=== PATIENT | female | born 1975 | race Caucasian/White ===

== ENCOUNTER 2018-11-16 20:02 | Inpatient (IN) ==
--- NOTE | 2018-11-16 20:21 | Emergency Department Note ---
ED Disposition Clinical Impression: Atypical chest pain, Hyponatremia Pancreatitis Qualifiers: Chronicity: acute Pancreatitis type: unspecified pancreatitis type Acute pancreatitis complication: no infection or necrosis Qualified Code(s): K85.90 - Acute pancreatitis without necrosis or infection, unspecified Disposition: Admitted As Inpatient Condition on Discharge: Fair Referrals: Nino Rose MD [Primary Care Provider] - - Critical Care Critical Care Time: No Attestation: On , the high probability of a clinically significant, sudden or life threatening deterioration of the following system(s) required my full and direct attention, intervention and personal management. The time I documented below is in addition to time spent performing reported procedures but includes the following listed in this critical care notation. Medical Decision Making - Medical Records Medical records reviewed: Yes: I reviewed the patient's medical records. - Efrain Inquiry Pt receiving controlled substance: No Vital Signs: 11/16/18 20:07 Temperature 98.8 F Temperature Source Oral Pulse Rate [Right] 102 H Respiratory Rate 18 Blood Pressure [Right Arm] 150/84 H Blood Pressure Mean [Right Arm] 106 Blood Pressure Source [Right Arm] Automatic Cuff Blood Pressure Position [Right Arm] Sitting 02 Sat by Pulse Oximetry 98 Oxygen Delivery Method Room Air - Lab Data Lab results reviewed: Yes: I reviewed the patient's lab results. Lab Results 11/16/18 20:20: WBC 14.2 H, RBC 4.45, Hgb 13.2, Hct 38.9, MCV 87.3, MCH 29.6, MCHC 34.1, RDW 13.0, Plt Count 326, MPV 7.4, Neut % (Auto) 74.5, Lymph % (Auto) 19.5, [place] % (Auto) 5.2, Eos % (Auto) 0.5, Baso % (Auto) 0.3, Neut # (Auto) 10.6 H, Lymph # (Auto) 2.8, [place] # (Auto) 0.7, Eos # (Auto) 0.1, Baso # (Auto) 0.1 11/16/18 20:20: Sodium 124 L, Potassium 3.6, Chloride 90 L, Carbon Dioxide 23, Anion Gap 14.6, BUN 11, Creatinine 0.86, Estimated Creat Clear 106, Estimated GFR 72, Est GFR ( Amer) 87, Glucose 121 H, Calcium 9.5, Troponin I < 0.02, Amylase 140 H 11/16/18 20:20: Total Bilirubin 0.5, Direct Bilirubin 0.1, Indirect Bilirubin 0.4, AST 23, ALT 31, Alkaline Phosphatase 84, Total Protein 8.0, Albumin 4.3, Lipase 590 H 11/16/18 20:35: Urine Color Yellow, Urine Appearance Clear, Urine pH 6.0, Ur Specific [place] 1.015, Urine Protein Negative, Urine Glucose (UA) Negative, Urine Ketones 1+, Urine Blood Negative, Urine Nitrate Negative, Urine Bilirubin Negative, Urine Urobilinogen 0.2, Ur Leukocyte Esterase Trace, Urine WBC Occasio nal, Ur Squamous Epith Cells 10-20 Result diagrams: 11/16/18 20:20 11/16/18 20:20 Orders (Tests/Meds): ED MEDICATIONS Generic Name Dose Route Start Last Admin Trade Name Freq PRN Reason Stop Dose Admin Sodium Chloride 1,000 mls @ 999 mls/hr 11/16/18 20:15 11/16/18 20:31 Sod Chlor 0.9% 1000ml Bag IV 11/16/18 21:15 999 mls/hr .[id number] ANNIE Administration Discontinued Medications Generic Name Dose Route Start Last Admin Trade Name Freq PRN Reason Stop Dose Admin Aspirin 324 mg 11/16/18 20:08 11/16/18 20:31 Aspirin 81mg Chewable Tablet PO 11/16/18 20:09 324 mg ONCE ONE Administration Ketorolac Tromethamine 30 mg 11/16/18 20:06 11/16/18 20:31 Toradol 30mg/Ml Vial IV 11/16/18 20:07 30 mg ONCE ONE Administration Morphine Sulfate 4 mg 11/16/18 21:48 Morphine 2mg/Ml Syringe IV 11/16/18 21:49 ONCE ONE Nitroglycerin 0.4 mg 11/16/18 20:06 11/16/18 20:30 Nitrostat 0.4mg Sl Tablet SL 11/16/18 20:07 Not Given ONCE ONE Ondansetron HCl 4 mg 11/16/18 20:06 11/16/18 20:31 Zofran 4mg/2ml Vial IV 11/16/18 20:07 4 mg ONCE ONE Administration Promethazine HCl 12.5 mg 11/16/18 21:49 Phenergan 25mg/Ml 1ml Vial IV 11/16/18 21:50 ONCE ONE Sodium Chloride 25 ml 11/16/18 21:49 Sod Chlor 0.9% 25ml Bag IV 11/16/18 21:50 ONCE ONE ORDERS Category Date Time Status CT abdomen pelvis wo con Stat Cat Scan 11/16/18 20:18 Taken Chest XR 2 view (NOT portable) [XR chest 2V] Stat Exams 11/16/18 20:05 Taken Lipid Panel Stat Lab 11/16/18 21:49 Ordered - Radiology Data #1 Image(s): Chest Image Reviewed: Yes I reviewed the patient's radiology image Preliminary Findings: Normal/NAD - CT Data CT Scan: Abdomen, Pelvis Time Received: 22:[address] Reviewed: Yes: I have viewed the radiologist's interpretation Preliminary Findings: Abnormal (acute pancreatitis) - ECG Data Tracing #1 I reviewed this ECG and interpreted as documented below: Normal Sinus Rhythm: Yes Ischemic changes: non-specific ST-T wave changes - Physician Consults Physician Consulted: ellie Reason -: Admission Chest Pain HPI - General Chief Complaint: Chest Pain Stated Complaint: chest pain Time Seen by Provider: 11/16/18 20:20 Mode of Arrival: Ambulatory Source of Information: Patient, Relative, Medical Record Limitations: No Limitations Description of Symptoms (Recalled from ER Triage Doc. by RN): Pt states she st arted having left chest pain this AM with hot flashes - History of Present Illness HPI narrative: pt with progressive upper abd pain over the last few days with nausea rad to back - no fever or vomiting - feels constipated - MD complaint: chest pain Onset (ago): day(s) Duration: intermittent Activity at onset: during rest Pain location: epigastric Severity: moderate Associated symptoms: nausea, vomiting Treatments prior to or on arrival for Cardiac Chest Pain: none - HAL Score for Non-Stemi Age of Patient: 40-49 years old Heart Rate: 90-109 bpm Systolic Blood Pressure: 140-159 mmHg Serum Creatinine: 0.80-1.19 mg/dl CHF [place] Class: I-No CHF Other Risk Factors: None Non-Stemi Risk Score: 71 - Related Data On Oral Contraceptives: No Home Medications Medication Instructions Recorded Confirmed Albuterol Sulfate [Proair Hfa 2 puffs IH Q4HP PRN 11/16/18 11/16/18 90mcg/puff Inh] Allergies Allergy/AdvReac Type Severity Reaction Status Date / Time No Known Allergies Allergy Verified 11/16/18 20:14 [facility] History - Hepatitis A Screen Drug use history?: No High risk sexual behaviors?: No History of sexually transmitted infection?: No Currently employed?: No Childcare worker?: No Do you have indoor plumbing?: Yes Do you have electricity?: Yes Attestation statement:: This patient has been screened for Hepatitis A risk factors. I have reviewed the patient's past medical history: Yes - Social History Alcohol Intake: never Occupational Status: unemployed - Psychiatric History Expresses thoughts of harming self/others: None Suicide Plan Description: No Plan ROS Obtained: Yes All systems reviewed & no additional complaints - Constitutional Constitutional: Denies fever(s) - Eyes Eyes: Denies change in vision - ENT Ears, Nose, Mouth, and Throat: Denies sore throat - Cardiovascular Cardiovascular: Reports chest pain, Denies dyspnea - Respiratory Respiratory: No cough - Gastrointestinal Gastrointestingal: Reports: as per HPI, constipation, nausea, vomiting. Denies: diarrhea - Genitourinary Female Genitourinary: Denies abnormal vaginal bleeding - Musculoskeletal Musculoskeletal: Denies joint pain - Integumentary/Breasts Skin/Breast: Denies rash - Neurologic Neurologic: Denies seizure-like activity Physical Exam - General General appearance: alert - Head Head exam: normocephalic - Eye Eye exam: Present: PERRL, EOMI. Absent: scleral icterus - ENT ENT exam: Present: mucous membranes moist - Neck Neck exam: Present: trachea midline - Respiratory Respiratory exam: Present: normal lung sounds bilaterally. Absent: respiratory distress - Cardiovascular Cardiovascular exam: Present: regular rate. Absent: systolic murmur - Abdominal Exam Abdominal exam: Present: soft, tenderness Abdominal tenderness: Present: LUQ, moderate - Extremities Exam Extremities exam: Present: full ROM - Neurological Exam Neurological exam: Present: alert, oriented X3, CN II-XII intact - Skin Skin exam: Absent: rash
[2018-11-16 20:30] LABS: Basophils % 0.3 % (0.1-2.0); Eosinophils # 0.1 K/mm3 (0.0-0.4); Eosinophils % 0.5 % (0.1-12.0); Hematocrit 38.9 % (37.0-47.0); Lymphocytes # 2.8 K/mm3 (0.7-4.5); Lymphocytes % 19.5 % (10-50); Mean Corpuscular Volume 87.3 fl (81-99); Mean Platelet Volume 7.4 fl (7.4-10.4); Monocytes # 0.7 K/mm3 (0.1-1.0); Monocytes % 5.2 % (1.7-9.3); Neutrophils # 10.6 K/mm3 (1.8-7.8); Neutrophils % 74.5 % (37.0-80.0); Platelet Count 326 K/mm3 (142-424); Red Blood Count 4.45 M/mm3 (4.20-5.40); White Blood Count 14.2 K/mm3 (4.8-10.8)
[2018-11-16 20:40] LABS: Mean Corpuscular HGB Conc 34.1 g/dL (31.8-35.4); Mean Corpuscular Hemoglobin 29.6 pg (27.0-31.2)
[2018-11-16 20:42] LABS: Basophils # 0.1 K/mm3 (0-0.2); Hemoglobin 13.2 g/dL (12.2-16.2)
[2018-11-16 20:45] LABS: Microscopic, Urine URINE MICROSCOPIC (MICROSCOPIC)
[2018-11-16 20:48] LABS: Potassium 3.6 mmoL/L (3.5-5.1)
[2018-11-16 20:55] LABS: Appearance,Urine CLEAR (Clear); Bilirubin,Urine Negative (Negative); Blood, Urine Negative (Negative); Color,Urine YELLOW (Yellow); Glucose,Urine (UA) Negative (Negative); Ketones,Urine 1+ (Negative); Leukocyte Esterase,Urine TRACE (Negative); Protein,Urine Negative (Negative); Specific Gravity, Urine 1.015 (1.005-1.030); Urobilinogen,Urine 0.2 EU/dl (0.2)
[2018-11-16 20:58] LABS: Anion Gap 14.6 mEq/L (5-15); Carbon Dioxide 23 mmol/L (21.0-32.0); Chloride 90 mmol/L (98-107); Sodium 124 mmol/L (136-145)
[2018-11-16 21:02] LABS: Bilirubin,Direct 0.1 mg/dL (0.0-0.2)
[2018-11-16 21:11] LABS: Blood Urea Nitrogen 11 mg/dL (7-18); Calcium 9.5 mg/dL (8.5-10.1); Glucose 121 mg/dL (74-106)
[2018-11-16 21:12] LABS: Albumin Level 4.3 gm/dL (3.4-5.0); Amylase 140 U/L (25-115); Bilirubin,Indirect 0.4 mg/dL (0.0-0.9); Bilirubin,Total 0.5 mg/dL (0.2-1.0)
[2018-11-16 21:13] LABS: WBC,Urine Occasional #/hpf (0-3)
[2018-11-17 06:37] LABS: Basophils % 0.3 % (0.1-2.0); Eosinophils # 0.1 K/mm3 (0.0-0.4); Eosinophils % 0.8 % (0.1-12.0); Hematocrit 32.9 % (37.0-47.0); Hemoglobin 12.7 g/dL (12.2-16.2); Lymphocytes % 18.6 % (10-50); Mean Corpuscular HGB Conc 38.7 g/dL (31.8-35.4); Mean Corpuscular Hemoglobin 33.9 pg (27.0-31.2); Mean Corpuscular Volume 87.7 fl (81-99); Mean Platelet Volume 7.4 fl (7.4-10.4); Monocytes # 0.6 K/mm3 (0.1-1.0); Monocytes % 5.3 % (1.7-9.3); Platelet Count 230 K/mm3 (142-424); Red Blood Count 3.75 M/mm3 (4.20-5.40); Red Cell Distribution Width 13.1 % (11.5-17.5); White Blood Count 10.7 K/mm3 (4.8-10.8)
[2018-11-17 07:00] LABS: Potassium 4.1 mmoL/L (3.5-5.1)
--- NOTE | 2018-11-17 07:37 | Pharmacy Consult Notes ---
[facility] Pharmacy VTE Monitoring - Patient Demographics Admission date: 11/16/18 Report Date: 11/17/18 Time: 07:37 Allergies/Adverse Reactions: Patient Allergies No Known Allergies Allergy (Verified 11/16/18 20:14) Height: 1.63 m Weight: 79.832 kg Patient Problems: Current Active Problems (Updated 11/16/18 @ 22:09 by Parvez Denney MD) Pancreatitis (Acute) Atypical chest pain (Acute) Hyponatremia (Acute) - VTE Risk Labs: VTE Related Lab Results Hgb 12.7 g/dL (12.2-16.2) 11/17/18 06:32 Hct 32.9 % (37.0-47.0) L 11/17/18 06:32 Plt Count 230 K/mm3 (142-424) D 11/17/18 06:32 BUN 11 mg/dL (7-18) 11/16/18 20:20 Creatinine 0.86 mg/dL (0.55-1.02) 11/16/18 20:20 Estimated Creat Clear 106 mL/min (50-200) 11/16/18 20:20 Was VTE Risk Assessment Performed: Yes VTE Score: 4 VTE Risk Level: Low Risk Clinical Trial Participant: No - Prophylaxis VTE Prophylaxis Ordered?: Yes Types of VTE Prophylaxis: TEDS Knee High
[2018-11-17 07:41] LABS: Anion Gap 13.1 mEq/L (5-15)
[2018-11-17 07:44] LABS: Calcium 7.3 mg/dL (8.5-10.1)
--- NOTE | 2018-11-17 08:24 | History & Physical Report ---
*Admission Date: 11/16/18 <Giovana Davis 11/17/18 08:24> *Chief complaint: Abdominal pain <Giovana Davis 11/17/18 08:38> *History of present illness: Ms Birmingham is a 43-year-old female with a history of depression and anxiety, and learning disability who for the past 4 days has been in a camp where she ate large quantities of food for each meal. She states she ate more than she has ever eaten. This included high fat foods and many carbs/sweets. Her bowels have moved only a small amount in the last 4 days. She developed abdominal pain, bloating, and belching. With the gas discomfort the pain did start to radiate up into her left chest. Thus she presented to [facility] emergency room for evaluation. With evaluation in the emergency room she received pain medicine, Zofran and Phenergan, and IV fluid bolus. She was felt to have a pancreatitis and was admitted for further evaluation and treatment. This a.m. she continues to feel bloated. She has passed no gas. She continues to belch. She remains n.p.o. She did sleep some after receiving pain medicine. <Giovana Davis 11/17/18 09:01> [facility] History Medical History: Reports:: Anxiety, Depression Denies:: Diabetes Mellitus Type 1, Diabetes Mellitus Type 2 <Giovana Davis 11/17/18 08:54> *Have you ever received a pneumonia vaccine?: No <Giovana Davis 11/17/18 08:24> *Have you received a flu vaccine this season?: Yes (fall 2017) <Giovana Davis 11/17/18 08:24> Comment:: allergies <Giovana Davis 11/17/18 08:54> Laterality Cases: Bilateral: Tonsillectomy <Giovana Davis 11/17/18 08:54> Other Surgeries: Yes: (x2), Tubal Ligation, Other (cryotherapy 4x- cervix) <Giovana Davis 11/17/18 08:24> Amputation: No <Giovana Davis 11/17/18 08:24> Fractures: No <Giovana Davis 11/17/18 08:24> Comment: Right wrist surgery x2 in 2000, bladder surgery 2009, urethral sling 2009, nose reconstruction in 2012 <RyanGiovana - 11/17/18 08:54> - *Social History Educational Level: Completed College <RyanGiovana - 11/17/18 08:24> Smoking Status: Former smoker <RyanGiovana - 11/17/18 08:24> Tobacco Type: cigarettes <RyanGiovana 11/17/18 08:24> Smoking End Date: 15 years ago <Giovana Davis 11/17/18 08:24> Alcohol Intake: current <RyanGiovana - 11/17/18 08:24> Alcohol Intake Frequency:: holidays/special occasions only <RyanGiovana - 11/17/18 08:24> *Occupational Status:: unemployed <RyanGiovana - 11/17/18 08:24> Housing: house <RyanGiovana 11/17/18 08:24> Household Members: spouse, children <RyanGiovana 11/17/18 08:24> *Travel in the last 8 weeks: None <RyanGiovana 11/17/18 08:24> - Psychiatric History Expresses thoughts of harming self/others: None <Giovana Davis 11/17/18 08:24> Suicide Plan Description: No Plan <RyanGiovana 11/17/18 08:24> Family Hx:: Asthma, Cancer, Coronary Artery Disease, Diabetes, Heart Attack, Hyperlipidemia, Hypertension, Kidney Disease, Stroke <Giovana Davis 11/17/18 08:24> Review of Systems - Constitutional Reports night sweats (Sometimes), Denies headache(s), Denies weakness <Giovana Davis 11/17/18 08:54> - ENT Denies ear pain, Denies sore throat <Giovana Davis 11/17/18 08:54> - *Cardiovascular Reports chest pain, Reports shortness of breath (When she has chest discomfort) <Giovana Davis 11/17/18 08:54> - *Respiratory Reports cough <Giovana Davis 11/17/18 08:54> Comments: She has had a recent cold <Giovana Davis 11/17/18 08:54> - *Gastrointestinal Reports abdominal pain, Reports belching, Reports bloating, Reports change in bowel habits, Reports change in stools, Reports constipation, Reports nausea, Denies coffee ground vomit, Denies loose stools, Denies vomiting blood, Denies bright, red blood in stools, Denies black, tarry stools, Denies vomiting [facility] 11/17/18 08:54> - *Genitourinary Denies difficulty urinating <[facility] 11/17/18 08:54> - *Musculoskeletal Denies abnormal walking, Denies joint pain, Denies body aches <[facility] 11/17/18 08:54> - *Neurologic Denies dizziness, Denies seizure-like activity <[facility] 11/17/18 08:54> - Psychiatric Reports anxiety, Reports depression <[facility] 11/17/18 08:54> Meds Home Medications Medication Instructions Recorded Confirmed Type Albuterol Sulfate [Proair Hfa 2 puffs IH QIDP PRN 11/16/18 11/17/18 History 90mcg/puff Inh] Beclomethasone Dipropionate [Qnasl] 2 spry NS DAILY PRN 11/17/18 11/17/18 History Benzonatate [Benzonatate 100mg 200 mg PO TID PRN 11/17/18 11/17/18 History cap] Carisoprodol [Soma 350mg tablet] 350 mg PO TIDP PRN 11/17/18 11/17/18 History Cetirizine HCl [Zyrtec] 10 mg PO DAILYP PRN 11/17/18 11/17/18 History Desog-E.estradiol/E.estradiol 1 tab PO DAILY 11/17/18 11/17/18 History [Azurette 28 Day Tablet] Meloxicam [Mobic 15 mg tab] 15 mg PO DAILY 11/17/18 11/17/18 History Montelukast Sodium [Singulair 10mg 10 mg PO PM PRN 11/17/18 11/17/18 History tablet] Olopatadine HCl [Pataday] 1 drp OP BIDP PRN 11/17/18 11/17/18 History SUMAtriptan succinate [Imitrex] 50 mg PO DIRECTED 11/17/18 11/17/18 History Tramadol HCl [Tramadol 50mg 50 mg PO TID PRN 11/17/18 11/17/18 History Tab] <Nino Rose - 11/17/18 14:11> Allergies Allergy/AdvReac Type Severity Reaction Status Date / Time No Known Allergies Allergy Verified 11/16/18 20:14 <Nino Rose - 11/17/18 14:11> Exam Vital signs and Labs for Last 24 Hours: Temp Pulse Resp BP Pulse Ox 99.0 F 93 H 18 119/80 97 11/17/18 08:00 11/17/18 08:00 11/17/18 08:00 11/17/18 08:00 11/17/18 08:00 Laboratory Results - last 24 hr 11/16/18 20:20: WBC 14.2 H, RBC 4.45, Hgb 13.2, Hct 38.9, MCV 87.3, MCH 29.6, MCHC 34.1, RDW 13.0, Plt Count 326, MPV 7.4, Neut % (Auto) 74.5, Lymph % (Auto) 19.5, [place] % (Auto) 5.2, Eos % (Auto) 0.5, Baso % (Auto) 0.3, Neut # (Auto) 10.6 H, Lymph # (Auto) 2.8, [place] # (Auto) 0.7, Eos # (Auto) 0.1, Baso # (Auto) 0.1 11/16/18 20:20: Sodium 124 L, Potassium 3.6, Chloride 90 L, Carbon Dioxide 23, Anion Gap 14.6, BUN 11, Creatinine 0.86, Estimated Creat Clear 106, Estimated GFR 72, Est GFR ( Amer) 87, Glucose 121 H, Calcium 9.5, Troponin I < 0.02, Amylase 140 H 11/16/18 20:20: Total Bilirubin 0.5, Direct Bilirubin 0.1, Indirect Bilirubin 0.4, AST 23, ALT 31, Alkaline Phosphatase 84, Total Protein 8.0, Albumin 4.3, Lipase 590 H 11/16/18 20:35: Urine Color Yellow, Urine Appearance Clear, Urine pH 6.0, Ur Specific [place] 1.015, Urine Protein Negative, Urine Glucose (UA) Negative, Urine Ketones 1+, Urine Blood Negative, Urine Nitrate Negative, Urine Bilirubin Negative, Urine Urobilinogen 0.2, Ur Leukocyte Esterase Trace, Urine WBC Occasional, Ur Squamous Epith Cells 10-20 11/17/18 06:32: WBC 10.7, RBC 3.75 L, Hgb 12.7, Hct 32.9 L, MCV 87.7, MCH 33.9 H , MCHC 38.7 H, RDW 13.1, Plt Count 230 D, MPV 7.4, Neut % (Auto) 75.0, Lymph % (Auto) 18.6, [place] % (Auto) 5.3, Eos % (Auto) 0.8, Baso % (Auto) 0.3, Neut # (Auto) 8.0 H, Lymph # (Auto) 2.0, [place] # (Auto) 0.6, Eos # (Auto) 0.1, Baso # (Auto) 0.0 11/17/18 06:32: Sodium 130 L, Potassium 4.1, Chloride 99, Carbon Dioxide 22, Anion Gap 13.1, BUN 12, Creatinine 0.67 D, Estimated Creat Clear 136, Estimated GFR 96, Est GFR ( Amer) 116 D, Glucose 121 H, Calcium 7.3 L D, Magnesium 1.9, Lipase 597 H 11/17/18 06:34: Triglycerides 4903 H*, Cholesterol 459 H, HDL Cholesterol 26 L, Cholesterol/HDL Ratio 17.7 H <Nino Rose - 11/17/18 14:11> Temp Pulse Resp BP Pulse Ox 98.5 F 91 H 17 102/66 L 97 11/17/18 03:42 11/17/18 03:42 11/17/18 03:42 11/17/18 03:42 11/17/18 03:42 Laboratory Results - last 24 hr 11/16/18 20:20: WBC 14.2 H, RBC 4.45, Hgb 13.2, Hct 38.9, MCV 87.3, MCH 29.6, MCHC 34.1, RDW 13.0, Plt Count 326, MPV 7.4, Neut % (Auto) 74.5, Lymph % (Auto) 19.5, [place] % (Auto) 5.2, Eos % (Auto) 0.5, Baso % (Auto) 0.3, Neut # (Auto) 10.6 H, Lymph # (Auto) 2.8, [place] # (Auto) 0.7, Eos # (Auto) 0.1, Baso # (Auto) 0.1 11/16/18 20:20: Sodium 124 L, Potassium 3.6, Chloride 90 L, Carbon Dioxide 23, Anion Gap 14.6, BUN 11, Creatinine 0.86, Estimated Creat Clear 106, Estimated GFR 72, Est GFR ( Amer) 87, Glucose 121 H, Calcium 9.5, Troponin I < 0.02, Amylase 140 H 11/16/18 20:20: Total Bilirubin 0.5, Direct Bilirubin 0.1, Indirect Bilirubin 0.4, AST 23, ALT 31, Alkaline Phosphatase 84, Total Protein 8.0, Albumin 4.3, Lipase 590 H 11/16/18 20:35: Urine Color Yellow, Urine Appearance Clear, Urine pH 6.0, Ur Specific [place] 1.015, Urine Protein Negative, Urine Glucose (UA) Negative, Urine Ketones 1+, Urine Blood Negative, Urine Nitrate Negative, Urine Bilirubin Negative, Urine Urobilinogen 0.2, Ur Leukocyte Esterase Trace, Urine WBC Occasional, Ur Squamous Epith Cells 10-20 11/17/18 06:32: WBC 10.7, RBC 3.75 L, Hgb 12.7, Hct 32.9 L, MCV 87.7, MCH 33.9 H , MCHC 38.7 H, RDW 13.1, Plt Count 230 D, MPV 7.4, Neut % (Auto) 75.0, Lymph % (Auto) 18.6, [place] % (Auto) 5.3, Eos % (Auto) 0.8, Baso % (Auto) 0.3, Neut # (Auto) 8.0 H, Lymph # (Auto) 2.0, [place] # (Auto) 0.6, Eos # (Auto) 0.1, Baso # (Auto) 0.0 11/17/18 06:32: Sodium 130 L, Potassium 4.1, Chloride 99, Carbon Dioxide 22, Anion Gap 13.1, BUN 12, Creatinine 0.67 D, Estimated Creat Clear 136, Estimated GFR 96, Est GFR ( Amer) 116 D, Glucose 121 H, Calcium 7.3 L D, Magnesium 1.9, Lipase 597 H <Giovana Davis 11/17/18 08:24> I & O for Last 24 hours: Intake & Output 11/15/18 11/16/18 11/17/18 11/18/18 11:59 11:59 11:59 11:59 Intake Total 1025 / 1025 Balance 1025 / 1025 Weight 176 lb <Nino Rose - 11/17/18 14:11> Intake & Output 11/14/18 11/15/18 11/16/18 11/17/18 11:59 11:59 11:59 11:59 Intake Total 1025 / 1025 Balance 1025 / 1025 Weight 176 lb <Giovana Davis 11/17/18 08:24> Radiology Reports for the Last 24 Hours: 11/16/18 CT abd/pelvis IMPRESSION: 1. Mild acute pancreatitis. 2. 11 mm left lower lobe nodule. Suggest [address] follow-up 11/16/2018 chest x-ray IMPRESSION: Negative chest, no acute finding <Giovana Davis 11/17/18 08:54> - Constitutional no acute distress <Giovana Davis 11/17/18 08:54> Comments: Abdominal discomfort with movement <Giovana Davis 11/17/18 08:54> - *Routine HEENT Exam Head: Present: normocephalic, atraumatic <Giovana Davis 11/17/18 08:54> Eye: Present: PERRL. Absent: conjunctival icterus, scleral injection <Giovana Davis 11/17/18 08:54> ENT: Present: mucous membranes moist, oropharynx clear, nares patent <Giovana Davis 11/17/18 08:54> - *Routine Neck Exam Present: supple. Absent: carotid bruit, lymphadenopathy, thyromegaly <Giovana Davis 11/17/18 08:54> - *Routine Respiratory Exam Present: CTA bilaterally (Anteriorly and posteriorly) <Giovana Davis 11/17/18 08:54> - *Routine Cardiovascular Exam Present: RRR <DavisGiovana 11/17/18 08:54> - *Routine Abdominal Exam Present: tenderness (Greater in the left mid and upper quadrant), distended <Giovana Davis 11/17/18 08:54> - *Routine Extremities Exam Present: pulses intact. Absent: edema, calf tenderness <Giovana Davis 11/17/18 08:54> - *Routine Neurological Exam Present: alert, oriented X3 <Roxanne Davishy 11/17/18 08:54> Assessment and Plan (1) Abdominal pain Current visit: Yes Status: Acute Category: Medical Code(s): R10.9 - Unspecified abdominal pain (2) Atypical chest pain Current visit: Yes Status: Acute Category: Medical Code(s): R07.89 - Other chest pain (3) Hyponatremia Current visit: Yes Status: Acute Category: Medical Code(s): E87.1 - Hypo- osmolality and hyponatremia (4) Pancreatitis Current visit: Yes Status: Acute Qualifiers: Chronicity: acute Pancreatitis type: unspecified pancreatitis type Acute pancreatitis complication: no infection or necrosis Qualified Code(s): K85.90 - Acute pancreatitis without necrosis or infection, unspecified Category: Medical Code(s): K85.90 - Acute pancreatitis without necrosis or infection, unspecified <Nino Rose 11/17/18 14:11> (1) Abdominal pain Current visit: Yes Status: Acute Category: Medical Code(s): R10.9 - Unspecified abdominal pain (2) Atypical chest pain Current visit: Yes Status: Acute Category: Medical Code(s): R07.89 - Other chest pain (3) Hyponatremia Current visit: Yes Status: Acute Category: Medical Code(s): E87.1 - Hypo- osmolality and hyponatremia (4) Pancreatitis Current visit: Yes Status: Acute Qualifiers: Chronicity: acute Pancreatitis type: unspecified pancreatitis type Acute pancreatitis complication: no infection or necrosis Qualified Code(s): K85.90 - Acute pancreatitis without necrosis or infection, unspecified Category: Medical Code(s): K85.90 - Acute pancreatitis without necrosis or infection, unspecified <Giovana Davis 11/17/18 08:59> - Assessment and plan all Dx Assessment and Plan for all problems:: Patient seen and examined. Concur with assessment and plan. Monitor labs. <Nino Rose 11/17/18 14:11> Gallbladder ultrasound. Continue with n.p.o. status. Will give Dulcolax suppository. <Giovana Davis - 11/17/18 09:01>
[2018-11-17 08:59] LABS: HDL Cholesterol 26 mg/dL (29-89)
[2018-11-17 09:51] LABS: Chol/HDL Ratio 17.7 (1-3.5); Cholesterol 459 mg/dL (140-200); Triglycerides 4903 mg/dL (30-200)
[2018-11-18 07:02] LABS: Basophils % 0.1 % (0.1-2.0); Eosinophils % 0.3 % (0.1-12.0); Hematocrit 33.5 % (37.0-47.0); Hemoglobin 11.6 g/dL (12.2-16.2); Lymphocytes # 1.6 K/mm3 (0.7-4.5); Lymphocytes % 12.8 % (10-50); Mean Corpuscular HGB Conc 34.6 g/dL (31.8-35.4); Mean Corpuscular Volume 89.4 fl (81-99); Mean Platelet Volume 7.6 fl (7.4-10.4); Monocytes # 0.6 K/mm3 (0.1-1.0); Monocytes % 4.8 % (1.7-9.3); Neutrophils # 9.9 K/mm3 (1.8-7.8); Platelet Count 238 K/mm3 (142-424); Red Blood Count 3.75 M/mm3 (4.20-5.40); Red Cell Distribution Width 13.2 % (11.5-17.5); White Blood Count 12.1 K/mm3 (4.8-10.8)
[2018-11-18 07:21] LABS: Albumin Level 2.4 gm/dL (3.4-5.0); Albumin/Globulin Ratio 0.6 (1.1-1.8); Anion Gap 21.4 mEq/L (5-15); Bilirubin,Total 0.7 mg/dL (0.2-1.0); Calcium 7.1 mg/dL (8.5-10.1); Globulin 3.9 gm/dl (1.3-3.2); Potassium 3.4 mmoL/L (3.5-5.1); Total Protein,Serum 6.3 gm/dL (6.4-8.2)
--- NOTE | 2018-11-18 09:04 | Progress Note ---
<Giovana Davis - Last Filed: 11/18/18 09:00> Internal Medicine - PN: Subj *Date: 11/18/18 *Time: 09:00 Interval history: Patient is feeling better. She has had flatus. She has had no stool. She has been n.p.o. She still has abdominal discomfort. She is comfortable as long as she does not move. Exam Vital signs and Labs for Last 24 Hours: Temp Pulse Resp BP Pulse Ox 99.1 F 101 H 17 113/72 94 L 11/18/18 08:00 11/18/18 08:00 11/18/18 08:00 11/18/18 08:00 11/18/18 08:00 Laboratory Results - last 24 hr 11/17/18 06:34: Triglycerides 4903 H*, Cholesterol 459 H, HDL Cholesterol 26 L, Cholesterol/HDL Ratio 17.7 H 11/18/18 06:52: WBC 12.1 H, RBC 3.75 L, Hgb 11.6 L, Hct 33.5 L, MCV 89.4, MCH 31.0, MCHC 34.6, RDW 13.2, Plt Count 238, MPV 7.6, Neut % (Auto) 82.0 H, Lymph % (Auto) 12.8, [place] % (Auto) 4.8, Eos % (Auto) 0.3, Baso % (Auto) 0.1, Neut # (Auto) 9.9 H, Lymph # (Auto) 1.6, [place] # (Auto) 0.6, Eos # (Auto) 0.0, Baso # (Auto) 0.0 11/18/18 06:52: Sodium 134 L, Potassium 3.4 L, Chloride 103, Carbon Dioxide 13 L D, Anion Gap 21.4 H, BUN 5 L D, Creatinine 0.62, Estimated Creat Clear 149, Estimated GFR 105, Est GFR ( Amer) 127, Glucose 143 H, Calcium 7.1 L, Total Bilirubin 0.7, AST 10 L D, ALT 17 D, Alkaline Phosphatase 63, Total Protein 6.3 L, Albumin 2.4 L D, Globulin 3.9 H, Albumin/Globulin Ratio 0.6 L, Amylase 141 H, Lipase 562 H I & O for Last 24 hours: Intake & Output 11/15/18 11/16/18 11/17/18 05/07/19 11:59 11:59 11:59 11:59 Intake Total 5 / 5 853 / 853 Balance 5 / 5 853 / 853 Weight 176 lb 178 lb - Constitutional no acute distress - *Routine Respiratory Exam Present: CTA bilaterally - *Routine Cardiovascular Exam Present: RRR - *Routine Abdominal Exam Comments: Abdomen is softer today. She is still distended. Positive bowel sounds. - *Routine Extremities Exam Absent: edema Assessment and Plan (1) Abdominal pain Current visit: Yes Status: Acute Category: Medical Code(s): R10.9 - Unspecified abdominal pain (2) Atypical chest pain Current visit: Yes Status: Acute Category: Medical Code(s): R07.89 - Other chest pain (3) Hyponatremia Current visit: Yes Status: Acute Category: Medical Code(s): E87.1 - Hypo- osmolality and hyponatremia (4) Pancreatitis Current visit: Yes Status: Acute Qualifiers: Chronicity: acute Pancreatitis type: unspecified pancreatitis type Acute pancreatitis complication: no infection or necrosis Qualified Code(s): K85.90 - Acute pancreatitis without necrosis or infection, unspecified Category: Medical Code(s): K85.90 - Acute pancreatitis without necrosis or infection, unspecified (5) Hypercholesterolemia with hypertriglyceridemia Current visit: Yes Status: Acute Category: Medical Code(s): E78.2 - Mixed hyperlipidemia - Assessment and plan all Dx Assessment and Plan for all problems:: Was started on insulin drip for high triglycerides. Continue with comfort and nausea management. Will try clear liquids. <Nino Rose - Last Filed: 11/18/18 16:42> Internal Medicine - PN: Subj *Date: 11/18/18 *Time: 16:34 Exam Vital signs and Labs for Last 24 Hours: Temp Pulse Resp BP Pulse Ox 99.1 F 102 H 22 118/65 94 L 11/18/18 08:00 11/18/18 16:11 11/18/18 16:11 11/18/18 16:00 11/18/18 16:11 Laboratory Results - last 24 hr 11/18/18 06:52: WBC 12.1 H, RBC 3.75 L, Hgb 11.6 L, Hct 33.5 L, MCV 89.4, MCH 31.0, MCHC 34.6, RDW 13.2, Plt Count 238, MPV 7.6, Neut % (Auto) 82.0 H, Lymph % (Auto) 12.8, [place] % (Auto) 4.8, Eos % (Auto) 0.3, Baso % (Auto) 0.1, Neut # (Auto) 9.9 H, Lymph # (Auto) 1.6, [place] # (Auto) 0.6, Eos # (Auto) 0.0, Baso # (Auto) 0.0 11/18/18 06:52: Sodium 134 L, Potassium 3.4 L, Chloride 103, Carbon Dioxide 13 L D, Anion Gap 21.4 H, BUN 5 L D, Creatinine 0.62, Estimated Creat Clear 149, Estimated GFR 105, Est GFR ( Amer) 127, Glucose 143 H, Calcium 7.1 L, Total Bilirubin 0.7, AST 10 L D, ALT 17 D, Alkaline Phosphatase 63, Total P rotein 6.3 L, Albumin 2.4 L D, Globulin 3.9 H, Albumin/Globulin Ratio 0.6 L, Amylase 141 H, Lipase 562 H 11/18/18 10:41: POC Glucose 104 I & O for Last 24 hours: Intake & Output 11/16/18 11/17/18 11/18/18 11/19/18 11:59 11:59 11:59 11:59 Intake Total 1025 / 1025 853 / 853 Output Total 1800 / 1800 Balance 1025 / 1025 853 / 853 -1800 / -1800 Weight 176 lb 178 lb Assessment and Plan (1) Acute pancreatitis Current visit: Yes Status: Acute Category: Medical Code(s): K85.90 - Acute pancreatitis without necrosis or infection, unspecified (2) Primary hypertriglyceridemia Current visit: Yes Status: Acute Category: Medical Code(s): E78.1 - Pure hyperglyceridemia (3) Abdominal pain Current visit: Yes Status: Acute Category: Medical Code(s): R10.9 - Unspecified abdominal pain (4) Atypical chest pain Current visit: Yes Status: Acute Category: Medical Code(s): R07.89 - Other chest pain (5) Hyponatremia Current visit: Yes Status: Acute Category: Medical Code(s): E87.1 - Hypo- osmolality and hyponatremia (6) Hypercholesterolemia with hypertriglyceridemia Current visit: Yes Status: Acute Category: Medical Code(s): E78.2 - Mixed hyperlipidemia - Assessment and plan all Dx Assessment and Plan for all problems:: Patient seen and examined. Still having abdominal pain. Has passed flatus but no BM. She is less distended but still very tender, diffusely. Will initiate insulin drip for her severe hypertriglyceridemia. Change fluids to D51/2NS. Monitor labs.
[2018-11-19 06:31] LABS: Basophils % 0.2 % (0.1-2.0); Eosinophils # 0.1 K/mm3 (0.0-0.4); Eosinophils % 0.7 % (0.1-12.0); Hematocrit 31.2 % (37.0-47.0); Lymphocytes # 1.7 K/mm3 (0.7-4.5); Lymphocytes % 12.3 % (10-50); Mean Corpuscular HGB Conc 33.4 g/dL (31.8-35.4); Mean Corpuscular Hemoglobin 30.3 pg (27.0-31.2); Mean Corpuscular Volume 90.6 fl (81-99); Mean Platelet Volume 7.7 fl (7.4-10.4); Monocytes # 0.8 K/mm3 (0.1-1.0); Monocytes % 5.8 % (1.7-9.3); Neutrophils # 11.1 K/mm3 (1.8-7.8); Neutrophils % 80.9 % (37.0-80.0); Platelet Count 253 K/mm3 (142-424); Red Blood Count 3.45 M/mm3 (4.20-5.40); Red Cell Distribution Width 13.3 % (11.5-17.5); White Blood Count 13.7 K/mm3 (4.8-10.8)
[2018-11-19 06:55] LABS: Albumin Level 2.4 gm/dL (3.4-5.0); Albumin/Globulin Ratio 0.6 (1.1-1.8); Anion Gap 11.3 mEq/L (5-15); Bilirubin,Total 0.9 mg/dL (0.2-1.0); Chol/HDL Ratio 5.6 (1-3.5); Potassium 3.3 mmoL/L (3.5-5.1); Total Protein,Serum 6.4 gm/dL (6.4-8.2)
[2018-11-19 07:50] LABS: Hemoglobin 10.5 g/dL (12.2-16.2)
--- NOTE | 2018-11-19 08:14 | Progress Note ---
<Giovana Davis - Last Filed: 11/19/18 08:27> Internal Medicine - PN: Subj *Date: 11/19/18 *Time: 08:27 Interval history: States that she had a rough night last night. Continues with abdominal pain requiring morphine which does give her nausea. Zofran helps. She passed flatus yesterday but none this a.m. She is belching. She took minimal p.o. liquids yesterday. Abdomen feels less distended. She denies chest pain and shortness of breath. She did have a fever last night with high Of 101.3. She generally does not feel well. Patient reports hematuria. Patient has been seen by Dr. Rose. Triglycerides dramatically decreased and insulin drip has been discontinued. Exam Vital signs and Labs for Last 24 Hours: Temp Pulse Resp BP Pulse Ox 99.3 F 99 H 22 116/59 L 91 L 11/19/18 06:00 11/19/18 06:00 11/19/18 06:00 11/19/18 06:00 11/19/18 06:00 Laboratory Results - last 24 hr 11/18/18 10:41: POC Glucose 104 11/18/18 12:04: POC Glucose 134 H 11/18/18 13:47: POC Glucose 148 H 11/18/18 15:42: POC Glucose 142 H 11/18/18 17:42: POC Glucose 144 H 11/18/18 20:10: POC Glucose 154 H 11/18/18 22:42: POC Glucose 169 H 11/19/18 00:02: POC Glucose 154 H 11/19/18 02:07: POC Glucose 116 H 11/19/18 03:45: POC Glucose 108 11/19/18 05:57: POC Glucose 102 11/19/18 06:14: WBC 13.7 H, RBC 3.45 L, Hgb 10.5 L, Hct 31.2 L, MCV 90.6, MCH 30.3, MCHC 33.4, RDW 13.3, Plt Count 253, MPV 7.7, Neut % (Auto) 80.9 H, Lymph % (Auto) 12.3, [place] % (Auto) 5.8, Eos % (Auto) 0.7, Baso % (Auto) 0.2, Neut # (Auto) 11.1 H, Lymph # (Auto) 1.7, [place] # (Auto) 0.8, Eos # (Auto) 0.1, Baso # (Auto) 0.0 11/19/18 06:14: Sodium 137, Potassium 3.3 L, Chloride 105, Carbon Dioxide 24 D, Anion Gap 11.3, BUN 3 L D, Creatinine 0.75 D, Estimated Creat Clear 123, Estimated GFR 84, Est GFR ( Amer) 102, Glucose 101 D, Calcium 8.0 L D, Total Bilirubin 0.9, AST 19 D, ALT 20, Alkaline Phosphatase 65, Total Protein 6.4, Albumin 2.4 L, Globulin 4.0 H, Albumin/Globulin Ratio 0.6 L, Triglycerides 289 H, Cholesterol 241 H, LDL Cholesterol 140 H, VLDL Cholesterol 58 H, HDL Cholesterol 43, Cholesterol/HDL Ratio 5.6 H, Lipase 340 I & O for Last 24 hours: Intake & Output 11/16/18 11/17/18 11/18/18 11/19/18 11:59 11:59 11:59 11:59 Intake Total 1025 / 1025 853 / 853 2260 / 2260 Output Total 3550 / 3550 Balance 1025 / 1025 853 / 853 -1290 / -1290 Weight 176 lb 178 lb - Constitutional no acute distress - *Routine Respiratory Exam Comments: Bibasilar crackles. - *Routine Cardiovascular Exam Present: RRR - *Routine Abdominal Exam Present: soft, normoactive bowel sounds, tenderness, distended (Diffusely tender) - *Routine Extremities Exam Present: pulses intact. Absent: edema - *Routine Neurological Exam Present: alert, oriented X3 Assessment and Plan (1) Acute pancreatitis Current visit: Yes Status: Acute Category: Medical Code(s): K85.90 - Acute pancreatitis without necrosis or infection, unspecified (2) Primary hypertriglyceridemia Current visit: Yes Status: Acute Category: Medical Code(s): E78.1 - Pure hyperglyceridemia (3) Abdominal pain Current visit: Yes Status: Acute Category: Medical Code(s): R10.9 - Unspecified abdominal pain (4) Atypical chest pain Current visit: Yes Status: Acute Category: Medical Code(s): R07.89 - Other chest pain (5) Hyponatremia Current visit: Yes Status: Acute Category: Medical Code(s): E87.1 - Hypo- osmolality and hyponatremia (6) Hypercholesterolemia with hypertriglyceridemia Current visit: Yes Status: Acute Category: Medical Code(s): E78.2 - Mixed hyperlipidemia (7) Hematuria Current visit: Yes Status: Acute Category: Medical Code(s): R31.9 - Hematuria, unspecified (8) Hypokalemia Current visit: Yes Status: Acute Category: Medical Code(s): E87.6 - Hypokalemia - Assessment and plan all Dx Assessment and Plan for all problems:: We will repeat urinalysis. Will start fenofibrate and KCL. Will continue with GI rest until symptoms improve. Continue with IV fluids as well. <Nino Rose - Last Filed: 11/19/18 08:38> Internal Medicine - PN: Subj *Date: 11/19/18 *Time: 08:35 Exam Vital signs and Labs for Last 24 Hours: Temp Pulse Resp BP Pulse Ox 99.3 F 99 H 22 116/59 L 91 L 11/19/18 06:00 11/19/18 06:00 11/19/18 06:00 11/19/18 06:00 11/19/18 06:00 Laboratory Results - last 24 hr 11/18/18 10:41: POC Glucose 104 11/18/18 12:04: POC Glucose 134 H 11/18/18 13:47: POC Glucose 148 H 11/18/18 15:42: POC Glucose 142 H 11/18/18 17:42: POC Glucose 144 H 11/18/18 20:10: POC Glucose 154 H 11/18/18 22:42: POC Glucose 169 H 11/19/18 00:02: POC Glucose 154 H 11/19/18 02:07: POC Glucose 116 H 11/19/18 03:45: POC Glucose 108 11/19/18 05:57: POC Glucose 102 11/19/18 06:14: WBC 13.7 H, RBC 3.45 L, Hgb 10.5 L, Hct 31.2 L, MCV 90.6, MCH 30.3, MCHC 33.4, RDW 13.3, Plt Count 253, MPV 7.7, Neut % (Auto) 80.9 H, Lymph % (Auto) 12.3, [place] % (Auto) 5.8, Eos % (Auto) 0.7, Baso % (Auto) 0.2, Neut # (Auto) 11.1 H, Lymph # (Auto) 1.7, [place] # (Auto) 0.8, Eos # (Auto) 0.1, Baso # (Auto) 0.0 11/19/18 06:14: Sodium 137, Potassium 3.3 L, Chloride 105, Carbon Dioxide 24 D, Anion Gap 11.3, BUN 3 L D, Creatinine 0.75 D, Estimated Creat Clear 123, Estimated GFR 84, Est GFR ( Amer) 102, Glucose 101 D, Calcium 8.0 L D, Total Bilirubin 0.9, AST 19 D, ALT 20, Alkaline Phosphatase 65, Total Protein 6.4, Albumin 2.4 L, Globulin 4.0 H, Albumin/Globulin Ratio 0.6 L, Triglycerides 289 H, Cholesterol 241 H, LDL Cholesterol 140 H, VLDL Cholesterol 58 H, HDL Cholesterol 43, Cholesterol/HDL Ratio 5.6 H, Lipase 340 I & O for Last 24 hours: Intake & Output 11/16/18 11/17/18 11/18/18 11/19/18 11:59 11:59 11:59 11:59 Intake Total 1025 / 1025 853 / 853 2260 / 2260 Output Total 3550 / 3550 Balance 1025 / 1025 853 / 853 -1290 / -1290 Weight 176 lb 178 lb Assessment and Plan (1) Acute pancreatitis Current visit: Yes Status: Acute Category: Medical Code(s): K85.90 - Acute pancreatitis without necrosis or infection, unspecified (2) Primary hypertriglyceridemia Current visit: Yes Status: Acute Category: Medical Code(s): E78.1 - Pure hyperglyceridemia (3) Abdominal pain Current visit: Yes Status: Acute Category: Medical Code(s): R10.9 - Unspecified abdominal pain (4) Atypical chest pain Current visit: Yes Status: Acute Category: Medical Code(s): R07.89 - Other chest pain (5) Hyponatremia Current visit: Yes Status: Acute Category: Medical Code(s): E87.1 - Hypo- osmolality and hyponatremia (6) Hypercholesterolemia with hypertriglyceridemia Current visit: Yes Status: Acute Category: Medical Code(s): E78.2 - Mixed hyperlipidemia (7) Hematuria Current visit: Yes Status: Acute Category: Medical Code(s): R31.9 - Hem aturia, unspecified (8) Hypokalemia Current visit: Yes Status: Acute Category: Medical Code(s): E87.6 - Hypokalemia - Assessment and plan all Dx Assessment and Plan for all problems:: Patient seen and examined. Pain is rated at 5/10. Tolerating few clear liquids. Trigs much improved. Will d/c insulin drip and start Fenofibrate. One episode of low grade fever last night. C/o "pink urine". Will check UA. [place] score is 2..
[2018-11-19 09:46] LABS: Microscopic, Urine URINE MICROSCOPIC (MICROSCOPIC)
[2018-11-19 09:50] LABS: Appearance,Urine CLEAR (Clear); Bilirubin,Urine Negative (Negative); Blood, Urine TRACE-I (Negative); Color,Urine YELLOW (Yellow); Glucose,Urine (UA) Negative (Negative); Ketones,Urine Negative (Negative); Leukocyte Esterase,Urine 2+ (Negative); Protein,Urine Negative (Negative); Specific Gravity, Urine <= 1.005 (1.005-1.030); Urobilinogen,Urine 0.2 EU/dl (0.2)
[2018-11-19 10:17] LABS: Bacteria,Urine 1+ /lpf; RBC,Urine Occasional #/hpf (0-3)
[2018-11-20 07:14] LABS: Basophils % 0.2 % (0.1-2.0); Eosinophils # 0.1 K/mm3 (0.0-0.4); Eosinophils % 0.9 % (0.1-12.0); Hematocrit 31.9 % (37.0-47.0); Hemoglobin 10.2 g/dL (12.2-16.2); Lymphocytes # 2.1 K/mm3 (0.7-4.5); Lymphocytes % 17.7 % (10-50); Mean Corpuscular HGB Conc 31.8 g/dL (31.8-35.4); Mean Corpuscular Hemoglobin 29.7 pg (27.0-31.2); Mean Corpuscular Volume 93.5 fl (81-99); Mean Platelet Volume 7.8 fl (7.4-10.4); Monocytes # 0.7 K/mm3 (0.1-1.0); Monocytes % 5.8 % (1.7-9.3); Neutrophils # 8.8 K/mm3 (1.8-7.8); Neutrophils % 75.3 % (37.0-80.0); Platelet Count 284 K/mm3 (142-424); Red Blood Count 3.42 M/mm3 (4.20-5.40); Red Cell Distribution Width 13.3 % (11.5-17.5); White Blood Count 11.7 K/mm3 (4.8-10.8)
[2018-11-20 07:31] LABS: Albumin Level 2.3 gm/dL (3.4-5.0); Albumin/Globulin Ratio 0.5 (1.1-1.8); Anion Gap 13.6 mEq/L (5-15); Bilirubin,Total 0.8 mg/dL (0.2-1.0); Calcium 8.2 mg/dL (8.5-10.1); Chol/HDL Ratio 7.9 (1-3.5); Globulin 4.3 gm/dl (1.3-3.2); Potassium 3.6 mmoL/L (3.5-5.1); Total Protein,Serum 6.6 gm/dL (6.4-8.2)
--- NOTE | 2018-11-20 08:26 | Progress Note ---
<April Carmona - Last Filed: 11/20/18 08:25> Internal Medicine - PN: Subj *Date: 11/20/18 *Time: 08:25 Interval history: Patient is still feeling poorly today. She complains of diffuse abdominal pain and nausea. She is getting antiemetics which helped. She has not had any breakfast this morning. She states she has slept for the last day and a half. Exam Vital signs and Labs for Last 24 Hours: Temp Pulse Resp BP Pulse Ox 99 F 84 16 124/76 91 L 11/20/18 04:00 11/20/18 04:00 11/20/18 04:00 11/20/18 04:00 11/20/18 04:00 Laboratory Results - last 24 hr 11/19/18 09:00: Urine Color Yellow, Urine Appearance Clear, Urine pH 6.0, Ur Specific [place] <= 1.005, Urine Protein Negative, Urine Glucose (UA) Negative, Urine Ketones Negative, Urine Blood Trace-i, Urine Nitrate Negative, Urine Bilirubin Negative, Urine Urobilinogen 0.2, Ur Leukocyte Esterase 2+ A, Urine RBC Occasional, Urine WBC 5-10, Ur Squamous Epith Cells 10-20, Urine Bacteria 1+ 11/20/18 06:55: WBC 11.7 H, RBC 3.42 L, Hgb 10.2 L, Hct 31.9 L, MCV 93.5, MCH 29.7, MCHC 31.8, RDW 13.3, Plt Count 284, MPV 7.8, Neut % (Auto) 75.3, Lymph % (Auto) 17.7, [place] % (Auto) 5.8, Eos % (Auto) 0.9, Baso % (Auto) 0.2, Neut # (Auto) 8.8 H, Lymph # (Auto) 2.1, [place] # (Auto) 0.7, Eos # (Auto) 0.1, Baso # (Auto) 0.0 11/20/18 06:55: Sodium 141, Potassium 3.6, Chloride 106, Carbon Dioxide 25, Anion Gap 13.6, BUN 5 L D, Creatinine 0.72, Estimated Creat Clear 131, Estimated GFR 88, Est GFR ( Amer) 107, Glucose 106, Calcium 8.2 L, Total Bilirubin 0.8, AST 23, ALT 27 D, Alkaline Phosphatase 71, Total Protein 6.6, Albumin 2.3 L, Globulin 4.3 H, Albumin/Globulin Ratio 0.5 L, Triglycerides 244 H, Cholesterol 262 H, LDL Cholesterol 180 H, VLDL Cholesterol 49 H, HDL Cholesterol 33, Cholesterol/HDL Ratio 7.9 H, Amylase 86, Lipase 297 I & O for Last 24 hours: Intake & Output 11/17/18 11/18/18 11/19/18 11/20/18 11:59 11:59 11:59 11:59 Intake Total 1025 / 1025 853 / 853 2260 / 2260 1740 / 1740 Output Total 3550 / 3550 2600 / 2600 Balance 1025 / 1025 853 / 853 -1290 / -1290 -860 / -860 Weight 176 lb 178 lb 182 lb 2 oz - Constitutional no acute distress - *Routine Respiratory Exam Present: CTA bilaterally - *Routine Cardiovascular Exam Present: RRR - *Routine Abdominal Exam Present: soft, normoactive bowel sounds, tenderness (diffuse) - *Routine Extremities Exam Absent: cyanosis, clubbing, edema Assessment and Plan (1) Acute pancreatitis Current visit: Yes Status: Acute Category: Medical Code(s): K85.90 - Acute pancreatitis without necrosis or infection, unspecified (2) Primary hypertriglyceridemia Current visit: Yes Status: Acute Category: Medical Code(s): E78.1 - Pure hyperglyceridemia (3) Abdominal pain Current visit: Yes Status: Acute Category: Medical Code(s): R10.9 - Unspecified abdominal pain (4) Atypical chest pain Current visit: Yes Status: Acute Category: Medical Code(s): R07.89 - Other chest pain (5) Hyponatremia Current visit: Yes Status: Acute Category: Medical Code(s): E87.1 - Hypo- osmolality and hyponatremia (6) Hypercholesterolemia with hypertriglyceridemia Current visit: Yes Status: Acute Category: Medical Code(s): E78.2 - Mixed hyperlipidemia (7) Hematuria Current visit: Yes Status: Acute Category: Medical Code(s): R31.9 - Hematuria, unspecified (8) Hypokalemia Current visit: Yes Status: Acute Category: Medical Code(s): E87.6 - Hypokalemia - Assessment and plan all Dx Assessment and Plan for all problems:: White blood cell count is improving. Potassium is normalized. Amylase and lipase are normal. Will discuss further care with Dr. Rose. <Nino Rose - Last Filed: 11/20/18 17:45> Internal Medicine - PN: Subj *Date: 11/20/18 *Time: 17:44 Exam Vital signs and Labs for Last 24 Hours: Temp Pulse Resp BP Pulse Ox 98.5 F 82 16 144/84 H 91 L 11/20/18 16:00 11/20/18 16:00 11/20/18 16:00 11/20/18 16:00 11/20/18 16:00 Laboratory Results - last 24 hr 11/20/18 06:55: WBC 11.7 H, RBC 3.42 L, Hgb 10.2 L, Hct 31.9 L, MCV 93.5, MCH 29.7, MCHC 31.8, RDW 13.3, Plt Count 284, MPV 7.8, Neut % (Auto) 75.3, Lymph % (Auto) 17.7, [place] % (Auto) 5.8, Eos % (Auto) 0.9, Baso % (Auto) 0.2, Neut # (Auto) 8.8 H, Lymph # (Auto) 2.1, [place] # (Auto) 0.7, Eos # (Auto) 0.1, Baso # (Auto) 0.0 11/20/18 06:55: Sodium 141, Potassium 3.6, Chloride 106, Carbon Dioxide 25, Anion Gap 13.6, BUN 5 L D, Creatinine 0.72, Estimated Creat Clear 131, Estimated GFR 88, Est GFR ( Amer) 107, Glucose 106, Calcium 8.2 L, Total Bilirubin 0.8, AST 23, ALT 27 D, Alkaline Phosphatase 71, Total Protein 6.6, Albumin 2.3 L, Globulin 4.3 H, Albumin/Globulin Ratio 0.5 L, Triglycerides 244 H, [place] 262 H, LDL Cholesterol 180 H, VLDL Cholesterol 49 H, HDL Cholesterol 33, Cholesterol/HDL Ratio 7.9 H, Amylase 86, Lipase 297 I & O for Last 24 hours: Intake & Output 11/18/18 11/19/18 11/20/18 11/21/18 11:59 11:59 11:59 11:59 Intake Total 853 / 853 2260 / 2260 1740 / 1740 Output Total 3550 / 3550 2600 / 2600 Balance 853 / 853 -1290 / -1290 -860 / -860 Weight 178 lb 182 lb 2 oz Microbiology Reports for the Last 24 Hours: Microbiology 11/19/18 09:00 Urine,Random Urine Culture - Preliminary NO GROWTH AFTER 24 HOURS Assessment and Plan (1) Acute pancreatitis Current visit: Yes Status: Acute Category: Medical Code(s): K85.90 - Acute pancreatitis without necrosis or infection, unspecified (2) Primary hypertriglyceridemia Current visit: Yes Status: Acute Category: Medical Code(s): E78.1 - Pure hyperglyceridemia (3) Abdominal pain Current visit: Yes Status: Acute Category: Medical Code(s): R10.9 - Unspecified abdominal pain (4) Atypical chest pain Current visit: Yes Status: Acute Category: Medical Code(s): R07.89 - Other chest pain (5) Hyponatremia Current visit: Yes Status: Acute Category: Medical Code(s): E87.1 - Hypo- osmolality and hyponatremia (6) Hypercholesterolemia with hypertriglyceridemia Current visit: Yes Status: Acute Category: Medical Code(s): E78.2 - Mixed hyperlipidemia (7) Hematuria Current visit: Yes Status: Acute Category: Medical Code(s): R31.9 - Hematuria, unspecified (8) Hypokalemia Current visit: Yes Status: Acute Category: Medical Code(s): E87.6 - Hypokalemia - Assessment and plan all Dx Assessment and Plan for all problems:: Patient seen and examined. Her labs are better but clinically her pain, nausea and bloating have not improved. Will plan to repeat CT scan and consult with Dr. Lee.
[2018-11-21 06:17] LABS: Basophils % 0.3 % (0.1-2.0); Eosinophils # 0.1 K/mm3 (0.0-0.4); Hematocrit 29.9 % (37.0-47.0); Hemoglobin 9.6 g/dL (12.2-16.2); Lymphocytes % 20.9 % (10-50); Mean Corpuscular HGB Conc 32.2 g/dL (31.8-35.4); Mean Corpuscular Hemoglobin 30.1 pg (27.0-31.2); Mean Corpuscular Volume 93.4 fl (81-99); Mean Platelet Volume 7.5 fl (7.4-10.4); Monocytes # 0.7 K/mm3 (0.1-1.0); Monocytes % 7.2 % (1.7-9.3); Neutrophils # 6.7 K/mm3 (1.8-7.8); Neutrophils % 70.6 % (37.0-80.0); Platelet Count 299 K/mm3 (142-424); Red Cell Distribution Width 13.2 % (11.5-17.5); White Blood Count 9.5 K/mm3 (4.8-10.8)
[2018-11-21 06:28] LABS: Albumin Level 2.2 gm/dL (3.4-5.0); Albumin/Globulin Ratio 0.5 (1.1-1.8); Anion Gap 11.7 mEq/L (5-15); Bilirubin,Total 0.9 mg/dL (0.2-1.0); Calcium 8.2 mg/dL (8.5-10.1); Globulin 4.1 gm/dl (1.3-3.2); Potassium 3.7 mmoL/L (3.5-5.1); Total Protein,Serum 6.3 gm/dL (6.4-8.2)
--- NOTE | 2018-11-21 08:17 | Progress Note ---
Internal Medicine - PN: Subj *Date: 11/21/18 *Time: 08:11 Interval history: "I feel a little better." Less pain. Less nausea. Tolerated some toast. Exam Vital signs and Labs for Last 24 Hours: Temp Pulse Resp BP Pulse Ox 98.4 F 84 18 115/71 91 L 11/21/18 07:49 11/21/18 07:49 11/21/18 07:49 11/21/18 07:49 11/21/18 07:49 Laboratory Results - last 24 hr 11/21/18 05:25: WBC 9.5, RBC 3.20 L, Hgb 9.6 L, Hct 29.9 L, MCV 93.4, MCH 30.1, MCHC 32.2, RDW 13.2, Plt Count 299, MPV 7.5, Neut % (Auto) 70.6, Lymph % (Auto) 20.9, [place] % (Auto) 7.2, Eos % (Auto) 1.0, Baso % (Auto) 0.3, Neut # (Auto) 6.7, Lymph # (Auto) 2.0, [place] # (Auto) 0.7, Eos # (Auto) 0.1, Baso # (Auto) 0.0 11/21/18 05:25: Sodium 140, Potassium 3.7, Chloride 105, Carbon Dioxide 27, Anion Gap 11.7, BUN 6 L, Creatinine 0.67, Estimated Creat Clear 141, Estimated GFR 96, Est GFR ( Amer) 116, Glucose 111 H, Calcium 8.2 L, Total Bilirubin 0.9, AST 37 D, ALT 37 D, Alkaline Phosphatase 74, Total Protein 6.3 L, Albumin 2.2 L, Globulin 4.1 H, Albumin/Globulin Ratio 0.5 L I & O for Last 24 hours: Intake & Output 11/18/18 11/19/18 11/20/18 11/21/18 11:59 11:59 11:59 11:59 Intake Total 853 / 853 2260 / 2260 1740 / 1740 4093 / 4093 Output Total 3550 / 3550 2600 / 2600 Balance 853 / 853 -1290 / -1290 -860 / -860 4093 / 4093 Weight 178 lb 182 lb 2 oz Microbiology Reports for the Last 24 Hours: Microbiology 11/19/18 09:00 Urine,Random Urine Culture - Final Multiple organisms, suggests contamination. - Constitutional Comments: appears to feel better - *Routine Respiratory Exam Comments: few crackles in bases - *Routine Cardiovascular Exam Present: RRR - *Routine Abdominal Exam Comments: soft, less distended. Diffusely tender but improved Assessment and Plan (1) Acute pancreatitis Current visit: Yes Status: Acute Category: Medical Code(s): K85.90 - Acute pancreatitis without necrosis or infection, unspecified (2) Primary hypertriglyceridemia Current visit: Yes Status: Acute Category: Medical Code(s): E78.1 - Pure hyperglyceridemia (3) Abdominal pain Current visit: Yes Status: Acute Category: Medical Code(s): R10.9 - Unspecified abdominal pain (4) Atypical chest pain Current visit: Yes Status: Acute Category: Medical Code(s): R07.89 - Other chest pain (5) Hyponatremia Current visit: Yes Status: Acute Category: Medical Code(s): E87.1 - Hypo-osmolality and hyponatremia (6) Hypercholesterolemia with hypertriglyceridemia Current visit: Yes Status: Acute Category: Medical Code(s): E78.2 - Mixed hyperlipidemia (7) Hematuria Current visit: Yes Status: Acute Category: Medical Code(s): R31.9 - Hematuria, unspecified (8) Hypokalemia Current visit: Yes Status: Acute Category: Medical Code(s): E87.6 - Hypokalemia - Assessment and plan all Dx Assessment and Plan for all problems:: Seems to be improved today. Will continue per orders pending GI consult.
--- NOTE | 2018-11-21 14:04 | Procedure Note ---
[facility] Procedure Note Procedure Note:: Gastroenterology Consultation Date of Service-November 21, 2018 History of Present Illness: Mrs. Almazan is a 43-year-old female who presented with acute pancreatitis. The patient did have hypertriglyceridemia and had insulin drip performed with normalization/stabilization of her triglycerides. The patient does have a history of hyperlipidemia/hypertriglyceridemia and her brother had pancreatitis fairly recently. She reports no other family history. Her ultrasound/CAT scan did show some sludge but her biliary chemistries have been normal and there was no ductal dilation. Her CAT scan did show moderate acute pancreatitis with fluid collections and extension of the inflammation into the perinephric fat plane. There was phlegmonous inflammation but no necrosis. There appeared to be more significant disease in the body and tail the pancreas. The patient has had moderate pain but is now out of the intensive care unit and improved. She reports no alcohol except on rare occasion and she quit tobacco years ago. Past Medical History: 1. Asthma/allergies Past Surgical History: 1. Tonsillectomy 2. section x2 3. Wrist surgery 4. Urethral sling Medications: 1. Albuterol 2. Estradiol 3. Mobic 4. Sumatriptan 5. Tramadol ALLERGIES: No known drug allergies Social History: See chart Family History: See chart Review of Systems: See chart Physical Examination: Gen.: The patient is a well-developed well-nourished individual in no acute distress HEENT: Normocephalic/atraumatic extraocular movements are intact anicteric Neck: Supple no lymphadenopathy Chest: Clear to auscultation Cardiovascular: Regular rate and rhythm Abdomen: Normoactive bowel sounds soft, tenderness generalized with moderate distention, no rebound or guarding,, no masses, no hepatosplenomegaly Extremities: No edema Labs: See chart Radiology: See chart Impression/Plan: 1. Moderate acute pancreatitis secondary to hypertriglyceridemia. The patient did have insulin administration. I believe her initial triglyceride levels exceeded 1000 mg/DL. Certainly the persistence of this can worsen the clinical outcome and this has significantly improved. Presently, the patient does not have any evidence of necrosis. Given the severity of her pancreatitis, I do feel that she will have a slightly more prolonged course. Presently this is supportive measures with control of pain. This would also be early administration of nutrition and the dietitian has seen this patient. I would consider MRCP only if she has a recurrent bout. There is nothing to support biliary pancreatitis presently. We do believe that hypertriglyceridemia is responsible for approximately 5% of acute pancreatitis and usually when the triglyceride levels are very high (greater than 1000). The mechanism is not clear but chylomicrons are responsible for inflammation. Triglyceride and glucose control are very important not only initially but as maintenance.
--- NOTE | 2018-11-22 08:18 | Progress Note ---
Internal Medicine - PN: Subj *Date: 11/22/18 *Time: 08:54 Interval history: Did not rest well mainly due to headache which was unrelieved by the morphine. Rates abdominal pain at 5/10. No vomiting. No BM. Tolerating current diet of liquids and toast. Breeze to be added today Exam Vital signs and Labs for Last 24 Hours: Temp Pulse Resp BP Pulse Ox 98.8 F 76 18 130/76 94 L 11/22/18 07:58 11/22/18 07:58 11/22/18 07:58 11/22/18 07:58 11/22/18 07:58 I & O for Last 24 hours: Intake & Output 11/19/18 11/20/18 11/21/18 11/22/18 11:59 11:59 11:59 11:59 Intake Total 2260 / 2260 1740 / 1740 4093 / 4093 2013 Output Total 3550 / 3550 2600 / 2600 Balance -1290 / -1290 -860 / -860 4093 / 4093 2013 Weight 182 lb 2 oz 181 lb 4 oz Microbiology Reports for the Last 24 Hours: Microbiology 11/19/18 09:00 Urine,Random Urine Culture - Final Multiple organisms, suggests contamination. - Constitutional Comments: appears not to feel well - *Routine Respiratory Exam Present: CTA bilaterally (anteriorly) - *Routine Cardiovascular Exam Present: RRR - *Routine Abdominal Exam Present: soft, tenderness (diffuse moderate tenderness, diminished BS). Absent: distended Assessment and Plan (1) Acute pancreatitis Current visit: Yes Status: Acute Category: Medical Code(s): K85.90 - Acute pancreatitis without necrosis or infection, unspecified (2) Primary hypertriglyceridemia Current visit: Yes Status: Acute Category: Medical Code(s): E78.1 - Pure hyperglyceridemia (3) Abdominal pain Current visit: Yes Status: Acute Category: Medical Code(s): R10.9 - Unspecified abdominal pain (4) Hyponatremia Current visit: Yes Status: Resolved Category: Medical Code(s): E87.1 - Hypo-osmolality and hyponatremia (5) Hypercholesterolemia with hypertriglyceridemia Current visit: Yes Status: Acute Category: Medical Code(s): E78.2 - Mixed hyperlipidemia (6) Hematuria Current visit: Yes Status: Acute Category: Medical Code(s): R31.9 - Hematuria, unspecified (7) Hypokalemia Current visit: Yes Status: Resolved Category: Medical Code(s): E87.6 - Hypokalemia - Assessment and plan all Dx Assessment and Plan for all problems:: Will order Tramadol for headache. Continue diet as tolerated. Dulcolax suppository. Encourage OOB activity
[2018-11-23 06:14] LABS: Basophils # 0.1 K/mm3 (0-0.2); Basophils % 0.8 % (0.1-2.0); Eosinophils # 0.2 K/mm3 (0.0-0.4); Eosinophils % 2.3 % (0.1-12.0); Hematocrit 33.6 % (37.0-47.0); Hemoglobin 10.9 g/dL (12.2-16.2); Lymphocytes # 2.1 K/mm3 (0.7-4.5); Lymphocytes % 25.5 % (10-50); Mean Corpuscular HGB Conc 32.5 g/dL (31.8-35.4); Mean Corpuscular Hemoglobin 29.5 pg (27.0-31.2); Mean Corpuscular Volume 90.9 fl (81-99); Mean Platelet Volume 7.4 fl (7.4-10.4); Monocytes # 0.7 K/mm3 (0.1-1.0); Monocytes % 8.5 % (1.7-9.3); Neutrophils # 5.1 K/mm3 (1.8-7.8); Platelet Count 396 K/mm3 (142-424); White Blood Count 8.1 K/mm3 (4.8-10.8)
[2018-11-23 06:28] LABS: Anion Gap 14.3 mEq/L (5-15); Calcium 8.8 mg/dL (8.5-10.1); Potassium 4.3 mmoL/L (3.5-5.1)
--- NOTE | 2018-11-23 08:08 | Progress Note ---
Internal Medicine - PN: Subj *Date: 11/23/18 *Time: 08:44 Interval history: She is feeling better with less abdominal pain. She still has some nausea. Headache has improved. She is tolerating her current diet and feels like eating more. She had a small bowel movement yesterday Exam Vital signs and Labs for Last 24 Hours: Temp Pulse Resp BP Pulse Ox 98.9 F 79 18 128/84 94 L 11/23/18 07:54 11/23/18 07:54 11/23/18 07:54 11/23/18 07:54 11/23/18 07:54 Laboratory Results - last 24 hr 11/23/18 05:40: WBC 8.1, RBC 3.70 L, Hgb 10.9 L, Hct 33.6 L, MCV 90.9, MCH 29.5, MCHC 32.5, RDW 13.0, Plt Count 396 D, MPV 7.4, Neut % (Auto) 63.0, Lymph % (Auto) 25.5, Williamson % (Auto) 8.5, Eos % (Auto) 2.3, Baso % (Auto) 0.8, Neut # (Auto) 5.1, Lymph # (Auto) 2.1, Williamson # (Auto) 0.7, Eos # (Auto) 0.2, Baso # (Auto) 0.1 11/23/18 05:40: Sodium 139, Potassium 4.3, Chloride 103, Carbon Dioxide 26, Anion Gap 14.3, BUN 7, Creatinine 0.75, Estimated Creat Clear 123, Estimated GFR 84, Est GFR ( Amer) 102, Glucose 93, Calcium 8.8 I & O for Last 24 hours: Intake & Output 11/20/18 11/21/18 11/22/18 11/23/18 11:59 11:59 11:59 11:59 Intake Total 1740 / 1740 4093 / 4093 2494 / 3094 2816 / 2816 Output Total 2600 / 2600 Balance -860 / -860 4093 / 4093 2494 / 3094 2816 / 2816 Weight 182 lb 2 oz 181 lb 4 oz 177 lb 1 oz Narrative: Alert and oriented. Appears in no distress. Lungs are clear. Abdomen is soft with mild diffuse tenderness. Bowel sounds are present Assessment and Plan (1) Acute pancreatitis Current visit: Yes Status: Acute Category: Medical Code(s): K85.90 - Acute pancreatitis without necrosis or infection, unspecified (2) Primary hypertriglyceridemia Current visit: Yes Status: Acute Category: Medical Code(s): E78.1 - Pure hyperglyceridemia (3) Abdominal pain Current visit: Yes Status: Acute Category: Medical Code(s): R10.9 - Unspecified abdominal pain (4) Hyponatremia Current visit: Yes Status: Resolved Category: Medical Code(s): E87.1 - Hypo-osmolality and hyponatremia (5) Hypercholesterolemia with hypertriglyceridemia Current visit: Yes Status: Acute Category: Medical Code(s): E78.2 - Mixed hyperlipidemia (6) Hematuria Current visit: Yes Status: Acute Category: Medical Code(s): R31.9 - Hematuria, unspecified (7) Hypokalemia Current visit: Yes Status: Resolved Category: Medical Code(s): E87.6 - Hypokalemia - Assessment and plan all Dx Assessment and Plan for all problems:: We will discontinue her IV fluids. Advance to a low-fat diet. If she can tolerate this, possibly discharge home tomorrow.
--- NOTE | 2018-11-24 08:18 | Progress Note ---
Internal Medicine - PN: Subj *Date: 11/24/18 *Time: 08:14 Interval history: Pain and nausea much improved. She is tolerating low fat diet. Had BM yesterday. Exam Vital signs and Labs for Last 24 Hours: Temp Pulse Resp BP Pulse Ox 98.1 F 76 16 139/78 95 11/24/18 04:00 11/24/18 04:00 11/24/18 04:00 11/24/18 04:00 11/24/18 04:00 I & O for Last 24 hours: Intake & Output 11/21/18 11/22/18 11/23/18 11/24/18 11:59 11:59 11:59 11:59 Intake Total 4093 / 4093 2494 / 3094 2816 / 2816 2059 / 0 Output Total 2099 / 2100 Balance 4093 / 4093 2494 / 3094 2816 / 2816 -40 / -40 Weight 181 lb 4 oz 177 lb 1 oz 172 lb 5 oz - Constitutional no acute distress - *Routine Respiratory Exam Present: CTA bilaterally - *Routine Abdominal Exam Present: soft, normoactive bowel sounds, tenderness (minimal). Absent: distended Assessment and Plan (1) Acute pancreatitis Current visit: Yes Status: Acute Category: Medical Code(s): K85.90 - Acute pancreatitis without necrosis or infection, unspecified (2) Primary hypertriglyceridemia Current visit: Yes Status: Acute Category: Medical Code(s): E78.1 - Pure hyperglyceridemia (3) Abdominal pain Current visit: Yes Status: Acute Category: Medical Code(s): R10.9 - Unspecified abdominal pain (4) Hyponatremia Current visit: Yes Status: Resolved Category: Medical Code(s): E87.1 - Hypo-osmolality and hyponatremia (5) Hypercholesterolemia with hypertriglyceridemia Current visit: Yes Status: Acute Category: Medical Code(s): E78.2 - Mixed hyperlipidemia (6) Hematuria Current visit: Yes Status: Acute Category: Medical Code(s): R31.9 - Hematuria, unspecified (7) Hypokalemia Current visit: Yes Status: Resolved Category: Medical Code(s): E87.6 - Hypokalemia (8) Pulmonary nodule Current visit: Yes Status: Acute Category: Medical Code(s): R91.1 - Solitary pulmonary nodule - Assessment and plan all Dx Assessment and Plan for all problems:: Stable for discharge. Instructed on low fat diet. She will RTO in 1 week. Discussed finding of pulmonary nodule on CT scan and recommend repeat CT in about 3 months.
--- NOTE | 2018-11-24 22:13 | Discharge Summary ---
General - General Admission date:: 11/16/18 <Nino Rose - 11/27/18 16:57> 11/16/18 <April Carmona - 11/24/18 22:18> Discharge date: 11/24/18 <April Carmona - 11/24/18 22:18> HPI HPI: Ms Almazan is a 43-year-old female with a history of depression and anxiety, and learning disability who for four days prior to admission had been in a camp where she ate large quantities of food for each meal. She stated she ate more than she had ever eaten. This included high fat foods and many carbs/sweets. Her bowels moved only a small amount in the last 4 days. She developed abdominal pain, bloating, and belching. With the gas discomfort, the pain did start to radiate up into her left chest. Thus she presented to [facility] emergency room for evaluation. With evaluation in the emergency room she received pain medicine, Zofran and Phenergan, and IV fluid bolus. She was felt to have a pancreatitis and was admitted for further evaluation and treatment. <April Carmona - 11/24/18 22:18> Hospital Course Hospital Course: The patient's chest x-ray showed nothing acute. Her abdominal CT showed a mild acute pancreatitis and an 11 mm left lower lobe nodule. Radiology recommended a 3-month chest CT follow-up. She was admitted and started on anti-emetics and IV fluids. She was kept n.p.o. A gallbladder ultrasound was ordered and she was given a Dulcolax suppository. The gallbladder ultrasound showed fatty liver with mild edema of the mid aspect of the pancreas. There were no gallstones. The patient's triglycerides were elevated at 4903. Her total cholesterol was 459. Her white blood cell count was slightly elevated. She was started on an insulin drip for her high triglycerides. She was started on clear liquids. Her IV fluids were changed to D5 half-normal saline. She continued to have abdominal pain requiring morphine. She also continued to require Zofran. She was only able to take minimal p.o. liquids. Her triglycerides did dramatically decrease with the insulin drip, therefore it was discontinued. She was started on fenofibrate and also potassi um supplementation for hypokalemia. Her potassium normalized and her white blood cell count improved. Her amylase and lipase returned to normal but she continued to have abdominal pain. A repeat CT scan was ordered and Dr. Lee was consulted. The CT scan showed a worsening of her acute pancreatitis. There were also developing bilateral pleural effusions and bilateral lower lobe consolidation on the left more so than the right. She did begin feeling slightly better. She had less pain and nausea and was able to tolerate some toast. She did have a urine culture which showed mixed organisms. She was seen by Dr. Lee who felt her pancreatitis was secondary to hypertriglyceridemia. He felt she would have a slightly more prolonged course. He also felt supportive measures with pain control should be continued. He only recommended an MRCP if the patient has a recurrent bout of pancreatitis. The patient did begin having a headache and she was given tramadol for this. She began feeling better with less abdominal pain and was able to tolerate a diet. She finally had a small bowel movement. Her IV fluids were discontinued and she was advanced to a low-fat diet. She tolerated her diet well and was stable to be discharged home. She will follow-up in the office in a week. <April Carmona - 11/24/18 22:18> Objective Vital signs: Temp Pulse Resp BP Pulse Ox 98.4 F 90 18 127/76 93 L 11/24/18 08:00 11/24/18 08:00 11/24/18 08:00 11/24/18 08:00 11/24/18 08:00 <RoseNino hairston - 11/27/18 16:57> Temp Pulse Resp BP Pulse Ox 98.4 F 90 18 127/76 93 L 11/24/18 08:00 11/24/18 08:00 11/24/18 08:00 11/24/18 08:00 11/24/18 08:00 <April Carmona - 11/24/18 22:18> Narrative: - Constitutional no acute distress - *Routine Respiratory Exam Present: CTA bilaterally - *Routine Abdominal Exam Present: soft, normoactive bowel sounds, tenderness (minimal). Absent: distended <April Carmona - 11/24/18 22:18> DS: Diagnosis - Discharge Diagnosis (1) Acute pancreatitis Status: Acute (2) Primary hypertriglyceridemia Status: Acute (3) Abdominal pain Status: Acute (4) Hyponatremia Status: Resolved (5) Hypercholesterolemia with hypertriglyceridemia Status: Acute (6) Hematuria Status: Acute (7) Hypokalemia Status: Resolved (8) Pulmonary nodule Status: Acute <April Carmona 11/24/18 22:04> (1) Acute pancreatitis Status: Acute (2) Primary hypertriglyceridemia Status: Acute (3) Abdominal pain Status: Acute (4) Hyponatremia Status: Resolved (5) Hypercholesterolemia with hypertriglyceridemia Status: Acute (6) Hematuria Status: Acute (7) Hypokalemia Status: Resolved (8) Pulmonary nodule Status: Acute <Nino Rose - 11/27/18 16:57> Discharge Plan - Patient Discharge Instructions ACTIVITY: Continue current activity <April Carmona 11/24/18 22:18> DIET: low fat, low cholesterol <April Carmona 11/24/18 22:18> Patient Instructions: Acute Pancreatitis, High Triglycerides, Cholesterol- lowering Diet, DI for Pancreatitis <Nino Rose - 11/27/18 16:57> Forms: <Nino Rose - 11/27/18 16:57> - Follow up Plan Follow up with: Nino Rose MD [Primary Care Provider] - 1 week <Nino Rose - 11/27/18 16:57> Disposition: Home, Self-Care <Nino Rose - 11/27/18 16:57> Home Medications: Home Medications Medication Instructions Recorded Confirmed Type Albuterol Sulfate [Proair Hfa 2 puffs IH QIDP PRN 11/16/18 11/17/18 History 90mcg/puff Inh] Beclomethasone Dipropionate [Qnasl] 2 spry NS DAILY PRN 11/17/18 11/17/18 History Benzonatate [Benzonatate 100mg 200 mg PO TID PRN 11/17/18 11/17/18 History cap] Carisoprodol [Soma 350mg tablet] 350 mg PO TIDP PRN 11/17/18 11/17/18 History Cetirizine HCl [Zyrtec] 10 mg PO DAILYP PRN 11/17/18 11/17/18 History Desog-E.estradiol/E.estradiol 1 tab PO DAILY 11/17/18 11/17/18 History [Azurette 28 Day Tablet] Meloxicam [Mobic 15 mg tab] 15 mg PO DAILY 11/17/18 11/17/18 History Montelukast Sodium [Singulair 10mg 10 mg PO PM PRN 11/17/18 11/17/18 History tablet] Olopatadine HCl [Pataday] 1 drp OP BIDP PRN 11/17/18 11/17/18 History SUMAtriptan succinate [Imitrex] 50 mg PO DIRECTED 11/17/18 11/17/18 History Tramadol HCl [Tramadol 50mg 50 mg PO TID PRN 11/17/18 11/17/18 History Tab] Fenofibrate,Micronized [Tricor 134 mg PO HS #30 cap 11/24/18 Rx 134mg] <Nino Rose - 11/27/18 16:57> Prescriptions/Medication Reconciliation: New Fenofibrate,Micronized [Tricor 134mg] 134 mg PO HS #30 cap Continued SUMAtriptan succinate [Imitrex] 50 mg PO DIRECTED Beclomethasone Dipropionate [Qnasl] 2 spry NS DAILY PRN PRN Reason: ALLERGY SYMPTOMS Benzonatate [Benzonatate 100mg cap] 200 mg PO TID PRN PRN Reason: Cough Cetirizine HCl [Zyrtec] 10 mg PO DAILYP PRN PRN Reason: ALLERGY Montelukast Sodium [Singulair 10mg tablet] 10 mg PO PM PRN PRN Reason: ALLERGY SYMPTOMS Olopatadine HCl [Pataday] 1 drp OP BIDP PRN PRN Reason: ALLERGY SYMPTOMS Meloxicam [Mobic 15 mg tab] 15 mg PO DAILY Tramadol HCl [Tramadol 50mg Tab] 50 mg PO TID PRN PRN Reason: Moderate Pain Albuterol Sulfate [Proair Hfa 90mcg/puff Inh] 2 puffs IH QIDP PRN PRN Reason: Shortness Of Breath Desog-E.estradiol/E.estradiol [Azurette 28 Day Tablet] 1 tab PO DAILY Carisoprodol [Soma 350mg tablet] 350 mg PO TIDP PRN PRN Reason: PAIN <Nino Rose - 11/27/18 16:57> - Additional Information Additional Information: Concur with plan for discharge as outlined above. <Nino Rose - 11/27/18 16:57>
== END 2018-11-24 09:34 | disposition home or self-care (01) | DRG 439 ==
LOC: ER 20:02 → 2ND 22:20 → ICU 11-18 12:16 → 2ND 11-21 13:15
PROVIDERS: ADMIT Family Medicine; ATTEND Family Medicine
CPT/HCPCS: 36415; 71020; 71046; 74176; 74178; 76705; 80048; 80053; 80061; 80076; 81001; 82150; 82962; 83690; 83735; 84484; 85025; 87086; 93005; 96365; 96375; 99284; J2405

== ENCOUNTER → 2019-02-25 08:14 | Outpatient (CLI) | payer OTHER, SELFPAY ==
[2019-02-25 09:14] LABS: Alanine Aminotransferase 29 U/L (12-78); Albumin Level 3.8 gm/dL (3.4-5.0); Albumin/Globulin Ratio 1.2 (1.1-1.8); Alkaline Phosphatase 53 U/L (46-116); Amylase 102 U/L (25-115); Anion Gap 14.6 mEq/L (5-15); Aspartate Amino Transferase 15 U/L (15-37); Bilirubin,Total 0.3 mg/dL (0.2-1.0); Blood Urea Nitrogen 15 mg/dL (7-18); Calcium 9.1 mg/dL (8.5-10.1); Carbon Dioxide 25 mmol/L (21.0-32.0); Chloride 107 mmol/L (98-107); Cholesterol 174 mg/dL (140-200); Creatinine,Serum 0.87 mg/dL (0.55-1.02); Estimated Glomerular Filt Rate 71 ml/min (>60); GFR (African American) 86 ML/MIN (>60); Globulin 3.3 gm/dl (1.3-3.2); Glucose 119 mg/dL (74-106); HDL Cholesterol 29 mg/dL (29-89); Lipase 278 u/L (73-393); Potassium 4.6 mmoL/L (3.5-5.1); Sodium 142 mmol/L (136-145); Total Protein,Serum 7.1 gm/dL (6.4-8.2)
[2019-02-25 09:16] LABS: Triglycerides 544 mg/dL (30-200)
== END ==
PROVIDERS: Visit Provider Family Medicine
DX: E78.2 Mixed hyperlipidemia (principal)
CPT/HCPCS: 36415; 80053; 80061; 82150; 83690

== ENCOUNTER → 2019-03-11 10:26 | Outpatient (CLI) | payer OTHER, SELFPAY ==
--- NOTE | 2019-03-11 10:28 | CT_ITS ---
PROCEDURE: CT CHEST WO/W CON CLINCAL INDICATION: PULMONARY NODULE COMPARISON: ABDPELWO CT abdomen pelvis wo con from 11/16/2018 CT ABDOMEN PELVIS WO CON from 03/10/2019 TECHNIQUE: IV Contrast: 75ml Optiray 350 Axial images obtained with sagittal and coronal reformats. All CT scans at the facility use one or more dose reduction, viz: automated exposure control, ma/kV adjustment per patient size (including targeted exams where dose is matched to indication, i.e. head), or iterative reconstruction technique. FINDINGS: No mediastinal or hilar mass or adenopathy. Mild thickened pericardium anteriorly. The main pulmonary artery/aorta ratio is greater than 1 which may be seen with pulmonary arterial hypertension. There are mild atelectatic changes in the lung bases. There is a noncalcified 4 mm nodule in the left upper lobe centrally nonspecific. 1 cm nodular opacity once again noted in the left lower lobe unchanged. This nodule does not appear to show significant enhancement. The Upper abdominal images show fatty liver. There has been interval development of peripancreatic edema as well as edema of the pancreas consistent with acute pancreatitis. There is thickening of the left anterior pararenal fascia.. IMPRESSION: 1. No change in the 1 cm left lower lobe nodule. Six-month follow-up recommended 2. Prominent main pulmonary artery which may be seen with pulmonary arterial hypertension 3. Acute pancreatitis Dictated by: Luc Connell MD 03/12/2019 06:37 Signed by: <Electronically signed by Luc Connell MD in [place]> 03/12/2019 06:37
== END ==
PROVIDERS: PCP Family Medicine; Visit Provider Family Medicine
DX: R91.1 Solitary pulmonary nodule (principal)
CPT/HCPCS: 71270; Q9967

== ENCOUNTER → 2019-08-26 13:33 | Outpatient (CLI) | payer OTHER, SELFPAY ==
[2019-08-26 15:23] LABS: Alanine Aminotransferase 62 U/L (9-52); Albumin/Globulin Ratio 1.1 (1.1-1.8); Alkaline Phosphatase 67 U/L (46-116); Anion Gap 16.2 mEq/L (5-15); Bilirubin,Total 0.4 mg/dL (0.2-1.0); Blood Urea Nitrogen 15 mg/dL (7-18); Calcium 9.4 mg/dL (8.5-10.1); Carbon Dioxide 25 mmol/L (21.0-32.0); Chloride 105 mmol/L (98-107); Chol/HDL Ratio 6.7 (1-3.5); Cholesterol 209 mg/dL (140-200); Creatinine,Serum 0.68 mg/dL (0.55-1.02); Estimated Glomerular Filt Rate 94 ml/min (>60); GFR (African American) 114 ML/MIN (>60); Globulin 3.6 gm/dl (1.3-3.2); HDL Cholesterol 31 mg/dL (29-89); Sodium 142 mmol/L (137-145); Total Protein,Serum 7.6 g/dL (6.4-8.2)
[2019-08-26 15:34] LABS: Glucose 125 mg/dL (74-106)
[2019-08-26 15:37] LABS: Aspartate Amino Transferase 60 U/L (15-37); Potassium 4.2 mmoL/L (3.5-5.1); Triglycerides 909 mg/dL (30-200)
== END ==
PROVIDERS: Visit Provider Family Medicine
DX: E78.1 Pure hyperglyceridemia (principal)
CPT/HCPCS: 36415; 80053; 80061

== ENCOUNTER → 2019-11-25 11:29 | Outpatient (CLI) | payer OTHER, SELFPAY ==
[2019-11-25 12:14] LABS: Chloride 101 mmol/L (98-107)
[2019-11-25 12:15] LABS: Potassium 4.5 mmoL/L (3.5-5.1); Sodium 135 mmol/L (136-145)
[2019-11-25 12:17] LABS: Alanine Aminotransferase 42 U/L (12-78); Alkaline Phosphatase 67 U/L (38-126); Anion Gap 14.5 mEq/L (5-15); Aspartate Amino Transferase 42 U/L (14-36); Bilirubin,Total 0.7 mg/dl (0.2-1.3); Blood Urea Nitrogen 14 mg/dl (7-17); Carbon Dioxide 24 mmol/L (22.0-30.0); Estimated Glomerular Filt Rate 109 ml/min (>60); GFR (African American) 131 ML/MIN (>60)
[2019-11-25 12:18] LABS: Albumin Level 4.4 g/dl (3.5-5.0); Albumin/Globulin Ratio 1.6 (1.1-1.8); Calcium 10.1 mg/dl (8.4-10.2); Chol/HDL Ratio 2.8 (1-3.5); Cholesterol 124 mg/dl (140-200); Globulin 2.7 g/dL (1.3-3.2); Glucose 154 mg/dl (74-100); HDL Cholesterol 45 mg/dl (40-60); Total Protein,Serum 7.1 g/dl (6.3-8.2); Triglycerides 400 mg/dl (30-150)
[2019-11-25 12:29] LABS: Direct LDL Cholesterol 56.04 mg/dL (100-129)
== END ==
PROVIDERS: Visit Provider Family Medicine
DX: E78.5 Hyperlipidemia, unspecified (principal)
CPT/HCPCS: 36415; 80053; 80061

== ENCOUNTER → 2020-05-25 14:52 | Outpatient (CLI) | payer OTHER, SELFPAY ==
[2020-05-25 16:18] LABS: Chloride 103 mmol/L (98-107); Sodium 140 mmol/L (136-145)
[2020-05-25 16:21] LABS: Alanine Aminotransferase 78 U/L (12-78); Albumin Level 4.3 g/dl (3.5-5.0); Albumin/Globulin Ratio 1.5 (1.1-1.8); Alkaline Phosphatase 62 U/L (38-126); Aspartate Amino Transferase 106 U/L (14-36); Bilirubin,Total 0.4 mg/dl (0.2-1.3); Blood Urea Nitrogen 18 mg/dl (7-17); Calcium 9.7 mg/dl (8.4-10.2); Carbon Dioxide 27 mmol/L (22.0-30.0); Chol/HDL Ratio 4.9 (1-3.5); Cholesterol 162 mg/dl (140-200); Estimated Glomerular Filt Rate 90 ml/min (>60); GFR (African American) 109 ML/MIN (>60); Globulin 2.9 g/dL (1.3-3.2); Glucose 153 mg/dl (74-100); HDL Cholesterol 33 mg/dl (40-60); Total Protein,Serum 7.2 g/dl (6.3-8.2)
[2020-05-25 16:32] LABS: Direct LDL Cholesterol 40.61 mg/dL (100-129)
[2020-05-25 16:36] LABS: Triglycerides 1018 mg/dl (30-150)
[2020-05-25 18:01] LABS: Hemoglobin A1C 6.5 % (4.0-6.0)
== END ==
PROVIDERS: Visit Provider Family Medicine
DX: E78.5 Hyperlipidemia, unspecified (principal); Z13.1 Encounter for screening for diabetes mellitus; Z79.899 Other long term (current) drug therapy
CPT/HCPCS: 36415; 80053; 80061; 83036

== ENCOUNTER → 2020-08-24 11:09 | Outpatient (CLI) | payer OTHER, SELFPAY ==
[2020-08-24 12:17] LABS: Hemoglobin A1C 6.6 % (4.0-6.0)
[2020-08-24 12:57] LABS: Alanine Aminotransferase 60 U/L (12-78); Albumin Level 4.5 g/dl (3.5-5.0); Albumin/Globulin Ratio 1.5 (1.1-1.8); Alkaline Phosphatase 73 U/L (38-126); Anion Gap 12.7 mEq/L (5-15); Aspartate Amino Transferase 79 U/L (14-36); Bilirubin,Total 0.6 mg/dl (0.2-1.3); Blood Urea Nitrogen 13 mg/dl (7-17); Calcium 10.5 mg/dl (8.4-10.2); Carbon Dioxide 28 mmol/L (22.0-30.0); Chloride 102 mmol/L (98-107); Chol/HDL Ratio 3.6 (1-3.5); Cholesterol 143 mg/dl (140-200); Estimated Glomerular Filt Rate 108 ml/min (>60); GFR (African American) 131 ML/MIN (>60); Glucose 96 mg/dl (74-100); HDL Cholesterol 40 mg/dl (40-60); Potassium 4.7 mmoL/L (3.5-5.1); Sodium 138 mmol/L (136-145); Total Protein,Serum 7.5 g/dl (6.3-8.2); Triglycerides 301 mg/dl (30-150); VLDL Cholesterol 60 mg/dL (0-40)
[2020-08-24 13:08] LABS: Direct LDL Cholesterol 52.45 mg/dL (100-129)
== END ==
PROVIDERS: Visit Provider Family Medicine
DX: E78.1 Pure hyperglyceridemia (principal); E87.6 Hypokalemia; Z13.1 Encounter for screening for diabetes mellitus
CPT/HCPCS: 36415; 80053; 80061; 83036

== ENCOUNTER 2020-10-22 12:14 | Emergency (ER) | payer OTHER, SELFPAY ==
[2020-10-22 12:36] VITALS: BP 136/88; PULSE 96; RESP 14; TEMP 37.2; O2SAT 99; BMI 31.7
[2020-10-22 12:50] LABS: UTC Strep Screen (Rapid) Negative (Negative)
--- NOTE | 2020-10-22 12:52 | HMH.EDUTC ---
[facility] [place] Clinical Impression: Upper respiratory infection, viral Disposition: Home, Self-Care Condition on Discharge: Good Instructions: DI for Viral Upper Respiratory Infection -- Adult Additional Instructions: No sign of a bacterial infection. Likely viral. Viruses can take 7-14 days to run their course. Nasal saline and bulb syringe or nose Chapis to remove nasal drainage to help with nasal congestion. Hard to eat, drink, sleep with nasal congestion so important to keep this cleaned out. Monitor temp. Tylenol or Motrin as needed for pain or fever Encourage fluids, water, Gatorade, Powerade, Pedialyte if infant/toddler/child Warm salt water gargles Warm fluids Sore throat lozenges Sleep elevated Humidifier/vaporizer Your covid swab was sent to lab. call in 3-4 hours for results. Follow-up immediately for new or worsening symptoms or no noticeable improvement over the next 48-72 hours. Referrals: Nino Rose MD [Primary Care Provider] - Time of Disposition: 12:58 Medical Decision Making - Efrain Inquiry Pt receiving controlled substance: No Vital Signs: 10/22/20 12:36 Temperature 99 F Temperature Source Oral Pulse Rate [Right Brachial] 96 H Respiratory Rate 14 Blood Pressure [Right Arm] 136/88 Blood Pressure Mean [Right Arm] 104 Blood Pressure Source [Right Arm] Automatic Cuff Blood Pressure Position [Right Arm] Sitting 02 Sat by Pulse Oximetry 99 Oxygen Delivery Method Room Air - Lab Data Lab Results 10/22/20 12:37: Strep Scn Rapid Clinic Negative Orders (Tests/Meds): ORDERS Category Date Time Status Full Resp Panel w/COVID ([facility]) Routine Lab 10/22/20 12:30 Received Strep Screen Confirmation Stat Micro 10/22/20 12:37 Received [facility] [place] HPI - General Chief complaint: Urgent Treatment Center Stated complaint: cov test Time Seen by Provider: 10/22/20 12:53 Mode of Arrival: Ambulatory Source of Information: Patient Limitations: No Limitations Description of Symptoms (Recalled from Triage Doc. by RN): nausea, diarrhea, abdominal pain, SOA, fever HEENT Symptoms (Recalled from RN notes): Yes Resp Symptoms (Recalled from RN notes): Yes Skin Symptoms (Recalled from RN notes): No MS Symptoms (Recalled from RN notes): No Functional Status (Recalled from RN notes): n/a - History of Present Illness Provider Complaint: 45 yr old female presents with c/o nausea, diarrhea, abdominal pain, SOA, fever for 3 days. request covid test - Related Data Home Medications Medication Instructions Recorded Confirmed SUMAtriptan succinate [Imitrex] 50 mg PO DIRECTED 11/17/18 10/22/20 Icosapent Ethyl [Vascepa] 1 gm PO DAILY 03/10/19 10/22/20 albuterol sulfate 90 mcg/actuation 1 puff INHALATION Q6H PRN 06/25/19 10/22/20 aerosol inhaler levocetirizine 5 mg tablet 5 mg PO QPM PRN 06/25/19 10/22/20 montelukast 10 mg tablet 10 mg PO QPM 06/25/19 10/22/20 Allergies Allergy/AdvReac Type Severity Reaction Status Date / Time No Known Allergies Allergy Verified 10/22/20 12:50 - Worker's Comp Is this a Worker's Comp case?: No [facility] History - Hepatitis A Screen Drug use history?: No High risk sexual behaviors?: No History of sexually transmitted infection?: No Currently employed?: No Childcare worker?: No Do you have indoor plumbing?: Yes Do you have electricity?: Yes Attestation statement:: This patient has been screened for Hepatitis A risk factors. I have reviewed the patient's past medical history: Yes Medical History: Reports:: Anxiety, Depression Denies:: Diabetes Mellitus Type 1, Diabetes Mellitus Type 2, Internal Pacemaker Comment: allergies Laterality Cases: Bilateral: Tonsillectomy Other Surgeries: Yes: , Tubal Ligation, Other. No: Pacemaker Amputation: No Fractures: No Comment: Right wrist surgery x2 in 2000, bladder surgery 2009, urethral sling 2009, nose reconstruction in 2012 - Social History Smoking Status: Former smoker Tobacco Type:
[2020-10-22 12:53] LABS: Adenovirus,PCR Not Detected (NotDetected); Bordetella Pertussis Not Detected (NotDetected); Chlamydophila Pneumoniae, PCR Not Detected (NotDetected); Coronavirus 229E Not Detected (NotDetected); Coronavirus NL63 Not Detected (NotDetected); Coronavirus OC43 Not Detected (NotDetected); Coronovirus HKU1,PCR Not Detected (NotDetected); Human Metapneumovirus Not Detected (NotDetected); Influenza A, PCR Not Detected (NotDetected); Influenza AH1, 2009 Not Detected (NotDetected); Influenza AH1, PCR Not Detected (NotDetected); Influenza AH3,PCR Not Detected (NotDetected); Influenza B, PCR Not Detected (NotDetected); Mycoplasma Pneumoniae, PCR Not Detected (NotDetected); Parainfluenza 1, PCR Not Detected (NotDetected); Parainfluenza 2, PCR Not Detected (NotDetected); Parainfluenza 3, PCR Not Detected (NotDetected); Parainfluenza 4, PCR Not Detected (NotDetected); Respiratory Syncytial Virus Not Detected (NotDetected); Rhinovirus/Enterovirus Not Detected (NotDetected)
[2020-10-22 13:06] VITALS: BP 130/78; PULSE 80; RESP 14; TEMP 37.2; O2SAT 99
[2020-10-22 13:13] LABS: Basophils # 0.1 K/mm3 (0-0.2); Eosinophils % 0.3 % (0.1-12.0); Hematocrit 40.6 % (37.0-47.0); Hemoglobin 13.4 g/dL (12.2-16.2); Lymphocytes # 2.3 K/mm3 (0.7-4.5); Lymphocytes % 38.3 % (10-50); Mean Corpuscular HGB Conc 33.1 g/dL (31.8-35.4); Mean Corpuscular Hemoglobin 29.6 pg (27.0-31.2); Mean Corpuscular Volume 89.3 fl (81-99); Mean Platelet Volume 7.7 fl (7.4-10.4); Monocytes # 0.6 K/mm3 (0.1-1.0); Monocytes % 9.3 % (1.7-9.3); Neutrophils # 3.1 K/mm3 (1.8-7.8); Neutrophils % 51.2 % (37.0-80.0); Platelet Count 239 K/mm3 (142-424); Red Blood Count 4.55 M/mm3 (4.20-5.40); Red Cell Distribution Width 13.1 % (11.5-17.5); White Blood Count 6.1 K/mm3 (4.8-10.8)
[2020-10-22 15:31] LABS: Coronavirus 19, PCR Detected (NotDetected)
== END 2020-10-22 13:08 | disposition home or self-care (01) ==
PROVIDERS: Emergency Provider Nurse Practitioner Family; PCP Family Medicine
DX: U07.1 COVID-19 (principal); F41.8 Other specified anxiety disorders; Z79.899 Other long term (current) drug therapy; Z87.891 Personal history of nicotine dependence
CPT/HCPCS: 85025; 87581; 87633; 87798; 87880; 99202; G0463

== ENCOUNTER 2020-11-01 12:43 | Emergency (ER) | payer OTHER, SELFPAY ==
[2020-11-01 12:51] VITALS: BP 141/86; PULSE 103; RESP 16; O2SAT 92; BMI 48.9
--- NOTE | 2020-11-01 12:54 | XR_ITS ---
PROCEDURE: XR CHEST 2V CLINICAL HISTORY: COUGH COMPARISON: CR CXR2V XR chest 2V from 11/16/[address] CHEST WO/W CON from 03/11/2019 FINDINGS: The cardiomediastinal silhouette and pulmonary vascularity are within normal limits. The lungs are clear without infiltrates, suspicious nodules, or pleural effusions. No acute bony abnormalities. IMPRESSION: No acute findings. Dictated by: Dr. Manoj Keller MD 11/01/2020 13:15 Dr. Manoj Keller MD in [place] 11/01/2020 13:15
--- NOTE | 2020-11-01 13:16 | HMH.EDUTC ---
[facility] [place] Disposition Clinical Impression: Asthma exacerbation Qualifiers: Asthma severity: unspecified severity Asthma persistence: unspecified Qualified Code(s): J45.901 - Unspecified asthma with (acute) exacerbation Disposition: Home, Self-Care Condition on Discharge: Good Instructions: Asthma -- Adult, DI for Asthma -- Adult, Preventing the Spread of Coronavirus Discharge Instructions Additional Instructions: Drink plenty of fluids. Take tylenol for pain or fever. Return if you begin to have difficulty breathing. Follow up with your regular doctor. GO TO THE ER FOR ANY WORSENING SYMPTOMS The cough medication (promethazine dm) will make you drowsy, so don't drive or operate heavy machinery after taking it. Prescriptions: Promethazine/Dextromethorphan [Promethazine-Dm Syrup] 5 ml PO Q6HP PRN #240 syrup PRN Reason: Cough Transmission Status: Received by [facility] #[id number] predniSONE [Deltasone 10mg tablet] 10 mg PO DAILY 9 Days #21 tab Transmission Status: Received by [facility] #[id number] Azithromycin [Z-Kingston 250mg Tab*] 250 mg PO UD DOSE PK #6 tab Transmission Status: Received by [facility] #[id number] Referrals: Nino Rose MD [Primary Care Provider] - Forms: Work/School Release Time of Disposition: 13:37 Medical Decision Making - Medical Records Medical records reviewed: No: I reviewed the patient's medical records. - Efrain Inquiry Pt receiving controlled substance: No Vital Signs: 11/01/20 12:51 11/01/20 13:22 11/01/20 13:54 Temperature 98.4 F 98.4 F Temperature Source Tympanic Tympanic Pulse Rate 103 H Pulse Rate [Right Brachial] 103 H Respiratory Rate 16 16 Blood Pressure 141/86 H Blood Pressure [Right Arm] 141/86 H Blood Pressure Mean [Right Arm] 104 Blood Pressure Source Automatic Cuff Blood Pressure Source [Right Arm] Automatic Cuff Blood Pressure Position Sitting Blood Pressure Position [Right Arm] Sitting 02 Sat by Pulse Oximetry 92 L 97 Oxygen Delivery Method Room Air Room Air Room Air [facility] [place] HPI - General Stated complaint: cough, recovering from covid Time Seen by Provider: 11/01/20 13:16 Mode of Arrival: Ambulatory Source of Information: Patient Limitations: No Limitations Description of Symptoms (Recalled from Triage Doc. by RN): Recovering from Covid. had cough, tightness in chest, light headed HEENT Symptoms (Recalled from RN notes): Yes Resp Symptoms (Recalled from RN notes): Yes Skin Symptoms (Recalled from RN notes): No MS Symptoms (Recalled from RN notes): No Functional Status (Recalled from RN notes): wnl - History of Present Illness Provider Complaint: She was diagnosed with Covid-19 on 10/22. She states that she has a history of asthma. Since being diagnosed with covid, she has had a worsening cough. She has been taking tessalon perles with not much relief. - Related Data Home Medications Medication Instructions Recorded Confirmed SUMAtriptan succinate [Imitrex] 50 mg PO DIRECTED 11/17/18 10/22/20 Icosapent Ethyl [Vascepa] 1 gm PO DAILY 03/10/19 10/22/20 albuterol sulfate 90 mcg/actuation 1 puff INHALATION Q6H PRN 06/25/19 10/22/20 aerosol inhaler levocetirizine 5 mg tablet 5 mg PO QPM PRN 06/25/19 10/22/20 montelukast 10 mg tablet 10 mg PO QPM 06/25/19 10/22/20 Previous Rx's Medication Instructions Recorded Azithromycin [Z-Kingston 250mg Tab*] 250 mg PO UD DOSE PK #6 tab 11/01/20 Promethazine/Dextromethorphan 5 ml PO Q6HP PRN #240 syrup 11/01/20 [Promethazine-Dm Syrup] predniSONE [Deltasone 10mg tablet] 10 mg PO DAILY 9 Days #21 tab 11/01/20 Allergies Allergy/AdvReac Type Severity Reaction Status Date / Time No Known Allergies Allergy Verified 11/01/20 12:50 - Worker's Comp Is this a Worker's Comp case?: No [facility] History - Hepatitis A Screen Drug use history?: No High risk sexual behaviors?: No History of sexually transmitted infection?: No Currently emplo
[2020-11-01 13:22] VITALS: TEMP 36.9; O2SAT 97
[2020-11-01 13:54] VITALS: BP 141/86; PULSE 103; RESP 16; TEMP 36.9; O2SAT 97
== END 2020-11-01 13:54 | disposition home or self-care (01) ==
PROVIDERS: Emergency Provider Nurse Practitioner Family; PCP Family Medicine
DX: J45.901 Unspecified asthma with (acute) exacerbation (principal); U07.1 COVID-19; F41.8 Other specified anxiety disorders; Z79.899 Other long term (current) drug therapy
CPT/HCPCS: 71046; 99202; G0463

== ENCOUNTER → 2021-01-10 08:03 | Outpatient (CLI) | payer OTHER, SELFPAY ==
--- NOTE | 2021-01-10 08:13 | US_ITS ---
PROCEDURE: US LIVER CLINICAL INDICATION: ABN LIVER FUNCTION,HYPERIPIDEMIA COMPARISON: No exams were available for comparison FINDINGS: PANCREAS: Unremarkable. No obvious mass or abnormal fluid collection. No ductal dilatation LIVER: Diffuse increased echogenicity of the liver with poor through transmission of sound consistent with hepatic steatosis. No focal liver lesion demonstrated. There is appropriate direction of blood flow within non dilated portal vein. RIGHT KIDNEY: Unremarkable. Normal size and echogenicity. No hydronephrosis GALLBLADDER: No gallstones, gallbladder wall thickening, pericholecystic fluid, or biliary dilatation. IMPRESSION: Fatty liver otherwise negative Dictated by: Luc Connell MD 01/10/2021 15:57 Luc Connell MD in [place] 01/10/2021 15:57
== END ==
PROVIDERS: PCP Family Medicine; Visit Provider Family Medicine
DX: R94.5 Abnormal results of liver function studies (principal); E78.2 Mixed hyperlipidemia; E66.9 Obesity, unspecified; Z68.30 Body mass index [BMI] 30.0-30.9, adult
CPT/HCPCS: 76705

== ENCOUNTER → 2021-01-20 06:19 | Outpatient (CLI) | payer OTHER, SELFPAY ==
--- NOTE | 2021-01-20 06:43 | CT_ITS ---
PROCEDURE: CT CHEST WO CON CLINICAL INDICATION: LUNG NODULE/ABN IMAGE COMPARISON: CT ABDPELWO CT abdomen pelvis wo con from 11/16/[address] CHEST WO/W CON from 03/11/2019 TECHNIQUE: Axial images obtained with sagittal and coronal reformats. All CT scans at the facility use one or more dose reduction, viz: automated exposure control, ma/kV adjustment per patient size (including targeted exams where dose is matched to indication, i.e. head), or iterative reconstruction technique. FINDINGS: HEART AND MEDIASTINAL STRUCTURES: No mediastinal or hilar mass or adenopathy. There is minimal coronary artery calcification. There remains mild prominence of the main pulmonary artery LUNGS AND PLEURAL SPACES: 9 mm noncalcified nodules present in the left lung base not significantly changed. No new nodules are evident. BONY STRUCTURES: No acute bony abnormalities apparent. UPPER ABDOMEN: Fatty liver ADDITIONAL FINDINGS: No other significant abnormalities. IMPRESSION: No change left lower lobe nodule. No new nodules apparent. Dictated by: uLc Connell MD 01/20/2021 11:25 Luc Connell MD in [facility] 01/20/2021 11:25
--- NOTE | 2021-01-20 11:16 | XR_ITS ---
PROCEDURE: XR SHOULDER LT MIN 2V CLINICAL INDICATION: SPRAIN OF LT SHOULDER,ROTATOR CUFF SYNDROME COMPARISON: No exams were available for comparison FINDINGS: No fracture or dislocation. No lytic or blastic change. There is normal mineralization. The joint spaces are well-preserved. No significant degenerative/arthritic changes. No erosive changes evident. Other findings:None. IMPRESSION: No acute findings. Dictated by: Luc Connell MD 01/20/2021 11:55 Luc Connell MD in [place] 01/20/2021 11:55
== END ==
PROVIDERS: PCP Family Medicine; Visit Provider Family Medicine
DX: R91.1 Solitary pulmonary nodule (principal); S43.52XA Sprain of left acromioclavicular joint, initial encounter; M75.102 Unspecified rotator cuff tear or rupture of left shoulder, not specified as traumatic
CPT/HCPCS: 71250; 73030

== ENCOUNTER 2021-04-09 11:01 | Emergency (ER) | payer OTHER, SELFPAY ==
[2021-04-09 12:00] VITALS: BP 121/81; PULSE 94; RESP 20; TEMP 36.9; O2SAT 98; BMI 30.4
--- NOTE | 2021-04-09 12:09 | HMH.EDUTC ---
[place] Disposition Clinical Impression: Seasonal allergies Conjunctivitis Qualifiers: Conjunctivitis type: unspecified Laterality: bilateral Qualified Code(s): H10.9 - Unspecified conjunctivitis Disposition: Home, Self-Care Condition on Discharge: Good Instructions: Conjunctivitis, Allergic Rhinitis Additional Instructions: Avoid contact with the offending substance (poison lorenza). Don't start the oral steroids until tomorrow, since you had the shot here today. Watch your blood sugars closely while you are on the steroids. Follow your diabetic diet closely while you are on them also. Follow up with your regular doctor. GO TO THE ER FOR ANY WORSENING SYMPTOMS OR CONCERNS Prescriptions: predniSONE [Prednisone 20mg Tab] 20 mg PO BID 4 Days #8 tab Transmission Status: Received by [facility] #[id number] Moxifloxacin HCl [Vigamox] 1 drp EYE-BOTH TID 7 Days #3 ml Transmission Status: Received by [facility] #[id number] Referrals: Cruz Matos MD [Primary Care Provider] - Time of Disposition: 12:35 Medical Decision Making - Medical Records Medical records reviewed: No: I reviewed the patient's medical records. - Efrain Inquiry Pt receiving controlled substance: No Vital Signs: 04/09/21 12:00 04/09/21 12:38 Temperature 98.4 F 98.4 F Temperature Source Oral Pulse Rate 94 H Pulse Rate [Right Brachial] 94 H Respiratory Rate 20 20 Blood Pressure 121/81 Blood Pressure [Right Arm] 121/81 Blood Pressure Mean [Right Arm] 94 Blood Pressure Source [Right Arm] Automatic Cuff Blood Pressure Position [Right Arm] Sitting 02 Sat by Pulse Oximetry 98 Oxygen Delivery Method Room Air Orders (Tests/Meds): ED MEDICATIONS Discontinued Medications Generic Name Dose Route Start Last Admin Trade Name Freq PRN Reason Stop Dose Admin Dexamethasone Sodium Phosphate 4 mg 04/09/21 12:29 04/09/21 12:33 Dexamethasone 4mg/Ml 1ml Vial IM 04/09/21 12:30 4 mg ONCE ONE Administration [place] HPI - General Stated complaint: allergies,eyes swollen Time Seen by Provider: 04/09/21 12:10 - History of Present Illness Provider Complaint: She has a history of significant enviromental allergies. She states that for the past week she has had much worse allergy symptoms than her usual. She saw her pcp and she was started on another antihistamine, but she states that so far it hasn't helped. She is having bilateral eye itching and irritation, runny nose and sinus pressure. She denies any fever or chills. - Related Data Home Medications Medication Instructions Recorded Confirmed SUMAtriptan succinate [Imitrex] 50 mg PO DIRECTED 11/17/18 10/22/20 Icosapent Ethyl [Vascepa] 1 gm PO DAILY 03/10/19 10/22/20 albuterol sulfate 90 mcg/actuation 1 puff INHALATION Q6H PRN 06/25/19 10/22/20 aerosol inhaler levocetirizine 5 mg tablet 5 mg PO QPM PRN 06/25/19 10/22/20 montelukast 10 mg tablet 10 mg PO QPM 06/25/19 10/22/20 Previous Rx's Medication Instructions Recorded Azithromycin [Z-[place] 250mg Tab*] 250 mg PO UD DOSE PK #6 tab 11/01/20 Promethazine/Dextromethorphan 5 ml PO Q6HP PRN #240 syrup 11/01/20 [Promethazine-Dm Syrup] predniSONE [Deltasone 10mg tablet] 10 mg PO DAILY 9 Days #21 tab 11/01/20 Moxifloxacin HCl [Vigamox] 1 drp EYE-BOTH TID 7 Days #3 ml 04/09/21 predniSONE [Prednisone 20mg 20 mg PO BID 4 Days #8 tab 04/09/21 Tab] Allergies Allergy/AdvReac Type Severity Reaction Status Date / Time No Known Allergies Allergy Verified 11/01/20 12:50 [facility] History - Hepatitis A Screen Attestation statement:: This patient has been screened for Hepatitis A risk factors. I have reviewed the patient's past medical history: Yes Medical History: Reports:: Anxiety, Depression Denies:: Diabetes Mellitus Type 1, Diabetes Mellitus Type 2, Internal Pacemaker Comment: allergies Laterality Cases: Bilateral: Tonsillectomy Other Surgeries: Yes: , Tubal L
[2021-04-09 12:38] VITALS: BP 121/81; PULSE 94; RESP 20; TEMP 36.9; O2SAT 98
== END 2021-04-09 12:41 | disposition home or self-care (01) ==
PROVIDERS: Emergency Provider Nurse Practitioner Family; PCP Family Medicine
DX: J30.89 Other allergic rhinitis (principal); F41.8 Other specified anxiety disorders; Z87.891 Personal history of nicotine dependence; Z79.899 Other long term (current) drug therapy
CPT/HCPCS: 96372; 99202; G0463

== ENCOUNTER 2021-04-19 14:39 | Emergency (ER) | payer OTHER, SELFPAY ==
[2021-04-19 15:00] VITALS: BP 117/81; PULSE 89; RESP 16; TEMP 37.1; O2SAT 99; BMI 29.9
--- NOTE | 2021-04-19 15:26 | HMH.EDUTC ---
[facility] [place] Clinical Impression: Allergic symptoms Qualifiers: Encounter type: initial encounter Qualified Code(s): T78.40XA - Allergy, unspecified, initial encounter Disposition: Home, Self-Care Condition on Discharge: Good Instructions: Hives, DI for Hives, Methylprednisolone Additional Instructions: Over the counter Benadryl may help with itching and irritation Over the counter calmine lotion may help to soothe and calm the skin Follow up with Dr Camarena as scheduled next week Follow up with your Family Doctor Look around and make sure that nothing has changed that could be causing these flare ups Start oral steriods tomorrow Prescriptions: methylPREDNISolone [Medrol 4mg tab] 4 mg PO DIRECTED #21 tab Transmission Status: Pending to [facility] #[id number] Referrals: Cruz Matos MD [Primary Care Provider] - As needed Time of Disposition: 15:53 Medical Decision Making - Efrain Inquiry Pt receiving controlled substance: No Efrain was queried for this patient: No Vital Signs: 04/19/21 15:00 04/19/21 15:42 Temperature 98.7 F 98.7 F Temperature Source Oral Pulse Rate 89 Pulse Rate [Right Brachial] 89 Respiratory Rate 16 16 Blood Pressure 117/81 Blood Pressure [Right Arm] 117/81 Blood Pressure Mean [Right Arm] 93 Blood Pressure Source [Right Arm] Automatic Cuff Blood Pressure Position [Right Arm] Sitting 02 Sat by Pulse Oximetry 99 Oxygen Delivery Method Room Air Orders (Tests/Meds): ED MEDICATIONS Discontinued Medications Generic Name Dose Route Start Last Admin Trade Name Freq PRN Reason Stop Dose Admin Methylprednisolone Sodium Succinate 125 mg 04/19/21 15:33 04/19/21 15:40 Methylprednisolone Sod Succ 125mg Vial IM 04/19/21 15:34 125 mg ONCE ONE Administration [facility] [place] HPI - General Stated complaint: allergies Time Seen by Provider: 04/19/21 15:27 Mode of Arrival: Ambulatory Source of Information: Patient Limitations: No Limitations Description of Symptoms (Recalled from Triage Doc. by RN): PATIENT C/O SWOLLEN/RED EYES AND THROAT TIGHTNESS HEENT Symptoms (Recalled from RN notes): Yes Resp Symptoms (Recalled from RN notes): No Skin Symptoms (Recalled from RN notes): No MS Symptoms (Recalled from RN notes): No Functional Status (Recalled from RN notes): WNL - History of Present Illness Provider Complaint: Patient states she has been having episodes of having swelling in both eyes redness and welps on her face for about the last month States that she was seen and given steriods a couple weeks ago and it helped but this morning she woke up and her eyes was swollen again and she had the red welps again on her face and her throat felt irritated so she came back in - Related Data Home Medications Medication Instructions Recorded Confirmed SUMAtriptan succinate [Imitrex] 50 mg PO DIRECTED 11/17/18 10/22/20 Icosapent Ethyl [Vascepa] 1 gm PO DAILY 03/10/19 10/22/20 albuterol sulfate 90 mcg/actuation 1 puff INHALATION Q6H PRN 06/25/19 10/22/20 aerosol inhaler levocetirizine 5 mg tablet 5 mg PO QPM PRN 06/25/19 10/22/20 montelukast 10 mg tablet 10 mg PO QPM 06/25/19 10/22/20 Previous Rx's Medication Instructions Recorded Azithromycin [Z-[place] 250mg Tab*] 250 mg PO UD DOSE PK #6 tab 11/01/20 Promethazine/Dextromethorphan 5 ml PO Q6HP PRN #240 syrup 11/01/20 [Promethazine-Dm Syrup] predniSONE [Deltasone 10mg tablet] 10 mg PO DAILY 9 Days #21 tab 11/01/20 Moxifloxacin HCl [Vigamox] 1 drp EYE-BOTH TID 7 Days #3 ml 04/09/21 predniSONE [Prednisone 20mg 20 mg PO BID 4 Days #8 tab 04/09/21 Tab] methylPREDNISolone [Medrol 4mg 4 mg PO DIRECTED #21 tab 04/19/21 tab] Allergies Allergy/AdvReac Type Severity Reaction Status Date / Time No Known Allergies Allergy Verified 11/01/20 12:50 - Worker's Comp Is this a Worker's Comp case?: No H History - Hepatitis A Screen Drug use history?: No High risk sexual behaviors?: No
[2021-04-19 15:42] VITALS: BP 117/81; PULSE 89; RESP 16; TEMP 37.1; O2SAT 99
== END 2021-04-19 16:05 | disposition home or self-care (01) ==
PROVIDERS: Emergency Provider Nurse Practitioner; PCP Family Medicine
DX: T78.40XA Allergy, unspecified, initial encounter (principal); F41.8 Other specified anxiety disorders
CPT/HCPCS: 96372; 99202; G0463

== ENCOUNTER 2021-06-10 18:53 | Emergency (ER) | payer BC, SELFPAY ==
[2021-06-10 18:55] VITALS: BP 147/87; PULSE 87; RESP 18; TEMP 36.7; O2SAT 98; BMI 29.2
--- NOTE | 2021-06-10 19:18 | HMH.EDUTC ---
[facility] [place] Impression: Allergic symptoms Qualifiers: Encounter type: initial encounter Qualified Code(s): T78.40XA - Allergy, unspecified, initial encounter Disposition: Home, Self-Care Condition on Discharge: Good Instructions: DI for Allergic Rhinitis, Allergic Rhinitis, Methylprednisolone Additional Instructions: Start oral steriods tomorrow Make sure to look around and see what may be causing your allergy Follow up with Dr Camarena as scheduled Follow up with your Family Doctor or eye doctor if no improvement or any worsening of symptoms Straight to ER if any life threatening symptoms Prescriptions: methylPREDNISolone [Medrol 4mg tab] 4 mg PO DIRECTED #21 tab Transmission Status: Received by [id number] Referrals: Cruz Matos MD [Primary Care Provider] - As needed Time of Disposition: 19:38 Medical Decision Making - Efrain Inquiry Pt receiving controlled substance: No Efrain was queried for this patient: No Vital Signs: 06/10/21 18:55 06/10/21 19:31 Temperature 98.1 F 98.1 F Temperature Source Oral Pulse Rate 87 Pulse Rate [Right Brachial] 87 Respiratory Rate 18 18 Blood Pressure 147/87 H Blood Pressure [Right Arm] 147/87 H Blood Pressure Mean [Right Arm] 107 Blood Pressure Source [Right Arm] Automatic Cuff Blood Pressure Position [Right Arm] Sitting 02 Sat by Pulse Oximetry 98 Oxygen Delivery Method Room Air Orders (Tests/Meds): ED MEDICATIONS Discontinued Medications Generic Name Dose Route Start Last Admin Trade Name Freq PRN Reason Stop Dose Admin Methylprednisolone Sodium Succinate 125 mg 06/10/21 19:20 06/10/21 19:29 Methylprednisolone Sod Succ 125mg Vial IM 06/10/21 19:21 125 mg ONCE ONE Administration [facility] [place] - General Stated complaint: allergies Time Seen by Provider: 06/10/21 19:18 Mode of Arrival: Ambulatory Source of Information: Patient Limitations: No Limitations Description of Symptoms (Recalled from Triage Doc. by RN): PATIENT C/O ALLERGIES AND SWOLLEN EYES X 3 DAYS HEENT Symptoms (Recalled from RN notes): Yes Resp Symptoms (Recalled from RN notes): No Skin Symptoms (Recalled from RN notes): No MS Symptoms (Recalled from RN notes): No Functional Status (Recalled from RN notes): WNL - History of Present Illness Provider Complaint: Patient states that she has really bad allergies and she sees an allergy doctor but she got into something she is allergic too and it is making her eyes itch and rodríguez States that she has done this before and had to get steriod shot to help - Related Data Home Medications Medication Instructions Recorded Confirmed SUMAtriptan succinate [Imitrex] 50 mg PO DIRECTED 11/17/18 10/22/20 Icosapent Ethyl [Vascepa] 1 gm PO DAILY 03/10/19 10/22/20 albuterol sulfate 90 mcg/actuation 1 puff INHALATION Q6H PRN 06/25/19 10/22/20 aerosol inhaler levocetirizine 5 mg tablet 5 mg PO QPM PRN 06/25/19 10/22/20 montelukast 10 mg tablet 10 mg PO QPM 06/25/19 10/22/20 Previous Rx's Medication Instructions Recorded Azithromycin [Z-[place] 250mg Tab*] 250 mg PO UD DOSE PK #6 tab 11/01/20 Promethazine/Dextromethorphan 5 ml PO Q6HP PRN #240 syrup 11/01/20 [Promethazine-Dm Syrup] predniSONE [Deltasone 10mg tablet] 10 mg PO DAILY 9 Days #21 tab 11/01/20 Moxifloxacin HCl [Vigamox] 1 drp EYE-BOTH TID 7 Days #3 ml 04/09/21 predniSONE [Prednisone 20mg 20 mg PO BID 4 Days #8 tab 04/09/21 Tab] Fluticasone Propionate [Flonase 1 spr NS DAILY #1 each 04/19/21 50mcg nasal spray 16gm] methylPREDNISolone [Medrol 4mg 4 mg PO DIRECTED #21 tab 04/19/21 tab] methylPREDNISolone [Medrol 4mg 4 mg PO DIRECTED #21 tab 06/10/21 tab] Allergies Allergy/AdvReac Type Severity Reaction Status Date / Time No Known Allergies Allergy Verified 11/01/20 12:50 - Worker's Comp Is this a Worker's Comp case?: No H History - Hepatitis A Screen Drug use history?: No High risk sexual b
[2021-06-10 19:31] VITALS: BP 147/87; PULSE 87; RESP 18; TEMP 36.7; O2SAT 98
== END 2021-06-10 19:45 | disposition home or self-care (01) ==
PROVIDERS: Emergency Provider Nurse Practitioner; PCP Family Medicine
DX: T78.40XA Allergy, unspecified, initial encounter (principal); F41.8 Other specified anxiety disorders; Z87.891 Personal history of nicotine dependence
CPT/HCPCS: 96372; 99202; G0463

== ENCOUNTER 2021-08-04 11:09 | Emergency (ER) | payer BC, SELFPAY ==
[2021-08-04 12:00] VITALS: BP 126/95; PULSE 84; RESP 20; TEMP 36.7; O2SAT 99; BMI 29.7
--- NOTE | 2021-08-04 12:39 | HMH.EDUTC ---
[facility] [place] Disposition Clinical Impression: Swollen lymph nodes URI (upper respiratory infection) Qualifiers: URI type: unspecified URI Qualified Code(s): J06.9 - Acute upper respiratory infection, unspecified Disposition: Home, Self-Care Condition on Discharge: Good Instructions: Sore Throat, Amoxicillin and Clavulanic Acid Additional Instructions: Take medication as prescribe FOllow up with Family Doctor and OBGYN for further evaluation and testing Return i if needed Straight to ER if any life threatening symptoms Prescriptions: Amoxicillin/Potassium Clav [Augmentin 875-125 Tablet] 1 tab PO Q12H 7 Days #14 tab Transmission Status: Pending to [id number] Referrals: Cruz Matos MD [Primary Care Provider] - As needed Time of Disposition: 12:43 Medical Decision Making - Efrain Inquiry Pt receiving controlled substance: No Efrain was queried for this patient: No Vital Signs: 08/04/21 12:00 08/04/21 12:45 Temperature 98.0 F 98.0 F Temperature Source Oral Pulse Rate 84 Pulse Rate [Right Brachial] 84 Respiratory Rate 20 20 Blood Pressure 126/95 H Blood Pressure [Right Arm] 126/95 H Blood Pressure Mean [Right Arm] 105 Blood Pressure Source [Right Arm] Automatic Cuff Blood Pressure Position [Right Arm] Sitting 02 Sat by Pulse Oximetry 99 Oxygen Delivery Method Room Air [facility] [place] HPI - General Stated complaint: glands swollen Time Seen by Provider: 08/04/21 12:39 Mode of Arrival: Ambulatory Source of Information: Patient Limitations: No Limitations Description of Symptoms (Recalled from Triage Doc. by RN): PATIENT C/O SORE THROAT AND TENDERNESS TO NECK AND BREASTS X 2 WEEKS HEENT Symptoms (Recalled from RN notes): Yes Resp Symptoms (Recalled from RN notes): No Skin Symptoms (Recalled from RN notes): No MS Symptoms (Recalled from RN notes): No Functional Status (Recalled from RN notes): WNL - History of Present Illness Provider Complaint: Patient states that she has been having sore throat, swelling in her glands and tenderness in her breast States that she did have some leakage from her breast a while back and her PCP give her antibiotics for it but doesnt think it has cleared it up States that her lymph nodes are still swolllen and tender - Related Data Home Medications Medication Instructions Recorded Confirmed SUMAtriptan succinate [Imitrex] 50 mg PO DIRECTED 11/17/18 10/22/20 Icosapent Ethyl [Vascepa] 1 gm PO DAILY 03/10/19 10/22/20 albuterol sulfate 90 mcg/actuation 1 puff INHALATION Q6H PRN 06/25/19 10/22/20 aerosol inhaler levocetirizine 5 mg tablet 5 mg PO QPM PRN 06/25/19 10/22/20 montelukast 10 mg tablet 10 mg PO QPM 06/25/19 10/22/20 Previous Rx's Medication Instructions Recorded Azithromycin [Z-[place] 250mg Tab*] 250 mg PO UD DOSE PK #6 tab 11/01/20 Promethazine/Dextromethorphan 5 ml PO Q6HP PRN #240 syrup 11/01/20 [Promethazine-Dm Syrup] predniSONE [Deltasone 10mg tablet] 10 mg PO DAILY 9 Days #21 tab 11/01/20 Moxifloxacin HCl [Vigamox] 1 drp EYE-BOTH TID 7 Days #3 ml 04/09/21 predniSONE [Prednisone 20mg 20 mg PO BID 4 Days #8 tab 04/09/21 Tab] Fluticasone Propionate [Flonase 1 spr NS DAILY #1 each 04/19/21 50mcg nasal spray 16gm] methylPREDNISolone [Medrol 4mg 4 mg PO DIRECTED #21 tab 04/19/21 tab] methylPREDNISolone [Medrol 4mg 4 mg PO DIRECTED #21 tab 06/10/21 tab] Amoxicillin/Potassium Clav 1 tab PO Q12H 7 Days #14 tab 08/04/21 [Augmentin 875-125 Tablet] Allergies Allergy/AdvReac Type Severity Reaction Status Date / Time No Known Allergies Allergy Verified 11/01/20 12:50 - Worker's Comp Is this a Worker's Comp case?: No [facility] History - Hepatitis A Screen Drug use history?: No High risk sexual behaviors?: No History of sexually transmitted infection?: No Currently employed?: No Childcare worker?: No Do you have indoor plumbing?: Yes Do you have electricity?: Yes Attestation statement:: This patient has
[2021-08-04 12:45] VITALS: BP 126/95; PULSE 84; RESP 20; TEMP 36.7; O2SAT 99
== END 2021-08-04 12:51 | disposition home or self-care (01) ==
PROVIDERS: Emergency Provider Nurse Practitioner; PCP Family Medicine
DX: R59.9 Enlarged lymph nodes, unspecified (principal); J06.9 Acute upper respiratory infection, unspecified; F41.8 Other specified anxiety disorders; E11.9 Type 2 diabetes mellitus without complications
CPT/HCPCS: 99202; G0463

== ENCOUNTER 2022-01-02 16:50 | Emergency (ER) | payer OTHER, SELFPAY ==
[2022-01-02 17:05] VITALS: BP 136/87; PULSE 95; RESP 19; TEMP 36.4; O2SAT 97; BMI 29.8
[2022-01-02 17:21] LABS: Adenovirus,PCR Not Detected (NotDetected); Bordetella Pertussis Not Detected (NotDetected); Chlamydophila Pneumoniae, PCR Not Detected (NotDetected); Coronavirus 19, PCR Not Detected (NotDetected); Coronavirus 229E Not Detected (NotDetected); Coronavirus NL63 Not Detected (NotDetected); Coronavirus OC43 Not Detected (NotDetected); Coronovirus HKU1,PCR Not Detected (NotDetected); Human Metapneumovirus Not Detected (NotDetected); Influenza A, PCR Not Detected (NotDetected); Influenza AH1, 2009 Not Detected (NotDetected); Influenza AH1, PCR Not Detected (NotDetected); Influenza AH3,PCR Not Detected (NotDetected); Influenza B, PCR Not Detected (NotDetected); Mycoplasma Pneumoniae, PCR Not Detected (NotDetected); Parainfluenza 1, PCR Not Detected (NotDetected); Parainfluenza 2, PCR Not Detected (NotDetected); Parainfluenza 3, PCR Not Detected (NotDetected); Parainfluenza 4, PCR Not Detected (NotDetected); Respiratory Syncytial Virus Not Detected (NotDetected); Rhinovirus/Enterovirus Not Detected (NotDetected)
[2022-01-02 17:35] LABS: Strep Scrn Group A (Rapid) Negative (Negative)
--- NOTE | 2022-01-02 17:57 | HMH.EDUTC ---
[facility] – [place] Disposition Clinical Impression: Otitis media Qualifiers: Otitis media type: unspecified Laterality: right Qualified Code(s): H66.91 - Otitis media, unspecified, right ear Disposition: Home, Self-Care Condition on Discharge: Good Instructions: Middle Ear Infection, Middle Ear Infections (Alternative Therapy), Amoxicillin Additional Instructions: *Monitor Temp, Over the counter Motrin or Tylenol as directed/as needed Tylenol every 4 hours and Motrin every 6 hours (as long as your family doctor has told you that you can take it) for fever or pain. and straight to ER if unable to lower temp less than 101.0 after medication given *Warm salt water gargles may help to soothe the throat *Throat Lozenges *Warm fluids like tea with honey may help to soothe the throat *Sleep elevated *Humidifier/Vaporizer Your throat swab was sent for culture. Those results are typically sent to your primary care. Be sure to follow up in 2-3 days with your family doctor/primary care physician if no improvement so they can review those result and treat if necessary. If you don?t have a primary care doctor, I recommend you get one but in the mean time, you will have to return to a walk in clinic Follow up IMMEDIATELY for new or worsening symptoms or no Noticeable improvement over the next 48-72 hours. 911 for difficulty breathing or swallowing You were tested for today for COVID19 your test result should be back in the next 24-48 hours, you may check your results on the [facility] My Health Portal Make sure to take your Vitamins Vit. C Vit D and Zinc if you can take them Prescriptions: Amoxicillin [Amoxicillin 875MG Tab] 875 mg PO Q12H #20 tab Transmission Status: Pending to [id number] Referrals: Lexi Murrell APRN [Primary Care Provider] - As needed Time of Disposition: 18:00 Medical Decision Making - Efrain Inquiry Pt receiving controlled substance: No Efrain was queried for this patient: No Vital Signs: 01/02/22 17:05 Temperature 97.5 F L Temperature Source Oral Pulse Rate [Left Brachial] 95 H Respiratory Rate 19 Blood Pressure [Left Arm] 136/87 Blood Pressure Mean [Left Arm] 103 Blood Pressure Source [Left Arm] Automatic Cuff Blood Pressure Position [Left Arm] Sitting 02 Sat by Pulse Oximetry 97 Oxygen Delivery Method Room Air - Lab Data Lab results reviewed: Yes: I reviewed the patient's lab results. Lab Results 01/02/22 17:09: Group A Strep Rapid Negative Orders (Tests/Meds): ORDERS Category Date Time Status Full Resp Panel w/COVID ([facility]) Routine Lab 01/02/22 17:09 Received Strep Screen Confirmation Stat Micro 01/02/22 17:09 Received [facility] UTC HPI - General Stated complaint: sore throat Time Seen by Provider: 01/02/22 17:58 Mode of Arrival: Ambulatory Source of Information: Patient Limitations: No Limitations Description of Symptoms (Recalled from Triage Doc. by RN): PATIENT C/O COUGH, RUNNY NOSE, CONGESTION, CHILLS, HEADACHE, AND SORE THROAT HEENT Symptoms (Recalled from RN notes): Yes Resp Symptoms (Recalled from RN notes): Yes Skin Symptoms (Recalled from RN notes): No MS Symptoms (Recalled from RN notes): No Functional Status (Recalled from RN notes): WNL - History of Present Illness Provider Complaint: Patient states that she has been having pain in her ears, sore throat, nasal congestion, cough and runny nose States that she recently got back from [place] States that she hasnt had a fever that she is aware of but wanted to get checked when she wasnt feeling any better today - Related Data Home Medications Medication Instructions Recorded Confirmed SUMAtriptan succinate [Imitrex] 50 mg PO DIRECTED 11/17/18 10/22/20 Icosapent Ethyl [Vascepa] 1 gm PO DAILY 03/10/19 10/22/20 albuterol sulfate 90 mcg/actuation 1 puff INHALATION Q6H PRN 06/25/19 10/22/20 aerosol inhaler levocetirizine 5 mg tablet 5 mg PO QPM PRN 06/25/19 10/22/20 montelukast 10 mg tablet 10 mg PO QPM 06/25
[2022-01-02 18:07] VITALS: BP 136/87; PULSE 95; RESP 19; TEMP 36.4; O2SAT 97
== END 2022-01-02 18:13 | disposition home or self-care (01) ==
PROVIDERS: Emergency Provider Nurse Practitioner; PCP Nurse Practitioner Family
DX: H66.91 Otitis media, unspecified, right ear (principal); R07.0 Pain in throat; R05.9 Cough, unspecified; R09.81 Nasal congestion; R68.83 Chills (without fever); R51.9 Headache, unspecified; Z87.891 Personal history of nicotine dependence
CPT/HCPCS: 87430; 87581; 87632; 87798; 99212; C9803; G0463; U0003; U0005

== ENCOUNTER 2022-05-06 20:53 | Emergency (ER) | payer BC, SELFPAY ==
[2022-05-06 20:54] VITALS: BP 146/90; PULSE 63; RESP 17; TEMP 36.9; O2SAT 99; BMI 28.8
--- NOTE | 2022-05-06 21:10 | HMH.EDGENADL ---
Discharge Plan Disposition Patient Disposition: Home, Self-Care Condition: Good Prescriptions Prescriptions: New ibuprofen 600 mg tablet 600 mg PO Q8H PRN (Reason: pain) Qty: 30 0RF tamsulosin [Flomax] 0.4 mg capsule 0.4 mg PO DAILY Qty: 7 0RF hydrocodone-acetaminophen 5-325 mg tablet 1 tab PO Q6H PRN (Reason: pain) Qty: 6 0RF No Action levocetirizine [Xyzal] 5 mg tablet 5 mg PO QPM PRN (Reason: Allergic Reaction) montelukast [Singulair] 10 mg tablet 10 mg PO QPM albuterol sulfate [ProAir HFA] 90 mcg/actuation HFA aerosol inhaler 1 puff INHALATION Q6H PRN (Reason: asthma) icosapent ethyl 1 GM capsule 1 gm PO DAILY atorvastatin 40 mg tablet 40 mg PO DAILY Label Comments: TAKE 1 TABLET BY MOUTH ONCE DAILY fenofibrate 160 mg tablet 160 mg PO DAILY Label Comments: TAKE 1 TABLET BY MOUTH ONCE DAILY Trulance 3 mg tablet 3 mg PO DAILY Ozempic 1 mg/dose (4 mg/3 mL) pen injector 4 mg SQ WEEKLY fluticasone propionate 120 SPR/BOT spray,suspension 1 spr NS DAILY Rx Instructions: 1 spray in each nostril daily sumatriptan succinate 50 MG tablet 50 mg PO DIRECTED Rx Instructions: TAKE ONE TABLET AT ONEST OF MIGRAINE, MAY REPEAT IN TWO HOURS IF NEEDED Referrals Follow up/Referrals: Lexi Murrell APRN [Primary Care Provider] - See instructions Activity Restrictions/Add. Instructions Additional Instructions/Restrictions: You have been evaluated for left flank pain, diagnosed with a kidney stone. Please take ibuprofen on schedule. Take pain medicine only as needed for severe pain. Stay hydrated. Follow-up with your primary care doctor or urologist. Return to the emergency department at once for any new or worsening symptoms, pain, fever, vomiting, other concerns Your CT scan today shows that your tubal ligation clip on the right has migrated. It is no longer in the correct position and no longer functional. You will need to follow-up with your [employer]. Clinical Impressions Clinical Impression: Kidney stone Stand Alone Forms Stand Alone Forms: Work/School Release Instructions Patient Instructions: DI for Kidney Stones Discharge ED Provider: Cyndi Gonzalez Adult [facility] General Chief complaint: Urogenital-Female Stated complaint: URINATING BLOOD LEFT SIDE PAIN Time Seen by Provider: 05/06/22 20:58 History of Present Illness HPI narrative: 47-year-old male presenting to the emergency department with flank pain. Started yesterday. She had occasional, cramping pain that was located on the left side of the low back. Pain is sharp and achy. Now is radiating toward her lower abdomen her bladder. She is had urinary tract infections before, no history of kidney stones. Her urine was dark red in color this evening. Had some pain with urination, felt like she needed to urinate, but was unable to. No medications prior to arrival, other than Mucinex for a sinus infection. She denies recent antibiotic use. No changes in bowel habits. No fevers, chills, nausea, vomiting. Related Data Home Medications Medication Instructions Recorded Confirmed sumatriptan succinate 50 mg tablet 50 mg PO DIRECTED MIGRAINE 11/17/18 05/06/22 icosapent ethyl 1 gram capsule 1 gm PO DAILY Cholesterol 03/10/19 05/06/22 albuterol sulfate 90 mcg/actuation 1 puff inhalation Q6H PRN asthma 06/25/19 05/06/22 aerosol inhaler (ProAir HFA) levocetirizine 5 mg tablet (Xyzal) 5 mg PO QPM PRN Allergic Reaction 06/25/19 05/06/22 montelukast 10 mg tablet 10 mg PO QPM Allergy symptoms 06/25/19 05/06/22 (Singulair) atorvastatin 40 mg tablet 40 mg PO DAILY High cholesterol 05/06/22 05/06/22 fenofibrate 160 mg tablet 160 mg PO DAILY supp 05/06/22 05/06/22 fluticasone propionate 50 1 spr NS DAILY Allergy symptoms 05/06/22 05/06/22 mcg/actuation nasal spray,suspension plecanatide 3 mg tablet (Trulance) 3 mg PO DAILY Diabetes 05/06/22 1
[2022-05-06 21:15] LABS: Microscopic, Urine URINE MICROSCOPIC (MICROSCOPIC)
[2022-05-06 21:21] LABS: Urine Pregnancy, HCG Qual. Negative (Negative)
[2022-05-06 21:22] LABS: Appearance,Urine SL CLOUDY (Clear); Bilirubin,Urine Negative (Negative); Blood, Urine 3+ (Negative); Color,Urine ORANGE (Yellow); Glucose,Urine (UA) Negative (Negative); Ketones,Urine Negative (Negative); Leukocyte Esterase,Urine Negative (Negative); Nitrate,Urine Negative (Negative); Protein,Urine 1+ (Negative); Urobilinogen,Urine 0.2 EU/dl (0.2)
[2022-05-06 21:25] LABS: Basophils # 0.2 K/mm3 (0-0.2); Basophils % 1.7 % (0.1-2.0); Eosinophils # 0.1 K/mm3 (0.0-0.4); Eosinophils % 0.9 % (0.1-12.0); Hematocrit 41.9 % (37.0-47.0); Hemoglobin 13.6 g/dL (12.2-16.2); Lymphocytes # 3.8 K/mm3 (0.7-4.5); Lymphocytes % 35.6 % (10-50); Mean Corpuscular HGB Conc 32.4 g/dL (31.8-35.4); Mean Corpuscular Hemoglobin 30.1 pg (27.0-31.2); Mean Corpuscular Volume 92.8 fl (81-99); Mean Platelet Volume 7.9 fl (7.4-10.4); Monocytes # 0.7 K/mm3 (0.1-1.0); Monocytes % 6.1 % (1.7-9.3); Neutrophils # 5.9 K/mm3 (1.8-7.8); Neutrophils % 55.6 % (37.0-80.0); Platelet Count 348 K/mm3 (142-424); Red Blood Count 4.51 M/mm3 (4.20-5.40); Red Cell Distribution Width 12.5 % (11.5-17.5); White Blood Count 10.7 K/mm3 (4.8-10.8)
[2022-05-06 21:29] LABS: Chloride 101 mmol/L (98-107); Potassium 3.9 mmoL/L (3.5-5.1); Sodium 139 mmol/L (136-145)
[2022-05-06 21:30] VITALS: BP 155/98; PULSE 66; O2SAT 97
[2022-05-06 21:32] LABS: Alanine Aminotransferase 34 U/L (12-78); Albumin Level 4.6 g/dl (3.5-5.0); Albumin/Globulin Ratio 1.6 (1.1-1.8); Alkaline Phosphatase 61 U/L (38-126); Anion Gap 15.9 mEq/L (5-15); Aspartate Amino Transferase 44 U/L (14-36); Bilirubin,Total 0.3 mg/dl (0.2-1.3); Blood Urea Nitrogen 16 mg/dl (7-17); Carbon Dioxide 26 mmol/L (22.0-30.0); Creatinine Clearance Estimated 84 mL/min (50-200); Estimated Glomerular Filt Rate 59 ml/min (>60); GFR (African American) 72 ML/MIN (>60); Globulin 2.9 g/dL (1.3-3.2); Total Protein,Serum 7.5 g/dl (6.3-8.2)
[2022-05-06 21:33] LABS: Calcium 9.3 mg/dl (8.4-10.2); Glucose 95 mg/dl (74-100)
[2022-05-06 21:47] LABS: Bacteria,Urine Trace /lpf; RBC,Urine TNTC #/hpf (0-3); Squamous Epithelial Cell,Urine Occasional #/hpf (0-5)
--- NOTE | 2022-05-06 21:50 | PC.NURSE ---
Rechecked pt condition. Warm blanket provided. No other needs voiced.
[2022-05-06 22:00] VITALS: BP 135/90; PULSE 62; O2SAT 98
--- NOTE | 2022-05-06 22:07 | CT_ITS ---
PROCEDURE INFORMATION: Exam: CT Abdomen And Pelvis Without Contrast Exam date and time: 05/06/2022 10:33 PM Age: 47 years old Clinical indication: Abdominal pain; Flank; Left; Prior surgery; Surgery date: 6+ months; Surgery type: Tv mesh and vaginal sling, partial hysterectomy, tubal ligation; Additional info: Flank pain L, stone suspected TECHNIQUE: Imaging protocol: Computed tomography of the abdomen and pelvis without contrast. Radiation optimization: All CT scans at this facility use at least one of these dose optimization techniques: automated exposure control; mA and/or kV adjustment per patient size (includes targeted exams where dose is matched to clinical indication); or iterative reconstruction. COMPARISON: CT ABDOMEN PELVIS WO CON 03/10/2019 12:48 AM FINDINGS: Lungs: Noncalcified pulmonary nodule in the left lower lobe measuring up to 8.8 mm is slightly decreased in size from 03/10/2019 and does not require further assessment. Heart: Heart size normal. Mediastinal space: The visualized distal esophagus is largely contracted without gross abnormality. Liver: There is a displaced left tubal ligation clip at the posteroinferior margin of the right hepatic lobe, which was previously in the right adnexa. The liver is otherwise unremarkable. Normal contour. No mass lesions. No intrahepatic biliary ductal dilatation. Gallbladder and bile ducts: Normal. No calcified stones. No ductal dilation. Pancreas: Normal. No inflammatory changes or ductal dilation. Spleen: Normal. No splenomegaly. Adrenal glands: Normal. No adrenal mass. Kidneys and ureters: No acute abnormalities. No hydronephrosis or hydroureter. 3 mm nonobstructive stone versus cortical calcification in the lower pole of the left kidney. No ureteral stones or hydronephrosis. Numerous intrapelvic phleboliths are present bilaterally. 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 Stomach and bowel: The stomach is unremarkable. The small bowel is nondilated with no gross abnormality. There is a moderate amount of stool distributed in the mid and proximal colon suggesting possible constipation. Appendix: The appendix is normal in caliber and demonstrates no evidence of appendicitis. Intraperitoneal space: No free fluid or air. Vasculature: No acute process. No abdominal aortic aneurysm. Lymph nodes: No adenopathy. Urinary bladder: There is a small amount of air in the urinary bladder, probably related to recent catheterization although clinical correlation is recommended. No gross signs of fistula or infection otherwise. Reproductive: Prior hysterectomy. Bones/joints: No acute osseous abnormalities. Soft tissues: Very small fatty umbilical hernia . No evidence of associated bowel herniation or strangulation. IMPRESSION: 1. There is a 3 mm nonobstructive stone versus cortical calcification in the lower pole of the left kidney. No ureteral stones or hydronephrosis. 2. No acute process is evident. There is a displaced left tubal ligation clip which is currently located at the inferior margin of the right hepatic lobe, previously in the right adnexa in 2019. Consider follow-up gynecologic referral and alternative means of contraception. Nonemergent HSG could be helpful to assess whether the left tube is patent, if clinically indicated. 3. Moderate stool in the mid and proximal colon suggesting constipation. 4. Trace air in the urinary bladder, probably related to recent catheterization although clinical confirmation is recommended. 5. Additional nonemergent findings detailed above.
[2022-05-06 22:30] VITALS: BP 132/86; PULSE 63; O2SAT 95
--- NOTE | 2022-05-06 22:36 | PC.NURSE ---
Pt gone to RAD for CT
--- NOTE | 2022-05-06 22:52 | PC.NURSE ---
Pt returned to room from RAD
[2022-05-06 23:15] VITALS: BP 144/95; PULSE 58; RESP 18; TEMP 36.7; O2SAT 98
== END 2022-05-06 23:29 | disposition home or self-care (01) ==
PROVIDERS: Emergency Provider Emergency Medicine; PCP Nurse Practitioner Family
DX: N20.0 Calculus of kidney (principal); Z79.899 Other long term (current) drug therapy; G43.909 Migraine, unspecified, not intractable, without status migrainosus; J45.909 Unspecified asthma, uncomplicated; E11.9 Type 2 diabetes mellitus without complications; Z87.891 Personal history of nicotine dependence
CPT/HCPCS: 74176; 80053; 81001; 81025; 85025; 96374; 99284

== ENCOUNTER 2022-08-07 09:15 | Emergency (ER) | payer BC, SELFPAY ==
[2022-08-07 09:20] VITALS: RESP 20; TEMP 36.8; O2SAT 99; BMI 28.5
--- NOTE | 2022-08-07 09:44 | EXP.UTC ---
Discharge Plan Disposition Patient Disposition: Home, Self-Care Condition: Good Prescriptions Prescriptions: New methylprednisolone 4 mg Tablets,Dose Pack 4 mg PO DIRECTED Qty: 21 0RF baclofen 5 mg tablet 5 mg PO TID PRN (Reason: muscle spasm) Qty: 30 0RF No Action levocetirizine [Xyzal] 5 mg tablet 5 mg PO QPM PRN (Reason: Allergic Reaction) montelukast [Singulair] 10 mg tablet 10 mg PO QPM albuterol sulfate [ProAir HFA] 90 mcg/actuation HFA aerosol inhaler 1 puff INHALATION Q6H PRN (Reason: asthma) icosapent ethyl 1 GM capsule 1 gm PO DAILY atorvastatin 40 mg tablet 40 mg PO DAILY Label Comments: TAKE 1 TABLET BY MOUTH ONCE DAILY fenofibrate 160 mg tablet 160 mg PO DAILY Label Comments: TAKE 1 TABLET BY MOUTH ONCE DAILY Trulance 3 mg tablet 3 mg PO DAILY Ozempic 1 mg/dose (4 mg/3 mL) pen injector 4 mg SQ WEEKLY fluticasone propionate 120 SPR/BOT spray,suspension 1 spr NS DAILY Rx Instructions: 1 spray in each nostril daily ibuprofen 600 mg tablet 600 mg PO Q8H PRN (Reason: pain) Qty: 30 0RF tamsulosin [Flomax] 0.4 mg capsule 0.4 mg PO DAILY Qty: 7 0RF hydrocodone-acetaminophen 5-325 mg tablet 1 tab PO Q6H PRN (Reason: pain) Qty: 6 0RF sumatriptan succinate 50 MG tablet 50 mg PO DIRECTED Rx Instructions: TAKE ONE TABLET AT ONEST OF MIGRAINE, MAY REPEAT IN TWO HOURS IF NEEDED Referrals Follow up/Referrals: Lexi Murrell APRN [Primary Care Provider] - See instructions Activity Restrictions/Add. Instructions Additional Instructions/Restrictions: Go home and rest. No heavy lifting. No twisting. Take the oral medications as directed. The muscle relaxer (baclofen) will make you drowsy, so don't drive or operate heavy machinery after taking it. Don't start the oral steroids (medrol dose pack) until tomorrow, since you had the shots in here today. Follow up with your regular doctor. GO TO THE ER FOR ANY WORSENING SYMPTOMS OR CONCERN, ESPECIALLY BOWEL OR BLADDER ISSUES, SADDLE AREA NUMBNESS, FEVER, ETC Don't take the flexeril (cyclobenzaprine) that you already have with the baclofen that we prescribed here. They are both muscle relaxers. Clinical Impressions Clinical Impression: Back pain, thoracic, Neck pain, Radiculopathy affecting upper extremity Stand Alone Forms Stand Alone Forms: Work/School Release Instructions Patient Instructions: DI for Cervical Radiculopathy Discharge ED Provider: René Euceda [facility] General Stated complaint: LT back pain Time Seen by Provider: 08/07/22 09:43 History of Present Illness Provider Complaint: She states that she his having neck pain that radiates to her left shoulder and down her left arm at times. She has tingling in her left finger tips at times. These symptoms have been an ongoing issue, but they are getting worse. She denies any fall, mva or injury. She denies chest pain. Related Data Home Medications Medication Instructions Recorded Confirmed sumatriptan succinate 50 mg tablet 50 mg PO DIRECTED MIGRAINE 11/17/18 05/06/22 icosapent ethyl 1 gram capsule 1 gm PO DAILY Cholesterol 03/10/19 05/06/22 albuterol sulfate 90 mcg/actuation 1 puff inhalation Q6H PRN asthma 06/25/19 05/06/22 aerosol inhaler (ProAir HFA) levocetirizine 5 mg tablet (Xyzal) 5 mg PO QPM PRN Allergic Reaction 06/25/19 05/06/22 montelukast 10 mg tablet 10 mg PO QPM Allergy symptoms 06/25/19 05/06/22 (Singulair) atorvastatin 40 mg tablet 40 mg PO DAILY High cholesterol 05/06/22 05/06/22 fenofibrate 160 mg tablet 160 mg PO DAILY supp 05/06/22 05/06/22 fluticasone propionate 50 1 spr NS DAILY Allergy symptoms 05/06/22 05/06/22 mcg/actuation nasal spray,suspension plecanatide 3 mg tablet (Trulance) 3 mg PO DAILY Diabetes 05/06/22 05/06/22 semaglutide 1 mg/dose (4 mg/3 mL) 4 mg SQ WEEKLY Diabetes 05/06/22 05/06/22 subcutaneous pen inj
--- NOTE | 2022-08-07 09:50 | XR_ITS ---
FINAL REPORT CLINICAL HISTORY: pain FINDINGS: THORACIC SPINE SERIES. Two views demonstrate no fracture. Mild diffuse degenerative disc disease. Mild dextroscoliosis. There is no malalignment. IMPRESSION: Mild diffuse degenerative disc disease. Reviewed, Interpreted and Dictated by Bryon Montez MD Transcribed by Andre Pang Authenticated and [facility]
--- NOTE | 2022-08-07 09:50 | XR_ITS ---
FINAL REPORT TECHNIQUE: 3 views CLINICAL HISTORY: pain FINDINGS: There is no fracture present. There is no malalignment. There are no significant degenerative changes. IMPRESSION: No acute process. Reviewed, Interpreted and Dictated by Bryon Montez MD Transcribed by Andre Pang Authenticated and [facility]
[2022-08-07 11:23] VITALS: BP 157/93; PULSE 72; RESP 20; TEMP 36.7; O2SAT 99
== END 2022-08-07 11:22 | disposition home or self-care (01) ==
PROVIDERS: Emergency Provider Nurse Practitioner Family; PCP Nurse Practitioner Family
DX: M54.6 Pain in thoracic spine (principal); M54.2 Cervicalgia; M54.10 Radiculopathy, site unspecified
CPT/HCPCS: 72040; 72070; 96372; 99212; 99214; G0463

== ENCOUNTER → 2022-08-16 14:59 | Outpatient (CLI) | payer BC, SELFPAY ==
--- NOTE | 2022-08-16 15:06 | MR_ITS ---
FINAL REPORT CLINICAL HISTORY: .LEFT SIDED NECK PAIN. LEFT ARM PAIN. NUMBNESS AND TINGLING IN LEFT HAND AND FINGERS. NO INJURY OR TRAUMA. COMPARISON: None FINDINGS: Multiplanar MR imaging of the cervical spine was performed without contrast. On the sagittal T2-weighted images, disc degeneration is seen at multiple levels. There is no evidence of fracture. The vertebral alignment is normal. The cervical spinal cord has an unremarkable appearance without evidence of mass, edema or syrinx. The cervicomedullary junction is normal. C2-3: There is no significant canal stenosis or neural foraminal narrowing. C3-4: Small central disc protrusion. No significant canal stenosis or neural foraminal narrowing. C4-5: Small central disc protrusion. No significant canal stenosis or neural foraminal narrowing. C5-6: Left foraminal disc protrusion with partially covered osteophyte. Moderate left neural foraminal narrowing. Left C6 nerve root impingement. C6-7: There is no significant canal stenosis or neural foraminal narrowing. C7-T1: Small left paracentral disc protrusion. Mild left neural foraminal narrowing. IMPRESSION: Multilevel degenerative disc disease as above. Reviewed, Interpreted and Dictated by Chandler Sauceda III, MD Transcribed by Liat Matias Authenticated and [facility]
--- NOTE | 2022-08-16 15:06 | MR_ITS ---
PROCEDURE INFORMATION: Exam: MR Thoracic Spine Without Contrast Exam date and time: 08/16/2022 3:28 PM Age: 47 years old Clinical indication: Pain in thoracic spine; Additional info: . Left sided neck pain. Left arm pain. Numbness and tingling in left hand and fingers. No injury or trauma. Mid back pain around scapula. TECHNIQUE: Imaging protocol: Magnetic resonance imaging of the thoracic spine without contrast. COMPARISON: 1. CR XR THORACIC SPINE 2V 08/07/2022 9:50 AM 2. MR CERVICAL SPINE WO CON 08/16/2022 3:28 PM FINDINGS: Bones/joints: Alignment is near anatomic. The vertebral body heights are maintained as are the disc spaces. No acute osseous injury. There is marrow edema posteriorly in the left T5 superior endplate. Spinal cord: Normal signal. No cord compression. C6-C7: C6-C7 minimal left-sided paracentral focal disc protrusion is present without stenosis. T1-T2: No significant disc disease. No significant spinal canal stenosis. T2-T3: No significant disc disease. No significant spinal canal stenosis. T3-T4: No significant disc disease. No significant spinal canal stenosis. T4-T5: No significant disc disease. No significant spinal canal stenosis. T5-T6: No significant disc disease. No significant spinal canal stenosis. T6-T7: No significant disc disease. No significant spinal canal stenosis. T7-T8: T7-8 left-sided paracentral focal disc protrusion abuts the ventral cord without compression. This causes mild stenosis of the spinal canal. The neural foramina are patent. T8-T9: T8-9 minimal diffuse disc bulging without stenosis. T9-T10: T9-10 minimal diffuse disc bulging without stenosis. T10-T11: No significant disc disease. No significant spinal canal stenosis. T11-T12: No significant disc disease. No significant spinal canal stenosis. T12-L1: No significant disc disease. No significant spinal canal stenosis. Soft tissues: Unremarkable. IMPRESSION: 1. Mild thoracic spinal degenerative disc disease with mild stenosis of the spinal canal at T7-T8. No high-grade spinal canal or neural foraminal compromise. 2. Focal marrow edema in the left T5 superior endplate posteriorly without corresponding height loss. Differential diagnosis is degenerative endplate changes an osteoid osteoma or possibly subtle nondisplaced fracture. Consider CT for further assessment.
== END ==
LOC: RAD 14:59
PROVIDERS: PCP Nurse Practitioner Family; Visit Provider Nurse Practitioner Family
DX: M54.2 Cervicalgia (principal); M54.6 Pain in thoracic spine; M54.10 Radiculopathy, site unspecified
CPT/HCPCS: 72141; 72146; 76376

== ENCOUNTER 2022-09-17 15:00 | Outpatient (RCR) | payer BC, SELFPAY | END 2022-09-17 15:05 | disposition home or self-care (01) | LOC: PT 15:00 | PROVIDERS: PCP Nurse Practitioner Family; Visit Provider Nurse Practitioner Family | DX: M54.2 Cervicalgia (principal) | CPT/HCPCS: 20560; 97010; 97012; 97014; 97110; 97112; 97140; 97163; 97164; 97530; G0283 ==

== ENCOUNTER → 2023-04-24 15:44 | Outpatient (CLI) | payer BC, SELFPAY ==
[2023-04-29 16:50] LABS: Hemoglobin A1C 5.8 % (4.0-6.0)
[2023-04-29 17:19] LABS: Alanine Aminotransferase 52 U/L (12-78); Albumin Level 4.9 g/dl (3.5-5.0); Albumin/Globulin Ratio 1.5 (1.1-1.8); Alkaline Phosphatase 48 U/L (38-126); Anion Gap 13.1 mEq/L (5-15); Aspartate Amino Transferase 45 U/L (14-36); Bilirubin,Total 0.4 mg/dl (0.2-1.3); Blood Urea Nitrogen 20 mg/dl (7-17); Calcium 10.4 mg/dl (8.4-10.2); Carbon Dioxide 30 mmol/L (22.0-30.0); Chloride 100 mmol/L (98-107); Chol/HDL Ratio 3.6 (1-3.5); Cholesterol 168 mg/dl (140-200); Estimated Glomerular Filt Rate 67 ml/min (>60); GFR (African American) 81 ML/MIN (>60); Globulin 3.3 g/dL (1.3-3.2); Glucose 148 mg/dl (74-100); HDL Cholesterol 47 mg/dl (40-60); Potassium 4.1 mmoL/L (3.5-5.1); Sodium 139 mmol/L (136-145); Total Protein,Serum 8.2 g/dl (6.3-8.2); Triglycerides 192 mg/dl (30-150); VLDL Cholesterol 38 mg/dL (0-40)
[2023-04-29 17:30] LABS: Direct LDL Cholesterol 90.52 mg/dL (100-129)
[2023-04-29 17:36] LABS: 25-OH Vitamin D, Total 87.6 ng/mL (30-100)
[2023-04-29 18:08] LABS: Vitamin B12 799 pg/mL (239-931)
[2023-05-01 10:55] LABS: FSH 37.1 mIU/mL (.); Progesterone 0.3 ng/mL (.)
== END ==
PROVIDERS: PCP Nurse Practitioner Family; Visit Provider Nurse Practitioner Family
DX: E11.9 Type 2 diabetes mellitus without complications (principal); R23.2 Flushing; E55.9 Vitamin D deficiency, unspecified; E53.8 Deficiency of other specified B group vitamins; Z68.29 Body mass index [BMI] 29.0-29.9, adult
CPT/HCPCS: 80053; 80061; 82043; 82306; 82607; 82670; 83001; 83002; 83036; 84144

== ENCOUNTER 2023-07-22 16:40 | Outpatient (CLI) | payer BC, SELFPAY ==
[2023-07-22 17:43] LABS: Hemoglobin A1C 5.8 % (4.0-6.0)
[2023-07-22 17:44] LABS: Alanine Aminotransferase 66 U/L (12-78); Albumin Level 4.7 g/dl (3.5-5.0); Albumin/Globulin Ratio 1.7 (1.1-1.8); Alkaline Phosphatase 69 U/L (38-126); Anion Gap 9.5 mEq/L (5-15); Aspartate Amino Transferase 46 U/L (14-36); Bilirubin,Total 0.4 mg/dl (0.2-1.3); Blood Urea Nitrogen 17 mg/dl (7-17); Calcium 9.6 mg/dl (8.4-10.2); Carbon Dioxide 26 mmol/L (22.0-30.0); Chloride 106 mmol/L (98-107); Estimated Glomerular Filt Rate 77 ml/min (>60); GFR (African American) 93 ML/MIN (>60); Globulin 2.7 g/dL (1.3-3.2); Glucose 90 mg/dl (74-100); Potassium 4.5 mmoL/L (3.5-5.1); Sodium 137 mmol/L (136-145); Total Protein,Serum 7.4 g/dl (6.3-8.2)
[2023-07-22 18:15] LABS: Thyroid Stimulating Hormone 1.54 uIU/mL (0.465-4.68)
[2023-07-22 18:34] LABS: Vitamin B12 633 pg/mL (239-931)
== END 2023-07-22 23:59 ==
LOC: LAB.DROPOF 16:41
PROVIDERS: PCP Nurse Practitioner Family; Visit Provider Nurse Practitioner Family
DX: R23.2 Flushing (principal); E11.9 Type 2 diabetes mellitus without complications; E53.8 Deficiency of other specified B group vitamins
CPT/HCPCS: 80053; 82607; 83036; 84443

== ENCOUNTER 2023-10-23 09:38 | Outpatient (CLI) | payer BC, SELFPAY ==
[2023-10-23 17:41] LABS: Hemoglobin A1C 5.9 % (4.0-6.0)
[2023-10-23 18:00] LABS: Alanine Aminotransferase 30 U/L (12-78); Albumin Level 5.1 g/dl (3.5-5.0); Albumin/Globulin Ratio 1.8 (1.1-1.8); Alkaline Phosphatase 61 U/L (38-126); Anion Gap 14.5 mEq/L (5-15); Aspartate Amino Transferase 28 U/L (14-36); Bilirubin,Total 0.6 mg/dl (0.2-1.3); Blood Urea Nitrogen 24 mg/dl (7-17); Carbon Dioxide 30 mmol/L (22.0-30.0); Chloride 100 mmol/L (98-107); Cholesterol 177 mg/dl (140-200); Estimated Glomerular Filt Rate 77 ml/min (>60); GFR (African American) 93 ML/MIN (>60); Globulin 2.8 g/dL (1.3-3.2); Glucose 84 mg/dl (74-100); HDL Cholesterol 59 mg/dl (40-60); Potassium 4.5 mmoL/L (3.5-5.1); Sodium 140 mmol/L (136-145); Total Protein,Serum 7.9 g/dl (6.3-8.2); Triglycerides 151 mg/dl (30-150); VLDL Cholesterol 30 mg/dL (0-40)
[2023-10-23 18:11] LABS: Direct LDL Cholesterol 83.03 mg/dL (100-129)
[2023-10-23 18:30] LABS: Thyroid Stimulating Hormone 2.11 uIU/mL (0.465-4.68)
[2023-10-23 18:47] LABS: Vitamin B12 411 pg/mL (239-931)
[2023-10-24 14:38] LABS: Microalbumin < 6.000 mg/L (0-16.7)
== END 2023-10-23 23:59 | disposition home or self-care (01) ==
LOC: LAB.DROPOF 10-24 09:39
PROVIDERS: PCP Nurse Practitioner Family; Visit Provider Nurse Practitioner Family
DX: E78.5 Hyperlipidemia, unspecified (principal); E53.8 Deficiency of other specified B group vitamins; E11.9 Type 2 diabetes mellitus without complications; Z68.29 Body mass index [BMI] 29.0-29.9, adult; Z79.85 Long-term (current) use of injectable non-insulin antidiabetic drugs
CPT/HCPCS: 80053; 80061; 82043; 82607; 83036; 84443

== ENCOUNTER 2023-10-24 06:58 | Outpatient (CLI) | payer BC, SELFPAY ==
[2023-10-24 16:54] LABS: Intact Parathyroid Hormone 29.4 pg/mL (7.5-53.5)
[2023-10-24 16:59] LABS: 25-OH Vitamin D, Total 54.1 ng/mL (30-100)
== END 2023-10-24 23:59 | disposition home or self-care (01) ==
PROVIDERS: PCP Nurse Practitioner Family; Visit Provider Nurse Practitioner Family
DX: E83.52 Hypercalcemia (principal); Z79.899 Other long term (current) drug therapy
CPT/HCPCS: 82306; 83970

== ENCOUNTER 2024-01-29 16:56 | Outpatient (CLI) | payer BC, SELFPAY ==
[2024-01-29 17:45] LABS: Alanine Aminotransferase 34 U/L (12-78); Albumin Level 4.7 g/dl (3.5-5.0); Albumin/Globulin Ratio 1.6 (1.1-1.8); Alkaline Phosphatase 69 U/L (38-126); Anion Gap 14.5 mEq/L (5-15); Aspartate Amino Transferase 32 U/L (14-36); Bilirubin,Total 0.6 mg/dl (0.2-1.3); Blood Urea Nitrogen 21 mg/dl (7-17); Calcium 10.6 mg/dl (8.4-10.2); Carbon Dioxide 27 mmol/L (22.0-30.0); Chloride 103 mmol/L (98-107); Chol/HDL Ratio 5.1 (1-3.5); Cholesterol 235 mg/dl (140-200); Estimated Glomerular Filt Rate 89 ml/min (>60); GFR (African American) 108 ML/MIN (>60); Globulin 2.9 g/dL (1.3-3.2); Glucose 108 mg/dl (74-100); HDL Cholesterol 46 mg/dl (40-60); Potassium 4.5 mmoL/L (3.5-5.1); Sodium 140 mmol/L (136-145); Total Protein,Serum 7.6 g/dl (6.3-8.2); Triglycerides 419 mg/dl (30-150)
[2024-01-29 17:56] LABS: Direct LDL Cholesterol 113.22 mg/dL (100-129)
[2024-01-29 18:02] LABS: 25-OH Vitamin D, Total 49.6 ng/mL (30-100)
[2024-01-29 18:12] LABS: Hemoglobin A1C 5.5 % (4.0-6.0)
[2024-01-29 18:15] LABS: Thyroid Stimulating Hormone 1.27 uIU/mL (0.465-4.68)
[2024-01-29 18:34] LABS: Vitamin B12 460 pg/mL (239-931)
[2024-01-29 20:03] LABS: Microalbumin < 6.000 mg/L (0-16.7)
== END 2024-01-29 23:59 | disposition home or self-care (01) ==
LOC: LAB.DROPOF 16:56
PROVIDERS: PCP Nurse Practitioner Family; Visit Provider Nurse Practitioner Family
DX: E11.9 Type 2 diabetes mellitus without complications (principal); E78.5 Hyperlipidemia, unspecified; E55.9 Vitamin D deficiency, unspecified; E53.8 Deficiency of other specified B group vitamins; E83.52 Hypercalcemia
CPT/HCPCS: 80053; 80061; 82043; 82306; 82607; 83036; 84443

== ENCOUNTER 2024-03-03 09:12 | Outpatient (CLI) | payer BC, SELFPAY ==
[2024-03-03 17:29] LABS: Albumin Level 4.7 g/dl (3.5-5.0); Chloride 105 mmol/L (98-107)
[2024-03-03 17:30] LABS: Potassium 4.2 mmoL/L (3.5-5.1); Sodium 141 mmol/L (136-145)
[2024-03-03 17:32] LABS: Alanine Aminotransferase 28 U/L (12-78); Albumin/Globulin Ratio 1.8 (1.1-1.8); Anion Gap 13.2 mEq/L (5-15); Aspartate Amino Transferase 29 U/L (14-36); Blood Urea Nitrogen 19 mg/dl (7-17); Carbon Dioxide 27 mmol/L (22.0-30.0); Cholesterol 212 mg/dl (140-200); Estimated Glomerular Filt Rate 59 ml/min (>60); GFR (African American) 71 ML/MIN (>60); Globulin 2.6 g/dL (1.3-3.2); Total Protein,Serum 7.3 g/dl (6.3-8.2); Triglycerides 344 mg/dl (30-150); VLDL Cholesterol 69 mg/dL (0-40)
[2024-03-03 17:33] LABS: Alkaline Phosphatase 62 U/L (38-126); Bilirubin,Total 0.6 mg/dl (0.2-1.3); Calcium 9.7 mg/dl (8.4-10.2); Chol/HDL Ratio 5.4 (1-3.5); Glucose 110 mg/dl (74-100); HDL Cholesterol 39 mg/dl (40-60); Magnesium 1.9 mg/dl (1.6-2.3)
[2024-03-03 17:44] LABS: Direct LDL Cholesterol 108.48 mg/dL (100-129)
[2024-03-03 18:45] LABS: Vitamin B12 543 pg/mL (239-931)
[2024-03-03 18:50] LABS: Basophils # 0.1 K/mm3 (0-0.2); Basophils % 1.2 % (0.1-2.0); Eosinophils # 0.1 K/mm3 (0.0-0.4); Eosinophils % 0.7 % (0.1-12.0); Hematocrit 46.2 % (37.0-47.0); Hemoglobin 14.2 g/dL (12.2-16.2); Lymphocytes # 2.8 K/mm3 (0.7-4.5); Lymphocytes % 39.2 % (10-50); Mean Corpuscular HGB Conc 30.7 g/dL (31.8-35.4); Mean Corpuscular Hemoglobin 29.5 pg (27.0-31.2); Mean Corpuscular Volume 96.2 fl (81-99); Mean Platelet Volume 8.6 fl (7.4-10.4); Monocytes # 0.4 K/mm3 (0.1-1.0); Monocytes % 5.2 % (1.7-9.3); Neutrophils # 3.8 K/mm3 (1.8-7.8); Neutrophils % 53.8 % (37.0-80.0); Platelet Count 287 K/mm3 (142-424); Red Cell Distribution Width 12.8 % (11.5-17.5); White Blood Count 7.1 K/mm3 (4.8-10.8)
[2024-03-03 18:55] LABS: Thyroid Stimulating Hormone 1.65 uIU/mL (0.465-4.68)
[2024-03-04 05:57] LABS: Hemoglobin A1C 5.7 % (4.0-6.0)
[2024-03-05 12:12] LABS: Estradiol 12.2 pg/mL (.); FSH 94.9 mIU/mL (.); LH 60.4 mIU/mL (.); Progesterone 0.1 ng/mL (.)
[2024-03-11 15:12] LABS: Free Testosterone (Direct) < 0.2 pg/mL (0.0-4.2); Testosterone, Total, LC/MS 5.8 ng/dL (.)
== END 2024-03-03 23:59 | disposition home or self-care (01) ==
LOC: LAB.DROPOF 03-05 09:12
PROVIDERS: PCP Nurse Practitioner Family; Visit Provider Nurse Practitioner Family
DX: R23.2 Flushing (principal); E53.8 Deficiency of other specified B group vitamins; E11.9 Type 2 diabetes mellitus without complications
CPT/HCPCS: 80053; 80061; 82607; 82670; 83001; 83002; 83036; 83735; 84144; 84443; 85025; 86225; 86235

== ENCOUNTER 2024-03-25 15:55 | Outpatient (CLI) | payer BC, SELFPAY ==
[2024-03-25 16:37] LABS: Creatinine,Urine Random 99 mg/dL (Not Estab.)
[2024-03-25 16:47] LABS: Alanine Aminotransferase 27 U/L (12-78); Albumin Level 4.8 g/dl (3.5-5.0); Albumin/Globulin Ratio 1.4 (1.1-1.8); Alkaline Phosphatase 72 U/L (38-126); Anion Gap 13.3 mEq/L (5-15); Aspartate Amino Transferase 47 U/L (14-36); Bilirubin,Total 0.6 mg/dl (0.2-1.3); Blood Urea Nitrogen 18 mg/dl (7-17); Calcium 9.8 mg/dl (8.4-10.2); Carbon Dioxide 27 mmol/L (22.0-30.0); Chloride 105 mmol/L (98-107); Chol/HDL Ratio 4.8 (1-3.5); Cholesterol 248 mg/dl (140-200); Estimated Glomerular Filt Rate 106 ml/min (>60); GFR (African American) 129 ML/MIN (>60); Globulin 3.4 g/dL (1.3-3.2); Glucose 81 mg/dl (74-100); HDL Cholesterol 52 mg/dl (40-60); Potassium 4.3 mmoL/L (3.5-5.1); Sodium 141 mmol/L (136-145); Total Protein,Serum 8.2 g/dl (6.3-8.2); Triglycerides 368 mg/dl (30-150); VLDL Cholesterol 74 mg/dL (0-40)
[2024-03-25 16:49] LABS: Hemoglobin A1C 5.6 % (4.0-6.0); Microalbumin < 6.000 mg/L (0-16.7)
[2024-03-25 17:18] LABS: Thyroid Stimulating Hormone 1.88 uIU/mL (0.465-4.68)
[2024-03-25 17:37] LABS: Vitamin B12 536 pg/mL (239-931)
[2024-03-25 18:19] LABS: Direct LDL Cholesterol 118.75 mg/dL (100-129)
[2024-03-25 18:44] LABS: Ferritin 78.3 ng/ml (6.24-137)
== END 2024-03-25 23:59 | disposition home or self-care (01) ==
LOC: LAB.DROPOF 03-26 09:03
PROVIDERS: PCP Nurse Practitioner Family; Visit Provider Nurse Practitioner Family
DX: E78.5 Hyperlipidemia, unspecified (principal); K76.0 Fatty (change of) liver, not elsewhere classified; E11.9 Type 2 diabetes mellitus without complications; R53.83 Other fatigue; E53.8 Deficiency of other specified B group vitamins; Z79.84 Long term (current) use of oral hypoglycemic drugs
CPT/HCPCS: 80053; 80061; 82043; 82570; 82607; 82728; 83036; 84443

== ENCOUNTER 2024-04-29 05:26 | Outpatient (CLI) | payer BC, SELFPAY ==
[2024-04-29 06:36] LABS: Basophils # 0.1 K/mm3 (0-0.2); Basophils % 1.1 % (0.1-2.0); Eosinophils # 0.1 K/mm3 (0.0-0.4); Eosinophils % 0.7 % (0.1-12.0); Hematocrit 44.4 % (37.0-47.0); Hemoglobin 14.7 g/dL (12.2-16.2); Lymphocytes # 2.8 K/mm3 (0.7-4.5); Lymphocytes % 36.6 % (10-50); Mean Corpuscular HGB Conc 33.1 g/dL (31.8-35.4); Mean Corpuscular Hemoglobin 30.1 pg (27.0-31.2); Mean Corpuscular Volume 90.7 fl (81-99); Mean Platelet Volume 7.9 fl (7.4-10.4); Monocytes # 0.4 K/mm3 (0.1-1.0); Monocytes % 5.4 % (1.7-9.3); Neutrophils # 4.3 K/mm3 (1.8-7.8); Neutrophils % 56.3 % (37.0-80.0); Platelet Count 234 K/mm3 (142-424); White Blood Count 7.6 K/mm3 (4.8-10.8)
[2024-04-29 07:02] LABS: Albumin Level 4.4 g/dl (3.5-5.0)
[2024-04-29 07:15] LABS: Intact Parathyroid Hormone 64.7 pg/mL (7.5-53.5)
[2024-04-29 07:20] LABS: T4 (Thyroxine) 13.1 ug/dl (5.53-11.0)
[2024-04-29 07:33] LABS: Thyroid Stimulating Hormone 2.13 uIU/mL (0.465-4.68)
[2024-04-29 07:37] LABS: Ferritin 63.5 ng/ml (6.24-137)
[2024-04-29 07:53] LABS: Vitamin B12 422 pg/mL (239-931)
[2024-04-29 08:02] LABS: Sodium 139 mmol/L (136-145)
[2024-04-29 08:05] LABS: Albumin/Globulin Ratio 1.7 (1.1-1.8); Anion Gap 12.2 mEq/L (5-15); Estimated Glomerular Filt Rate 89 ml/min (>60); GFR (African American) 108 ML/MIN (>60); Globulin 2.6 g/dL (1.3-3.2)
[2024-04-29 08:23] LABS: Free T4 (Free Thyroxine) 1.13 ng/dl (0.78-2.19)
[2024-04-29 09:39] LABS: Chloride 107 mmol/L (98-107); Potassium 4.2 mmoL/L (3.5-5.1)
[2024-04-29 09:41] LABS: Alanine Aminotransferase 20 U/L (12-78); Aspartate Amino Transferase 23 U/L (14-36); Blood Urea Nitrogen 24 mg/dl (7-17)
[2024-04-29 09:42] LABS: Alkaline Phosphatase 61 U/L (38-126); Bilirubin,Total 0.5 mg/dl (0.2-1.3); Calcium 9.4 mg/dl (8.4-10.2); Carbon Dioxide 24 mmol/L (22.0-30.0); Glucose 92 mg/dl (74-100)
[2024-04-30 08:23] LABS: Thyroid Peroxidase Antibodies 32 IU/mL (0-34); Triiodothyronine (T3) Free 2.5 pg/mL (2.0-4.4)
[2024-04-30 16:14] LABS: Thyroglobulin Level <1.0 IU/mL (0.0-0.9)
[2024-05-03 17:49] LABS: Vitamin C 0.4 mg/dL (0.4-2.0)
[2024-05-03 21:36] LABS: Vitamin B6 17.9 ug/L (3.4-65.2)
[2024-05-04 03:39] LABS: Magnesium,RBC 5.5 mg/dL (3.7-7.0)
[2024-05-07 00:08] LABS: Vitamin B1 93.2 nmol/L (66.5-200.0)
[2024-05-21 15:56] LABS: EBV Ab VCA, IgG >600.0; EBV Ab VCA, IgM <36.0
[2024-05-21 15:57] LABS: Antinuclear Antibodies (ANA) NEGATIVE; EBV Nuclear Antigen Ab, IgG 52.7
[2024-06-09 15:14] LABS: Triiodothyronine (T3) Reverse 28.5
== END 2024-04-29 23:59 | disposition home or self-care (01) ==
LOC: LAB 05:29
PROVIDERS: PCP Nurse Practitioner Family; Visit Provider Nurse Practitioner Family
DX: R53.83 Other fatigue (principal); R23.2 Flushing; R11.2 Nausea with vomiting, unspecified
CPT/HCPCS: 80050; 80053; 82180; 82533; 82607; 82728; 83088; 83735; 83970; 84207; 84425; 84436; 84439; 84443; 84481; 84482; 85025; 86038; 86225; 86235; 86376; 86664; 86665; 86800

== ENCOUNTER 2024-06-08 15:44 | Outpatient (CLI) | payer BC, SELFPAY ==
[2024-06-08 17:18] LABS: 25-OH Vitamin D, Total 71.8 ng/mL (30-100)
[2024-06-09 13:13] LABS: Calcium, Ionized 5.2 mg/dL (4.5-5.6)
== END 2024-06-08 23:59 | disposition home or self-care (01) ==
LOC: LAB.DROPOF 06-09 08:38
PROVIDERS: PCP Nurse Practitioner Family; Visit Provider Nurse Practitioner Family
DX: R79.89 Other specified abnormal findings of blood chemistry (principal)
CPT/HCPCS: 82306; 82330; 83970

== ENCOUNTER 2024-06-24 13:47 | Outpatient (CLI) | payer BC, SELFPAY ==
--- NOTE | 2024-06-24 13:47 | US_ITS ---
FINAL REPORT CLINICAL HISTORY: Elevated parathyroid hormone FINDINGS: Sonographic images of the thyroid gland were obtained. The right thyroid lobe measures 5.4 x 1.3 x 1.7 cm in length. The left thyroid lobe measures 4.6 x 1.2 x 1.3 cm in length. The thyroid isthmus measures 0.2 mm. The echogenicity is normal. There are small, cystic nodules in the left lobe measuring up to 4 mm. IMPRESSION: Small cystic nodules measuring up to 4 mm in the left lobe, TI-RADS category 1. Reviewed, Interpreted and Dictated by Chandler Sauceda III, MD Transcribed by Kyara Perkins Authenticated and [facility]
== END 2024-06-24 23:59 | disposition home or self-care (01) ==
LOC: RAD 13:47
PROVIDERS: PCP Nurse Practitioner Family; Visit Provider Nurse Practitioner Family
DX: R79.89 Other specified abnormal findings of blood chemistry (principal)
CPT/HCPCS: 76536

== ENCOUNTER 2024-07-14 08:29 | Outpatient (CLI) | payer BC, SELFPAY ==
--- NOTE | 2024-07-14 08:34 | NM_ITS ---
FINAL REPORT CLINICAL HISTORY: Elevated parathyroid hormone 8:40am 20.9 mci tc sestamibi COMPARISON: None FINDINGS: 20.9 mCi Technetium 99-M Sestamibi was administered. Planar imaging was performed early and two-hour delayed of the neck and upper thorax. Early imaging shows physiologic uptake within the upper neck involving the salivary glands and lower neck involving the thyroid gland. On delayed imaging there is no abnormal retained activity in the lower neck or mediastinum to localize parathyroid adenoma. IMPRESSION: No scintigraphic evidence of parathyroid adenoma. Reviewed, Interpreted and Dictated by Lucita Kaur MD Transcribed by Alivia Page Authenticated and [facility]
[2024-07-14] MEDS: ISO TC99M (SESTAMIBI);1 DOSE VIAL IV (08:53)
[2024-07-14] MEDS: SODIUM CHLORIDE 0.9% 10ML SYR (RAD ONLY) 10 ML IV (08:53)
== END 2024-07-14 23:59 | disposition home or self-care (01) ==
LOC: RAD 08:30
PROVIDERS: PCP Nurse Practitioner Family; Visit Provider Nurse Practitioner Family
DX: R79.89 Other specified abnormal findings of blood chemistry (principal)
CPT/HCPCS: 78070; A9500

== ENCOUNTER 2024-08-31 14:31 | Outpatient (CLI) | payer BC, SELFPAY ==
[2024-08-31 15:54] LABS: Creatinine,Urine Random 51 mg/dL (Not Estab.)
[2024-08-31 16:22] LABS: Creatinine 24 Hour,Urine 1020 mg/24hr (630-2500); Total Volume,Urine 2000 mL (600-1600)
[2024-08-31 16:23] LABS: Collection Time,Urine 24 hours
[2024-09-01 10:11] LABS: Calcium, Urine 14.3 mg/dL (Not Estab.); Calcium, Urine 24hr 286 mg/24 hr (0-320)
== END 2024-08-31 23:59 | disposition home or self-care (01) ==
LOC: LAB 14:33
PROVIDERS: PCP Nurse Practitioner Family; Visit Provider Nurse Practitioner
DX: E21.3 Hyperparathyroidism, unspecified (principal)
CPT/HCPCS: 82340; 82570

== ENCOUNTER 2024-11-16 16:11 | Outpatient (CLI) | payer BC, SELFPAY ==
[2024-11-16 17:22] LABS: Basophils # 0.1 K/mm3 (0-0.2); Basophils % 0.7 % (0.1-2.0); Eosinophils % 0.4 % (0.1-12.0); Hematocrit 41.7 % (37.0-47.0); Hemoglobin 13.8 g/dL (12.2-16.2); Lymphocytes # 2.7 K/mm3 (0.7-4.5); Lymphocytes % 38.8 % (10-50); Mean Corpuscular HGB Conc 33.1 g/dL (31.8-35.4); Mean Corpuscular Hemoglobin 29.7 pg (27.0-31.2); Mean Corpuscular Volume 89.9 fl (81-99); Mean Platelet Volume 10.7 fl (7.4-10.4); Monocytes # 0.5 K/mm3 (0.1-1.0); Monocytes % 6.8 % (1.7-9.3); Neutrophils # 3.7 K/mm3 (1.8-7.8); Nucleated Red Blood Cells # 0 10^3/uL; Nucleated Red Blood Cells % 0 %; Platelet Count 275 K/mm3 (142-424); Red Blood Count 4.64 M/mm3 (4.20-5.40); Red Cell Distribution Width 11.9 % (11.5-17.5); Red Cell Distribution Width-SD 39.1 fL; White Blood Count 7.1 K/mm3 (4.8-10.8)
[2024-11-16 17:37] LABS: Alkaline Phosphatase 61 U/L (38-126); Bilirubin,Total 0.7 mg/dl (0.2-1.3); Calcium 9.9 mg/dl (8.4-10.2); Chloride 104 mmol/L (98-107); Chol/HDL Ratio 4.5 (1-3.5); Cholesterol 208 mg/dl (140-200); Glucose 83 mg/dl (74-100); HDL Cholesterol 46 mg/dl (40-60); Magnesium 2.2 mg/dl (1.6-2.3); Potassium 4.6 mmoL/L (3.5-5.1); Sodium 139 mmol/L (136-145); Triglycerides 140 mg/dl (30-150); VLDL Cholesterol 28 mg/dL (0-40)
[2024-11-16 17:39] LABS: Alanine Aminotransferase 34 U/L (12-78); Albumin Level 4.8 g/dl (3.5-5.0); Albumin/Globulin Ratio 2.1 (1.1-1.8); Anion Gap 12.6 mEq/L (5-15); Aspartate Amino Transferase 31 U/L (14-36); Blood Urea Nitrogen 18 mg/dl (7-17); Carbon Dioxide 27 mmol/L (22.0-30.0); Estimated Glomerular Filt Rate 67 ml/min (>60); GFR (African American) 81 ML/MIN (>60); Globulin 2.3 g/dL (1.3-3.2); Total Protein,Serum 7.1 g/dl (6.3-8.2)
[2024-11-16 17:48] LABS: Direct LDL Cholesterol 111.99 mg/dL (100-129)
[2024-11-16 17:53] LABS: 25-OH Vitamin D, Total 87.8 ng/mL (30-100)
[2024-11-16 18:08] LABS: Thyroid Stimulating Hormone 1.56 uIU/mL (0.465-4.68)
[2024-11-16 18:27] LABS: Vitamin B12 766 pg/mL (239-931)
== END 2024-11-16 23:59 | disposition home or self-care (01) ==
LOC: LAB.DROPOF 11-17 10:26
PROVIDERS: PCP Nurse Practitioner Family; Visit Provider Nurse Practitioner Family
DX: E21.3 Hyperparathyroidism, unspecified (principal); R79.89 Other specified abnormal findings of blood chemistry; E78.5 Hyperlipidemia, unspecified; E11.9 Type 2 diabetes mellitus without complications; E53.8 Deficiency of other specified B group vitamins
CPT/HCPCS: 80053; 80061; 82306; 82607; 83036; 83735; 84443; 85025

== ENCOUNTER 2024-12-10 14:16 | Outpatient (CLI) | payer SELFPAY ==
--- OUTSIDE RECORDS SUMMARY | 2024-12-10 14:18 | XMS_ITS | Data Portability ---
Author Organization [facility] Renner MILLY Finley [place] [facility] Address [address] [facility] [address] [place] [address] Assessment No assessment recorded. Plan of Treatment Reminders Order Date Submit Date Provider Last Modified By Organization Details Last Modified Time Details Appointments ANNUAL HEALTH CARE / MEDICAL JOB TITLES 2024 03:00P M MICHAEL BOYLE NEEDLE LOOM SETTER Not available Not available Not available Lab pap, LB 2023 024 [facility], [address] [place] [address], [address], 04/21/2024 15:12:34 HPV DNA, high-ri sk 2023 024 [facility], [address] [place] [address], [address], 04/17/2024 13:18:13 pap, LB 2022 023 [facility], [address] [place] [address], [address], 04/17/2023 14:34:43 HPV DNA, high-ri sk 2022 023 [facility], [address] [place] [address], [address], 04/16/2023 11:42:50 cytolog y, vaginal /cervic al 2021 022 [facility], [address] [place] [address], [address], 04/09/2022 11:21:32 creatin ine, serum or plasma [address] [facility], [address] [place] [address], [address], 11/21/2021 15:00:59 bun (blood urea nitroge n), serum or plasma [address] [facility], [address] [place] [address], [address], 11/21/2021 15:00:59 CT + NG RNA, PCR, unspeci fied specime n 2020 021 [facility], [address] [place] [address], [address], 03/31/2021 15:45:14 cytolog y, vaginal /cervic al 2020 021 [facility], [address] [place] [address], [address], 03/31/2021 16:52:32 Referral None recorde d. Procedures None recorde d. Surgeries None recorde d. Imaging MRI, breast, bilater al, w/wo contras t [address] [facility], [address] [place] [address], [address], 10/01/2024 10:50:08 MAMMO, screeni ng, tomosyn thesis, bilater al, w/ CAD [address] [facility], [address] [place] [address], [address], 12/09/2024 06:26:02 MAMMO, screeni ng, tomosyn thesis, bilater al, w/ CAD 2022 023 [facility], [address] [place] [address], [address], 07/18/2023 15:32:15 MRI, breast, bilater al, w/wo contras t 2022 023 [facility], [address] [facility], [place], [address], 05/12/2023 11:06:38 MRI, breast, bilater al, w/wo contras t 2020 022 [facility], [address] [place] [address] , [place], [address], 11/27/2021 15:31:33 MAMMO, screeni ng, tomosyn thesis, [facility], w/ CAD 2020 021 [facility], [address] [place] [address] , [place], [address], 08/08/2021 10:48:29 Medication Orders None recorde d. Patient TargetsNo targets recorded. Patient Instructions Encounter Date Encounter Id Patient Instructions Last Modified By Organization Details Last Modified Time 03/29/2021 [id number] learning about cervical cancer screening Not available 03/29/2021 15:59:59 46 yo here today for annual exam Normal exam, pap with reflex HPV of the cuff - if normal, continue yearly paps through 2024 STD screening performed -will notify her with those results Schedule mammo - after 05/25/21, will also go on and order MRI to activate in November 2021 - will need insurance benefit info on that as well. Colonoscopy up to date RTC 1 year annual, PRN Not available 03/29/2021 16:04:56 04/03/2022 [id number] learning about cervical cancer screening Not available 04/03/2022 16:02:46 47 yo here today for annual exam Normal exam, pap with reflex HPV of the cuff - if normal, continue yearly paps through 2024 Mammo up to date Colonoscopy up to date RTC 1 year annual, PRN - may be in [place] by then. Not available 04/03/2022 16:06:25 04/11/2023 [id number] medical record request* [email or web address] Not available 04/12/2023 09:55:49 Reason for Referral None Reported. Results Created Date Observation Date Name Description Value Unit Range Abnormal Flag Note LastModifiedBy Organization Detail LastModifiedTime 03/29/20 21 03/31/2021 CHLAM YDIA/ GC, RNA chlamydia trachomatis NOT DETECT ED not detect ed normal Not Available [facility] [address] [place] [address], [phone], 03/31/2021 15:45:13 03/29/20 21 03/31/2021 CHLAM YDIA/ GC, RNA N. gonorrhoeae NOT DETECT ED not detect ed normal Not Available [facility] [address] [place] [address], [address], 03/31/2021 15:45:13 03/29/20 21 03/31/2021 CHLAM YDIA/ GC, RNA comment SEE BELOW normal The sigifredo tical perfo rmanc e ayana cteri stics of this assay , when used to test SureP ath(T M) speci mens have been deter mined by [facility]. The modif icati ons have not been clear ed or appro marcus by the FDA. This assay has been valid ated pursu ant to the CLIA regul ation s and is used for clini jeovany purpo ses. For addit ional infor crystal wen e refer to https ://ed ucati on.qu estdi ADITU SAS tics. com/f aq/FA H054 (This link is being provi ded for infor mc leon/ educa gio l purpo ses only. ) TEST PERFO RMED AT: [facility] [place] [address] [facility] [place] [phone] ISRRAEL Shannon MD Not Available [facility] [address] [place], [address], 03/31/2021 15:45:13 03/29/20 21 03/29/2021 PAP SMEAR Pap smear SEE BELOW Depar tment of Patho logy GYNEC OLOGI JEOVANY CYTOL OGY REPOR T NAME: SHANTI ALLISON PATHO LOGY NO.: [id number] Copy to: SOURC E OF SPECI MEN: VAGIN AL-TH IN PREP RELEV ANT HISTO RY: No LMP given . Hyste recto my: Y Comme nt: SEND FOR HPV IF ASCUS DOING YEARL Y PAPS THROU GH 2024 SPECI MEN ADEQU ACY SATIS FACTO RY FOR EVALU ATION . VAGIN AL SMEAR GENER AL CATEG ORIZA TION NEGAT VERONICA FOR INTRA EPITH ELIAL LESIO N OR JOSE [address]ODRIGUEZ RD, CT (ASCP ) Nimco d Out Date: 03/31 16:51 Cervi jeovany/v agina l cytol ogy is a scree elías test with a recog nized false negat veronica rate. New techn ologi es may decre ase, but will not elimi kieran false negat veronica resul ts. Regul ar cytol ogy scree elías is recom lexus d to minim ize false negat veronica resul ts. The ThinP rep(R ) Imagi ng syste m is used to navdeep t in prima ry cervi jeovany cance r scree elías of ThinP rep(R ) Pap test slide s. Page 1 of 1 Not Available [facility] [facility], [place], [address], 03/31/2021 16:52:32 04/03/20 22 04/03/2022 PAP SMEAR Pap smear SEE BELOW Depar tment of Patho logy GYNEC OLOGI JEOVANY CYTOL OGY REPOR T NAME: SHANTI ALLISON PATHO LOGY NO.: [id number] Copy to: SOURC E OF SPECI MEN: CERVI JEOVANY/E NDOCE RVICA L-THI N PREP RELEV ANT HISTO RY: No LMP given . Comme nt: SEND FOR HPV IF ASCUS SPECI MEN ADEQU ACY SATIS FACTO RY FOR EVALU ATION ENDOC ERVIC AL/TR ANSFO RMATI ON ZONE COMPO NENT ABSEN T GENER AL CATEG ORIZA TION NEGAT VERONICA FOR INTRA EPITH ELIAL LESIO N OR MALIG LYDIA LAVONNE J MAG[address] RD, CT (ASCP ) Nimco d Out Date: 04/09 11:20 Cervi jeovany/v agina l cytol ogy is a scree elías test with a recog nized false negat veronica rate. New techn ologi es may decre ase, but will not elimi kieran false negat veronica resul ts. Regul ar cytol ogy scree elías is recom lexus d to minim ize false negat veronica resul ts. The ThinP rep(R ) Imagi ng syste m is used to navdeep t in prima ry cervi jeovany cance r scree elías of ThinP rep(R ) Pap test slide s. Page 1 of 1 Not Available [facility] [address] [place] [address], [place], [address], 04/09/2022 11:21:32 04/11/20 23 04/16/2023 HPV, HIGH RISK high risk HPV Negati ve negati ve normal This assay detec ts E6/E7 viral messe nger RNA (mRNA ) from 14 high- risk HPV types (16,1 8,31, 33,35 ,39,4 5,51, 52,56 , 58,59 ,66,6 8) witho ut diffe renti ation . Sensi tivit y may be affec ottoniel by speci men colle ction metho ds, stage of infec tion, and the prese nce of inter ferin g subst ances . Resul ts shoul d be inter prete d in conju nctio n with other avail able labor atory and clini jeovany data. A negat veronica Aptim a HPV assay resul t does not exclu de the possi bilit y of cytol ogic abnor malit ies or futur e or under lying CIN2, CIN3, or cance r. This test is inten ded for medic al purpo ses and has not been evalu ated in cases of suspe cted abuse . This assay is not inten ded for use as a scree elías devic e for women under age 30 with dario l cervi jeovany cytol ogy. The Aptim a HPV assay is not inten ded to subst itute for regul ar cervi jeovany cytol ogy. Not Available [facility] [address] [place], [address], 04/16/2023 11:42:50 04/11/20 23 04/11/2023 PAP SMEAR Pap smear SEE BELOW normal Depar tment of Patho logy GYNEC OLOGI JEOVANY CYTOL OGY REPOR T NAME: SHANTI ALLISON PATHO LOGY NO.: [id number] Copy to: [facility] E OF SPECI MEN: VAGIN AL-TH IN PREP RELEV ANT HISTO RY: No LMP given . Hyste recto my: Y Comme nt: HPV CO-TE STING SPECI MEN ADEQU ACY SATIS FACTO RY FOR EVALU ATION . VAGIN AL SMEAR GENER AL CATEG ORIZA TION NEGAT VERONICA FOR INTRA EPITH ELIAL LESIO N OR MALIG LYDIA RELAT ED LABOR ATORY RESUL TS Test Name Resul t Colle cted D and T HIGH RISK HPV Negat veronica 2022 15:[address], CT (ASCP ) Nimco d Out Date: 04/17 14:34 Cervi jeovany/v agina l cytol ogy is a scree elías test with a recog nized false negat veronica rate. New techn ologi es may decre ase, but will not elimi kieran false negat veronica resul ts. Regul ar cytol ogy scree elías is recom lexus d to minim ize false negat veronica resul ts. The ThinP rep(R ) Imagi ng syste m is used to navdeep t in prima ry cervi jeovany cance r scree elías of ThinP rep(R ) Pap test slide s. Page 1 of 1 Not Available [facility] [address] [place], [address], 04/17/2023 14:34:43 04/15/20 24 04/17/2024 HPV, HIGH RISK high risk HPV Negati ve negati ve normal This assay detec ts E6/E7 viral messe nger RNA (mRNA ) from 14 high- risk HPV types (16,1 8,31, 33,35 ,39,4 5,51, 52,56 , 58,59 ,66,6 8) witho ut diffe renti ation . Sensi tivit y may be affec ottoniel by speci men colle ction metho ds, stage of infec tion, and the prese nce of inter ferin g subst ances . Resul ts shoul d be inter prete d in conju nctio n with other avail able labor atory and clini jeovany data. A negat veronica Aptim a HPV assay resul t does not exclu de the possi bilit y of cytol ogic abnor malit ies or futur e or under lying CIN2, CIN3, or cance r. This test is inten ded for medic al purpo ses and has not been evalu ated in cases of suspe cted abuse . This assay is not inten ded for use as a scree elías devic e for women under age 30 with dario l cervi jeovany cytol ogy. The Aptim a HPV assay is not inten ded to subst itute for regul ar cervi jeovany cytol ogy. Test metho dolog y is Nucle ic Acid Ampli ficat ion (NAAT ) Not Available [facility] [address] [place] [address], [place], [address], 04/17/2024 13:18:13 04/15/20 24 04/15/2024 PAP SMEAR Pap smear SEE BELOW normal Depar tment of Patho logy GYNEC OLOGI JEOVANY CYTOL OGY REPOR T NAME: SHANTI ALLISON E PATHO LOGY NO.: [id number] Copy to: SOURC E OF SPECI MEN: VAGIN AL-TH IN PREP RELEV ANT HISTO RY: No LMP given . Hyste recto my: Y Comme nt: HPV CO-TE STING SPECI MEN ADEQU ACY SATIS FACTO RY FOR EVALU ATION . VAGIN AL SMEAR GENER AL CATEG ORIZA TION NEGAT VERONICA FOR INTRA EPITH ELIAL LESIO N OR MALIG LYDIA RELAT ED LABOR ATORY RESUL TS Test Name Resul t Colle cted D and T HIGH RISK HPV Negat veronica 2023 16:[address], CT (ASCP ) Nimco d Out Date: 04/21 15:12 Cervi jeovany/v agina l cytol ogy is a scree elías test with a recog nized false negat veronica rate. New techn ologi es may decre ase, but will not elimi kieran false negat veronica resul ts. Regul ar cytol ogy scree elías is recom lexus d to minim ize false negat veronica resul ts. The ThinP rep(R ) Imagi ng syste m is used to navdeep t in prima ry cervi jeovany cance r scree elías of ThinP rep(R ) Pap test slide s. Page 1 of 1 Not Available [facility] [address] [facility], [place], [address], 04/21/2024 15:12:34 11/28/19 22 11/27/2021 MAMMO , scree elías, tomos ynthe sis, bilat eral, w/ CAD [address] [place] [address] Patimarino t Name: ENID hairston : [phone] Age: 46 years Patien t Orderi ng Provid er: STEFAN GOMEZ EXAM DATE: 2021 EXAM: MG SCREEN ING JA MAMMOG JESSICA INDICA TION: Screen ing. Histor y of breast cancer treate d with breast conser ving therap y. PROCED URE: Multis lice imagin g of both breast s was perfor med in standa rd projec tions using Hologi c Seleni a Dimens ions tomosy nthesi s equipm ent (3D mammog miguel angel) . 2D images were create d from the 3D datase t using C-View softwa re. The study was read with the assist ance of Comput er Aided Detect ion (CAD) softwa re. COMPAR EMPERATRIZ: This was compar ed with previo us mammog darrel dated 2019, 2018, 2017 FINDIN GS: The breast s are hetero geneou sly dense. This may lower the sensit ivity of mammog miguel angel. There is no suspic ious mass or cluste r of calcif icatio ns. No guy ectura l distor tion. Areas of tissue asymme try again noted bilate rally. The patter n is unchan ged. IMPRES RAMIREZ: BI-RAD S catego ry 2, Benign . 1. There is no eviden ce of malign bree. Screen ing mammog darrel are recomm ended in one year. 2. This patien t has risk factor s for breast cancer includ ing . Her calcul ated lifeti me risk of develo ping breast cancer is higher than 20% using the christen Avilaer- Cuzick risk-a ssessm ent model (versi on 8: densit y-info rmed score) . Adjunc tive screen ing is recomm ended with breast MRI per [facility] y guidel amilcar. Result s were mailed or given to the patien t. Interp reted By: Salomón Brown MD Electr onical ly Signed By: Salomón Brown MD on 022 1:37 PM [facility] [address] , [place], [address], 11/30/2021 16:56:32 11/28/19 22 11/27/2021 MRI, rei yovannyelke, w/wo contr ast [address] [address] Patimarino t Name: ENID Carrillo t : 975 Patien t Orderi ng Provid er: STEFAN GOMEZ EXAM DATE: 2021 EXAM: MR ADRIEN BREAST W/WO CONTRA ST HISTOR Y: Strong family histor y of breast cancer PROCED URE: MRI of the breast s. COMPAR EMPERATRIZ: Ultras ound 2017, mammog miguel angel 01/19/20 16 The patien t did not requir e sedati on for this exam. No POC testin g for eGFR was perfor med due to absenc e of risk factor s. TECHNI QUE: MRI of the breast s was perfor med with standa rd depart mental protoc ol includ ing imagin g before and after admini strati on of 7.[address] intrav enous gadoli nium contra st accord ing to the [facility] cturer 's weight -based algori thm for contra st dosage . ([facility] [place] [address]- 325-11 ). Homeru m intens ity projec tion images and 3-D reform atted images were create d for furthe r evalua tion. Additi onally dynami c contra st enhanc ement was evalua ottoniel with the help of CADstr eam postpr ocessi ng softwa re. FINDIN GS: Patien t has hetero geneou sly dense breast tissue . Follow ing intrav enous minist ration gadoli nium suspen ramirez, mild physio logica l backgr ound enhanc ement is presen t. Scatte red tiny subcen timete r cysts are presen t bilate rally. There is no suspic ious area of enhanc ement/ rapid washou t. There are bilate ral small axilla ry lymph nodes althou gh they have benign morpho logy. There are no extram ammary abnorm alitie s presen t IMPRES RAMIREZ: BI-RAD S catego ry 2, Benign . Recomm end yearly follow -up screen ing mammog miguel angel Interp reted By: Salomón Brown MD Electr onical ly Signed By: Salomón Brown MD on 022 3:26 PM [email or web address] [address] [place], [address], 11/28/2021 15:09:49 04/12/20 23 08/16/2022 MRI, thora cic spine , w/ contr ast No observ ation record ed. [email or web address] [facility] [address], [place], [address], 04/25/2023 11:07:56 04/25/2005/06/2022 MAMMO , scree elías, tomos ynthe sis, bilat eral, w/ CAD No observ ation record ed. [facility] [address], [place], [address], 05/02/2023 14:40:28 05/12/20 23 05/10/2023 MRI, rei hairston, adrienat eral, w/wo contr ast [place] [facility] [address] [facility] [place] [address] Patien t Name: ENID TURK Patimarino t : [phone] Age: 48 years Patien t Orderi ng Provid er: MICHAEL ST GTON EXAM DATE: 2022 EXAM: MR ADRIEN BREAST W/WO CONTRA ST HISTOR Y: Strong family histor y of breast cancer PROCED URE: MRI of the breast s. COMPAR EMPERATRIZ: 022 The patien t did not requir e sedati on for this exam. A baseli ne serum creati nine with eGFR was obtain ed prior to inject ion of contra st medium due to the patien ts risk factor s for JEAN. Calcul ated eGFR at time of exam was GFR 69 TECHNI QUE: MRI of the breast s was perfor med with standa rd depart mental protoc ol includ ing imagin g before and after admini strati on of 7.[address] intrav enous gadoli nium contra st accord ing to the [facility] cturer 's weight -based algori thm for contra st dosage . ([facility] [place] [address]- 325-11 ). Maximu m intens ity projec tion images and 3-D reform atted images were create d for furthe r evalua tion. Additi onally dynami c contra st enhanc ement was evalua ottoniel with the help of CADstr eam postpr ocessi ng softwa re. FINDIN GS: The breast s are hetero geneou sly dense. Follow ing intrav enous admini strati on of gadoli nium suspen ramirez, there is mild backgr ound physio logica l enhanc ement. Scatte red puncta te cysts are presen t in both breast s. Small benign -appea ring bilate ral axilla ry nodes. No extram ammary abnorm ality. Stable exam IMPRES RAMIREZ: BI-RAD S catego ry 2, Benign . Sugges t yearly follow -up screen ing mammog miguel angel and adjunc tive MRI if the patien t contin ues to qualif y her ACS guidel amilcar Interp reted By: Salomón Brown MD Electr onical ly Signed By: Salomón Brown MD on 2022 11:01 AM [facility] [address] [place] [address], [address], 05/13/2023 18:37:31 07/18/19 24 07/18/2023 MAMMO , scree elías, tomos ynthe sis, bilat eral, w/ CAD [place] [address] [place] [address] Lorena hairston Name: ENID hairston : [phone] Age: 48 years Lorena hairsotn Orderi ng Provid er: MICHAEL ST GTON EXAM DATE: 2023 EXAM: MG SCREEN ING JA MAMMOG JESSICA INDICA TION: Routin e screen ing. PROCED URE: Multis lice imagin g of both breast s was perfor med in standa rd projec tions using Hologi c Seleni a Dimens ions tomosy nthesi s equipm ent (3D mammog miguel angel) . 2D images were create d from the 3D datase t using C-View NoveltyLabwa re. The study was read with the assist ance of Comput er Aided Detect ion (CAD) softwa re. COMPAR EMPERATRIZ: This was compar ed with previo us mammog darrel dated 2021, 2019, 2018 FINDIN GS: The breast s are hetero geneou sly dense. This may lower the sensit ivity of mammog miguel angel. No suspic ious masses , calcif icatio ns, or guy ectura l distor tion in either breast . IMPRES RAMIREZ: BI-RAD S catego ry 1, Negati ve. There is no eviden ce of malign bree. Screen ing mammog darrel are recomm ended in one year. Result s were mailed or given to the patien t. Interp reted By: Emil Augustin Electr onical ly Signed By: Emil Augustin on 07/18/19 24 3:27 PM [facility] [address] [place], [address], 07/19/2023 15:51:20 Result Notes None recorded. Problems Name Problem SNOMED Code Status Onset Date Resolution Date Notes Provider Name and Address Organization Details Recorded Time Urinary tract infectious disease 36808431 Active 2015 From Automated Load;Provi shobha: Beiting, Stefania;S tatus: Active Not Available [facility] 6 03:56:29 Cyst of ovary 45205387 Active 2015 From Automated Load;Provi shobha: Beiting, Stefania;S tatus: Active Not Available [facility] 6 03:56:29 Problem Notes None recorded. Procedures Surgical History Date Name Laterality Status Provider Name and Address Organization Details Recorded Time 024 Pap Smear collection completed MICHAEL BOYLE, NEEDLE LOOM SETTER [address] [place], [address], [facility] 04/15/2024 15:55:40 023 Pap Smear collection completed MICHAEL BOYLE, NEEDLE LOOM SETTER [address] [place], [address], [facility] 04/11/2023 15:43:20 023 Date of Last Pap Smear completed Katty [facility] 04/15/2024 09:45:53 022 Airway Resistance completed [facility] 01/08/2022 14:35:00 022 Diffusion Capacity completed [facility] 01/08/2022 14:34:56 022 Lung Volumes, Plethysmography completed [facility] 01/08/2022 14:35:02 022 Demonstration Aerosol/Generator/ Nebulizer/Opticham jess completed Mattie Hannon [facility] 01/08/2022 14:41:59 022 Spirometry completed [facility] 01/08/2022 14:35:05 022 Date of Last Mammogram completed SHAAN GOMEZ PA-C [address] [place], [address], [facility] 04/03/2022 11:33:50 020 ROBOTIC ASSISTED HYSTERECTOMY WITH SALPINGECTOMY (SURG) completed Tere Birminghamley [facility] 06/01/2020 15:10:26 020 Colonoscopy completed Mackenzie Campuzanoley [facility] 01/12/2020 10:28:29 019 Transvaginal Ultrasound; Non-OB completed STEFANIA CENTENO MD [address] [place], [address], [facility] 04/30/2019 12:42:57 018 Suture/Staple removal completed Jimi Whelan [facility] 03/31/2018 10:02:58 018 Wound Repair; Intermediate completed DAMEON MULLINS DO [address] [place], [address] 03/21/2018 10:17:34 018 Excision BN Lesion; scalp, neck, hands, feet, genitalia completed DAMEON MULLINS DO [address] [place], [address], [facility] 03/21/2018 10:17:29 014 Other completed Aubrie Appiah [facility] 03/05/2018 11:03:13 Other completed Aubrie Appiah [facility] 03/05/2018 10:57:08 delivery completed Aubrie crow [facility] 03/05/2018 10:57:16 Removal of tonsils completed Aubrie abdullahi [facility] 03/05/2018 10:57:24 Other completed Aubrie Appiah [facility] 03/05/2018 10:57:45 Other completed Aubrie Appiah [facility] 03/05/2018 10:57:52 Imaging Results None recorded. Procedure Notes None recorded. Medical Equipment None Reported. Allergies No known drug allergies Medications Name Sig Start Date Stop Date Status Note LastModified by Organization Details LastModified Time atorvasta tin 40 mg tablet Take 1 tablet every day by oral route. active Not Available Not Available No t Available metformin 500 mg tablet Take 1 tablet twice a day by oral route. 01/08 completed Not Available Not Available Not Available azelastin e 0.05 % eye drops INSTILL 1 DROP INTO AFFECTED EYE(S) BY OPHTHALM IC ROUTE 2 TIMES PER DAY 04/15 completed Not Available Not Available Not Available Keflex 500 mg capsule Take 1 capsule twice a day by oral route for 7 days. 03/31 completed Not Available Not Available Not Available sumatript an 50 mg tablet Take by oral route. active prn Not Available Not Available No t Available phentermi ne 37.5 mg tablet Take 1 tablet every day by oral route. 04/15 completed Not Available Not Available Not Available Mircette (28) 0.15 mg-0.02 mg (21)/0.01 mg (5) tablet Daily 01/12 completed Instruct ions: Quantity 1 pack, use one pill daily;Fr equency: daily;Me dication Descript ion: desogest rel-ethi nyl estradio l; Dosage:1 ; Route:or al; refills: 12; Quantity :1 tablet Not Available Not Available Not Available tramadol 50 mg tablet 03/05 completed Medicati on Descript ion: tramadol ; Route:or al; refills: 0 Not Available Not Available Not Available phentermi ne 30 mg capsule 03/04 completed Medicati on Descript ion: phenterm ine; Route:or al; refills: 0 Not Available Not Available Not Available Macrobid 100 mg capsule Daily 03/05 completed Instruct ions: use one tablet po after intercou rse.;Hugo quency: daily;Me dication Descript ion: nitrofur antoin; Dosage:1 ; Route:or al; refills: 1; Quantity :30 capsule Not Available Not Available Not Available Mobic 15 mg tablet Daily active Frequenc y: daily;Me dication Descript ion: meloxica m; Dosage:1 ; Route:or al; refills: 5; Quantity :30 tablet Not Available Not Available Not Available Zofran 4 mg tablet Take 1 tablet every 4-6 hours by oral route. 04/15 completed Not Available Not Available Not Available dicyclomi ne 20 mg tablet Take 1 tablet 4 times a day by oral route. 04/03 completed Not Available Not Available Not Available monteluka st 10 mg tablet Take 1 tablet every day by oral route. active Not Available Not Available No t Available ibuprofen 600 mg tablet Take 1 tablet 3 times a day by oral route. 04/03 completed Not Available Not Available Not Available [place] 5 mg-325 mg tablet Take 1 tablet every 6 hours by oral route. 08/31 completed Not Available Not Available Not Available magnesium active prn Not Available Not Ashwini ilable Not Available zinc active Not Available Not Availa ble Not Available tramadol 04/15 completed Not Available Not Available Not Available ropinirol e active prn Not Available Not Available Not Available baclofen active Not Available Not Avai lable Not Available Xanax Daily 04/11 completed Duration : 20 days;Hugo quency: daily;Al t Frequenc y: prn;Medi cation Descript ion: alprazol am; Dosage:1 ; Route:or al; refills: 0; Quantity :20 tablet Not Available Not Available Not Available Soma As Directed 04/11 completed Duration : 60 days;Hugo quency: as direct.; Alt Frequenc y: prn;Medi cation Descript ion: carisopr odol; Dosage:1 ; Route:or al; refills: 0; Quantity :90 tablet Not Available Not Available Not Available benzonata te 04/15 completed Not Available Not Available Not Available ProAir HFA 90 mcg/actua tion aerosol inhaler 04/15 completed Medicati on Descript ion: albutero l; Route:in halation ; refills: 0 Not Available Not Available Not Available levocetir izine 5 mg tablet Take 1 tablet every day by oral route. active Not Available Not Available No t Available Fish Oil [place] 3-6-9 2 daily active Not Available Not Available Not Available fenofibra te 40 mg tablet Take 2 tablets every day by oral route. 04/15 completed Not Available Not Available Not Available Suprep Bowel Prep Kit 17.5 gram-3.13 gram-1.6 gram oral solution Take 177 mL by oral route as directed . 02/10 completed Not Available Not Available Not Available Vascepa 01/08 completed Not Available Not Available Not Available Trulance 3 mg tablet Take 1 tablet every day by oral route. active prn Not Available Not Available No t Available Ozempic 0.25 mg or 0.5 mg (2 mg/1.5 mL) subcutane ous pen injector Inject by subcutan eous route. 04/15 completed Not Available Not Available Not Available turmeric 2 daily active Not Available Not Ashwini ilable Not Available ashwagand lamas root extract 2-4 daily as needed active Not Available Not Available No t Available Mounjaro 12.5 mg/0.5 mL subcutane ous pen injector Inject every week by subcutan eous route. active Not Available Not Available No t Available Vitals Date Recorded Body height Body mass index (BMI) Body weight Oxygen saturation Oxygen saturation in Arterial blood by Pulse oximetry Heart rate Systolic blood pressure Diastolic blood pressure Provider Name and Address Organization Details Last Updated DateTime 2 162.56 cm 30.4 kg/m2 73647.8 5 g 95 % 95 % 88 /min 118 mm[Hg] 70 mm[Hg] Val Gar [facility] [place] 2 14:18:05 Date Recorded Body height Body mass index (BMI) Body weight Systolic blood pressure Diastolic blood pressure Provider Name and Address Organization Details Last Updated DateTime 03/29/2021 162.56 cm 31.1 kg/m2 07542.22 g 114 mm[Hg] 78 mm[Hg] Dukejeremy Estrada [facility] [place] 1 15:27:23 Date Recorded Body height Body mass index (BMI) Body weight Systolic blood pressure Diastolic blood pressure Provider Name and Address Organization Details Last Updated DateTime 04/03/2022 162.56 cm 30.4 kg/m2 75876.85 g 112 mm[Hg] 78 mm[Hg] Ariadne Guzman [facility] [place] 2 15:40:02 Date Recorded Body mass index (BMI) Body weight Provider Name and Address Organization Details Last Updated DateTime 04/11/2023 29.4 kg/m2 91617.3 g MICHAEL BOYLE, NEEDLE LOOM SETTER [address] [place], [address] 04/11/2023 15:42:17 Date Recorded Body height Systolic blood pressure Diastolic blood pressure Provider Name and Address Organization Details Last Updated DateTime 04/11/2023 162.56 cm 118 mm[Hg] 84 mm[Hg] Miriam Hughes [facility] 04/11/2023 14:57:45 Date Recorded Body height Body mass index (BMI) Body weight Systolic blood pressure Diastolic blood pressure Provider Name and Address Organization Details Last Updated DateTime 04/15/2024 162.56 cm 26.6 kg/m2 20506.22 g 122 mm[Hg] 70 mm[Hg] [facility] [place] 15:18:47 Social History Question Answer Notes LastModified by Organizat ion Details LastModified Time Tobacco Smoking Status Former [facility]oker 2004 [facility]/11/2020 13:09:31 Marital Status Informatio n not available 03/05/2018 What Was The Date Of Your Most Recent Tobacco Screening? 04/11/2023 [email or web address] Information not available 04/11/2023 Sex: Female Functional Status None recorded. Mental Status None recorded. Family History Relationship Description Onset Age of this Age Resolved Age Notes LastModified by Organization Details LastModified Time Mother Family history of malignant neoplasm Cervic al cancer Not available 03/05/2018 10:58:51 Mother Diabetes mellitus Not available 2017 10:59:41 Mother Hyperlipidem ia Not available 2017 10:59:56 Maternal Aunt Family history of malignant neoplasm Breast cancer Not available 03/05/2018 10:58:52 Maternal Grandmother Myocardial infarction Not available 03/05 10:59:00 Maternal Grandmother Diabetes mellitus Not available 2017 10:59:41 Maternal Grandmother Hyperlipidem ia Not available 2017 10:59:56 Maternal Grandfather Cerebrovascu lar accident Not available 10:59:12 Maternal Grandfather Diabetes mellitus Not available 2017 10:59:41 Maternal Grandfather Hyperlipidem ia Not available 2017 10:59:56 Maternal Grandfather Malignant melanoma [email or web address] Not available 2017 17:11:30 Paternal Aunt Family history of malignant neoplasm Breast cancer Not available 03/29/2021 15:36:58 Unspecified Relation Family history of malignant neoplasm patern al cousin with breas cancer Not available 03/29/2021 15:37:10 Medical History Condition Response Diabetes Y Other Y Bleeding Disorder N Hyperlipidemia Y Cancer N Stroke N Thyroid Problems N Depression Sleep Apnea N High Cholesterol Y Heart Attack ([place]) N Deep Vein Thrombosis N Hypertension N Gynecological History Statement/Question Response Abnormal Pap Yes Date of Last Mammogram 11/27/2021 Flow Heavy Date of LMP 04/17/2020 Sexually Active? Y Menses Monthly No Date of Last Pap Smear 04/11/2023 Current Control Method Hysterectom y Colonoscopy 08/10/2019 Obstetrics History GPAL:G 4 P 4 0 0 3 Type Value Full Term 4 Living 3 Total 4 Past Encounters Encounter ID Performer Location Encounter Start Date Encounter Closed Date Diagnosis/Indication Diagnosis SNOMED-CT Code Diagnosis ICD10 Code Diagnosis Note [id number] SHAAN GOMEZ PA-C [facility] [address] [place] [address] 03/05/2018 10:50:38 03/05/2018 11:56:53 Discharge from nipple 19238744 N64.52 Routine gy necologic examination done 7436739522 9101 Z01.419 Screening for malignant neoplasm of cervix 872010035 Z12.4 Lesion of vulva 55122791 6 N90.9 [id number] GLYNN CROW PA-C [facility] [address] [place] [address] 03/13/2018 14:34:19 03/14/2018 08:04:51 Dermatofibroma 464646911 D23.9 BENIGN APPEARANCE , PT REASSURED Epidermoid cyst of skin 706537249 L72.0 LEFT MONS PUBIS PT HAS DECOMPRESS ED CYST - NOTHING TO I&D TODAY SHE WOULD LIKE EXCISED TO PREVENT RECURRENCE - DISCUSSED R/B/A WILL SET UP WITH DR. MULLINS Lipoma of thigh 55281648 4 D17.24 BENIGN REASSURANC E SMALL AND ASYMPTOMAT IC - OBSERVE, MAY WISH TO EXCISE IN FUTURE [id number] DAMEON MULLINS DO [facility] [address] [place] [address] 03/21/2018 08:43:12 03/21/2018 12:44:33 Epidermoid cyst of skin 470486860 L72.0 Left mons pubis/late ral labial area Discussed diagnosis of epidermoid cyst recommend treatment with excision r/a/b of procedure discussed with patient informed consent signed see procedure note f/u 10 days for wound check / suture removal due to location- keflex Rx for infection prevention Pain of skin 580883147 R 52 cyst [id number] DAMEON MULLINS DO [facility] [address] [place] [address] 03/31/2018 09:57:59 03/31/2018 10:10:35 Removal of suture 96381664 Z48.02 s/p excision of cyst sutures removed without incident no redness, drainage, streaking- healing well [id number] SHAAN GOMEZ PA-C HEALTH CARE / MED[facility] JOB TITLES [facility] [address] [place] [address] 03/25/2019 11:04:00 03/25/2019 13:09:27 Routine gynecologic examination done 9133724909 9101 Z01.419 Screening for malignant neoplasm of cervix 826530892 Z12.4 History of dysplasia of cervix 849220214 Z87.410 Screening for malignant neoplasm of breast 507670058 Z12.31 On a Wed between 10-12 if they do screening then Acute urin kelly tract infection 608852055 N39.0 resolved [id number] STEFANIA CENTENO MD HEALTH CARE [facility] MED[facility] JOB TITLES [facility] [address] [place] [address] 04/30/2019 09:35:06 04/30/2019 10:57:11 Left lower quadrant pain 362133026 R10.32 Patient continues to have some vague left lower quadrant pains. Nothing by ultrasound can explain this and I'm not sure this is gynecologi c. I will send her to GI for colonoscop y. The patient will come off her control pills since this can worsen pancreatit is. I recommende d she not go back on this type hormonal medication s. If for some reason her gynecologi c problems worsen then she may want to do the hysterecto my since hormones are not such a good idea. 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 She does not want hysterecto my for now. Will just follow. Menorrhagia 427929625 N9 2.0 Currently is off her hormonal medication because of her intermitte nt pancreatit is. Pain in pelvis 65132326 R10.2 Patient has had intermitte nt recurring lower pelvic pain since 2013. At that surgery there was no endometrio sis seen. She does have the uterine septum. She currently is not complainin g of any significan t pain. The last transvagin al ultrasound from 2019 was normal. You cannot tell that the patient has a uterine septum by ultrasound only by the hysterosco py which was done in 2013. [id number] SHAAN GOMEZ PA-C HEALTH CARE / MED[facility] JOB T[facility]LES [facility] [address] [address] 04/06/2020 10:47:05 04/06/2020 11:45:09 Routine gynecologic examination done 5757181121 9101 Z01.419 Screening for malignant neoplasm of cervix 385754834 Z12.4 Screening for malignant neoplasm of breast 990120382 Z12.31 On a Wed between 10-12 Menorrhagia 879206327 N9 2.0 [id number] STEFANIA CENTENO MD HEALTH CARE / MEDICAL JOB TITLES [facility] CL[facility] [address] [place] [address] 05/12/2020 10:32:09 05/12/2020 11:13:37 Postoperative care 668477174 Z48.89 risk of surgery given. pt agrees and consent. . npo after midnight. has ibs C. do a bowel cleansing. night before.ris k of surgery discussed. lpt does not want a midline abodminal incision. leave ovaries if normal. check the left ovary since doese have 'more problems from that one and okay to take it out if questionab le. [id number] STEFANIA CENTENO MD HEALTH CARE / MEDICAL JOB TITLES [facility] CLOS[facility] [address] [place] [address] 06/20/2020 13:00:32 06/20/2020 13:34:11 Abdominal pain 88056001 R10.9 exam benign but think she is dong too much right now. 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 recheck. [id number] SHAAN GOMEZ PA-C HEALTH CARE / MEDICAL JOB TITLES [facility] [address] [place] [address] 07/27/2020 10:44:35 07/27/2020 11:31:09 Postoperative visit 873650871 Z09 [id number] SHAAN GOMEZ PA-C HEALTH CARE / MEDICAL JOB TITLES [facility] [address] [place] [address] 08/31/2020 10:42:24 08/31/2020 11:24:03 Postoperative care 252957610 Z48.89 cuff with very slow healing. recommend to still d/c sexual penetratio n. recheck one month. not sure what not healing quickly. non smoker. no steriods or other immune suppressan ts. pt understand s the need to recheck and cont light activity until healed or precaustio ns on rupture and fistula given so she can come in sooner if needed. [id number] SHAAN GOMEZ PA-C HEALTH CARE / MEDICAL JOB TITLES [facility] [address] [place] [address] 09/28/2020 11:07:09 09/28/2020 11:37:30 Postoperative visit 395121806 Z09 [id number] SHAAN GOMEZ PA-C [facility] [address] [place] [address] 03/29/2021 15:14:02 03/29/2021 16:07:24 Gynecologic examination 32385970 Z01.419 Screening for malignant neoplasm of vagina 843242456 Z12.72 Screening for malignant neoplasm of breast 408629182 Z12.31 Saturday or Venereal d isease screening 197237753 Z11.3 Family his tory of breast cancer 955339137 Z80.3 [id number] NICK CHOW MD PULMONARY [address] [facility], [address] [place] [address] 01/08/2022 13:50:25 01/08/2022 16:24:28 Asthma 970162015 J45.909 I will put her on a return to clinic as needed. She has perfectly normal PFTs. Her control is good currently. I do not think she needs both a pulmonolog ist and an regulatory assistant managing her asthma at this point in time. Given her significan t allergy history, I think she is better served by continuing her asthma therapies through her regulatory assistant as they can do desensitiz ation therapy. If this fails to be sufficient , then I would be happy to see her back for evaluation of of asthma Biologics. Allergic rhinitis 403145 04 J30.9 [id number] [place] [address] 04/03/2022 15:14:23 04/03/2022 16:37:23 Gynecologic examination 08791138 Z01.419 Screening for malignant neoplasm of vagina 367861795 Z12.72 [id number] MONICA FULLER [facility] [address] [place] [address] 04/11/2023 14:47:39 04/11/2023 15:35:19 Gynecologic examination 52022248 Z01.419 PAP of vaginal cuff todaywill contact patient with resultspat ient to follow up in one year Screening for malignant neoplasm of vagina 189181988 Z12.72 Heterogene ously dense breast composition 815247090 R92.2 Screening mammogram due nowadjunct MRI screening due at 6 months Family his tory of breast cancer 484023563 Z80.3 family history of breast cancer: maternal aunt: paternal aunt: paternal cousinsee above note Computed t omography result abnormal 520640381 R93.[address] completed at [facility] recently revealed right floating clip from previous tubal ligationwi ll obtain records for reviewadvi sed patient will then review with Dr. Magda smith contact patient if follow up needed Menopausal flushing 1983 36357 N95.1 Discussed risk and benefits of HRT with patientAls o discussed FDA approved Brisdellep atient reports that she is not interested in medication at this time [id number] MICHAEL BOYLE , [facility] [address] [place] [address] 04/15/2024 15:09:46 04/15/2024 15:54:17 Gynecologic examination 06579808 Z01.419 PAP of vaginal cuff todaywill contact patient with resultspat ient to follow up in one year Screening for malignant neoplasm of vagina 040287632 Z12.72 [facility] for malignant neoplasm of breast 1615491248 72623 Z91.89 repeat MRI - adjunct screening Heterogene ously dense breast composition 678641776 R92.2 patient doing adjunct MRI screening Screening for malignant neoplasm of breast 354916394 Z12.39 repeat screening mammogram due after 07/18/24 Nausea and vomiting 1693 1999 R11.2 intermitte nt nausea and vomiting : usually occurs when exercising - advised patient to follow with PCP Health Concerns Section Related Observation LastModified by Organization Detai ls LastModified Time None Recorded Concern Status LastModified by Organization Details LastModified Time None Recorded Advance Directives Directive None Recorded Payers Insurance Date Sequence Insurance Name Policy Number Policy Thompson Covered Member ID Thompson Member ID Guarantor Name 07/18/2024 1 [facility] [id number] Pato pratt [id number] Enid Almazan 06/08/2020 1 [facility] [id number] Robe Goldman a [id number] Enid Almazan 04/26/2020 PAYMENT PLAN Enid Almazan 04/03/2022 1 [facility] [id number] Pato Goldman a [id number] Enid Almazan 03/25/2019 1 [facility] [id number] Robe Goldman a [id number] Enid Almazan 11/04/2023 PAYMENT PLAN Enid Almazan Notes Date Note Type Note Provider Name and Address Organization Details Recorded Time 03/29/2021 text/html 46 yo here today for annual examMother with cervical cancerMaternal aunt with breast cancerPaternal aunt with breast cancer and her daughter with breast cancerNo fam h/o ovarian cancerS/P Robotic hysterectomy with salpingectomy - still some aching on her left side but it is less than it wasH/O LEEP in 2013 - doing yearly paps through 2024Mammo due in May - she is eligible for MRI screening as wellColonoscopy up to date has some profiles out on websites looking for other partners. She would like STD screening today. SHAAN GOMEZ PA-C [facility] [place], [address], [facility] 03/29/2021 16:05:40 01/08/2022 text/html Enid comes in for evaluation of asthma. She says that her chronic asthma and allergies were under very good control until she had COVID in October 2020. She says after that, her allergies became extremely difficult to manage. Consistent sinus drainage and shortness of breath and fatigue. She had to reinitiate allergy therapy and has increased her desensitization to every 3 weeks. She says when she travels outside the [facility] that her symptoms all resolved. She also noticed significant improvement since starting on vitamin B12 shots and vitamin D replacement. She reports having numerous allergies to mold, dust mites, grass pollens, weed pollens and foods. She is on Breo plus Singulair. She has not had to use her albuterol since starting on vitamin replacement. She reports having imaging with 2 granulomas. They were stable on repeat imaging then she says she is scheduled to have another CT scan in 1 year. PFT 01/08/22: No obstruction. No restriction. Normal gas exchange. FEV1 3.27 (113%). FVC 3.90 (109%) ratio 84% TLC 113% DLCO 104% NICK CHOW MD [address] [place], [address], [facility] 01/08/2022 16:12:01 04/03/2022 text/html 47 yo here today for annual examMother with cervical cancerMaternal aunt with breast cancerPaternal aunt with breast cancerPaternal cousin with breast cancerNo fam h/o ovarian or uterine cancerS/P robotic hysterectomy with bilateral salpingectomy in 2019H/o LEEp in 2013, also cryo x4 before age 22. - yearly paps through olonoscopy in 2019 - up to dateMammo and MRI both on 11/27/21 Pt says no issues or concerns.Planning to move to [place] next summer after her son graduates from high school SHAAN GOMEZ PA-C [address] [place], [address], [facility] 04/03/2022 16:06:59 04/11/2023 text/html 48 year old christina pastrana presents today for annual exampreviously seen by Shiva Wheeler PAP: 04/03/22: vaginal cuff: negative with no HPV co testinghistory of LEEP 2014: Cryo times 4 before age 22: yearly PAP through 2024 history of hysterectomy with BSO 2019 - Dr. Degroot mammogram: 11/27/21: benign: heterogeneously dense breast tissueMRI: 11/27/21: benign: heterogeneously dense breast tissuefamily history of breast cancer: maternal aunt: paternal aunt: paternal cousin colon screening: colonoscopy: 08/10/19: normal: repeat 10 years MICHAEL BOYLE APRN [address] [place], [address], [facility] 04/11/2023 15:46:09 04/15/2024 text/html 49 year old christina pastrana presents today for annual WWElast PAP: 04/11/23: vaginal smear: negative with negative HPV co testinghistory of LEEP 2014: Cryo times 4 before age 22: yearly PAP through 2024history of hysterectomy with BSO 2019 - Dr. Mendeziting repeat PAP todaylast mammogram: 07/18/23: BI-RADS category 1, Negative. : heterogeneously dense breast tissueMRI: 05/10/23: BI-RADS category 2, BenignTC score 24.09%family history of breast cancer: maternal aunt: paternal aunt: paternal cousindenies family history of colon, uterine or ovarian cancercolon screening: colonoscopy: 08/10/19: normal: repeat 10 years MICHAEL BOYLE, NEEDLE LOOM SETTER [address] [place], [address], [facility] 04/15/2024 15:56:38 OBGyn Episode No OBEpisode recorded.
--- NOTE | 2024-12-10 14:45 | CT_ITS ---
APPROVED REPORT Bending Machine Set Up Operator: CLINICAL INDICATION Coronary risk evaluation and stratification TECHNIQUE Image Acquisition: A 128 slice MDCT scanner ([employer] View) was used for data acquisition. A noncontrast coronary calcium scan was performed. A CT attenuation threshold of 130 Hounsfield units (HU) was used for the detection of calcium in contiguous voxels of 1 sq mm in area to be counted as individual lesions. A tube voltage of 120 KVp was used. The patient received no medications prior to the coronary calcium CT. Image Reconstruction Transaxial images were reconstructed at 0.67 mm slide thickness. Data was reviewed interactively on an advanced workstation capable of 2 and 3-dimensional displays in all conventional reconstruction formats, including multiplanar reformations, maximum intensity projections, curved multiplanar reformations, and volume rendered reconstructions. When applicable, selected routine images describing the relevant coronary anatomy and pathology were saved and sent to PACS. Complications None Technical Quality Overall image quality was good. Total DLP (Dose-Length Product) is 179.9 mGy-cm. The reported value represents the total of one or more individual components during the CT acquisition of this date and at this time, and as such, the same value may appear in more than one CT report depending on the interpreting/reporting physicians. COMPARISON None FINDINGS CT Coronary Calcium Scoring LMA (Left Main Artery) = 47 LAD (Left Anterior Descending) = 60 LCX (Left Coronary Circumflex) = 6 RCA (Right Coronary Artery) = 0 Total Calcium Score = 113 using the AJ-130 method. There is no identifiable calcification in the aortic valve, mitral annulus or mitral valve, pericardium, or myocardium. IMPRESSION -Coronary artery calcification is present. -Total Calcium Score (Agatston Score) = 113 using the AJ-130 method. -The observed calcium score of 113 is at 99th percentile for subjects of the same age, sex, and race/ethnicity. The interpretation of the calcium heart score is based on the following continuum*: 0 = no calcified plaque detected (risk of coronary artery disease is very low ??? less than 5%) 1-10 = calcium detected in extremely minimal levels (risk of coronary diseases is still low ??? less than 10%) 11-100 = mild levels of plaque detected with certainty (mild or minimal narrowing of heart arteries is likely) 101-400 = definite,at least moderate levels of plaque detected (relatively high risk of a heart attack within 3-5 years) >401-999 = extensive levels of plaque detected (high risk of heart attack, high levels of vascular disease are present, high likelihood of at least one significant coronary narrowing) *The calcium heart score quantifies the burden of coronary calcification/plaque in the coronary arteries. The calcium heart score does not evaluate the presence or the burden of non-calcified (i.e. soft) plaque. The coronary and cardiac findings of this Coronary Calcium CT were reviewed, reported, and signed by Collin Mcdonough MD ([facility]). Conclusion Electronically signed by : Gladys Mcdonough MD 12/12/2024 21:09:46
== END 2024-12-10 23:59 | disposition home or self-care (01) ==
PROVIDERS: PCP Nurse Practitioner Family; Visit Provider Nurse Practitioner Family
DX: I25.10 Atherosclerotic heart disease of native coronary artery without angina pectoris (principal); E21.3 Hyperparathyroidism, unspecified
CPT/HCPCS: 75571

== ENCOUNTER 2024-12-14 16:00 | Outpatient (CLI) | payer BC, SELFPAY ==
[2024-12-14 17:06] LABS: Basophils % 0.5 % (0.1-2.0); Eosinophils % 0.3 % (0.1-12.0); Hematocrit 38.5 % (37.0-47.0); Hemoglobin 12.7 g/dL (12.2-16.2); Immature Granulocytes # 0.01 10^3uL; Immature Granulocytes % 0.2 %; Lymphocytes # 2.9 K/mm3 (0.7-4.5); Lymphocytes % 44.6 % (10-50); Mean Corpuscular Hemoglobin 29.7 pg (27.0-31.2); Mean Platelet Volume 10.8 fl (7.4-10.4); Monocytes # 0.5 K/mm3 (0.1-1.0); Monocytes % 8.3 % (1.7-9.3); Neutrophils % 46.1 % (37.0-80.0); Nucleated Red Blood Cells # 0 10^3/uL; Nucleated Red Blood Cells % 0 %; Platelet Count 258 K/mm3 (142-424); Red Blood Count 4.28 M/mm3 (4.20-5.40); Red Cell Distribution Width 11.9 % (11.5-17.5); Red Cell Distribution Width-SD 38.8 fL; White Blood Count 6.5 K/mm3 (4.8-10.8)
[2024-12-14 18:05] LABS: Alanine Aminotransferase 38 U/L (12-78); Albumin Level 4.5 g/dl (3.5-5.0); Alkaline Phosphatase 55 U/L (38-126); Anion Gap 10.3 mEq/L (5-15); Aspartate Amino Transferase 37 U/L (14-36); Bilirubin,Total 0.6 mg/dl (0.2-1.3); Blood Urea Nitrogen 25 mg/dl (7-17); Calcium 9.4 mg/dl (8.4-10.2); Carbon Dioxide 29 mmol/L (22.0-30.0); Chloride 104 mmol/L (98-107); Estimated Glomerular Filt Rate 67 ml/min (>60); GFR (African American) 81 ML/MIN (>60); Globulin 2.2 g/dL (1.3-3.2); Glucose 74 mg/dl (74-100); Potassium 4.3 mmoL/L (3.5-5.1); Sodium 139 mmol/L (136-145); Total Protein,Serum 6.7 g/dl (6.3-8.2)
--- OUTSIDE RECORDS SUMMARY | 2024-12-15 14:48 | XMS_ITS | Data Portability ---
Author Organization [facility] Bulverde MILLY Finley BUFFALO CLOSED Address [address] [facility] [address] [place] [address] Assessment No assessment recorded. Plan of Treatment Reminders Order Date Submit Date Provider Last Modified By Organization Details Last Modified Time Details Appointments ANNUAL [facility] [employer]WORKER 2024 03:00P M MICHAEL BOYLE SPECIAL NEEDS LIBRARIAN Not available Not available Not available Lab pap, LB 2023 024 [facility], [address] [place] [address], [address], 04/21/2024 15:12:34 HPV DNA, high-ri sk 2023 024 [facility], [address] [place] [address], [address], 04/17/2024 13:18:13 pap, LB 2022 023 [facility], [address] [place] [address], [address], 04/17/2023 14:34:43 HPV DNA, high-ri sk 2022 023 [facility], [address] [place] [address], [address], 04/16/2023 11:42:50 cytolog y, vaginal /cervic al 2021 022 [facility], [address] [place] [address], [address], 04/09/2022 11:21:32 creatin ine, serum or plasma [address] [facility], [address] [place] [address], [address], 11/21/2021 15:00:59 bun (blood urea nitroge n), serum or plasma [address] [facility], [address] [place] [address], [address], 11/21/2021 15:00:59 CT + NG RNA, PCR, unspeci fied specime n 2020 021 [facility], [address] [place] [address], [address], 03/31/2021 15:45:14 cytolog y, vaginal /cervic al 2020 021 [facility], [address] [place] [address], [address], 03/31/2021 16:52:32 Referral None recorde d. Procedures None recorde d. Surgeries None recorde d. Imaging MRI, breast, bilater al, w/wo contras t [address] [facility], [address] [place] [address], [address], 10/01/2024 10:50:08 MAMMO, screeni ng, tomosyn thesis, bilater al, w/ CAD [address] [facility], [address] [place] [address], [address], 12/09/2024 06:26:02 MAMMO, screeni ng, tomosyn thesis, bilater al, w/ CAD 2022 023 [facility], [address] [place] [address], [address], 07/18/2023 15:32:15 MRI, breast, bilater al, w/wo contras t 2022 023 [facility], [address] [facility], [place], [address], 05/12/2023 11:06:38 MRI, breast, bilater al, w/wo contras t 2020 022 [facility], [address] [place] [address] , [place], [address], 11/27/2021 15:31:33 MAMMO, screeni ng, tomosyn thesis, [facility], w/ CAD 2020 021 [facility], [address] [place] [address] , [place], [address], 08/08/2021 10:48:29 Medication Orders None recorde d. Patient TargetsNo targets recorded. Patient Instructions Encounter Date Encounter Id Patient Instructions Last Modified By Organization Details Last Modified Time 03/29/2021 [id number] learning about cervical cancer screening Not available [...] annual, PRN Not available 03/29/2021 16:04:56 04/03/2022 [id number] learning about cervical cancer screening Not available 04/03/2022 16:02:46 47 yo here today for annual exam Normal exam, pap with reflex HPV of the cuff - if normal, continue yearly paps through 2024 Mammo up to date Colonoscopy up to date RTC 1 year annual, PRN - may be in [place] by then. Not available 04/03/2022 16:06:25 04/11/2023 [id number] medical record request* [email or web address] Not available 04/12/2023 09:55:49 Reason for Referral None Reported. Results Created Date Observation Date Name Description Value Unit Range Abnormal Flag Note LastModifiedBy Organization Detail LastModifiedTime 03/29/20 21 03/31/2021 CHLAM YDIA/ GC, RNA chlamydia trachomatis NOT DETECT ED not detect ed normal Not Available [facility] [address] [place] [address], [address], 03/31/2021 15:45:13 03/29/20 21 03/31/2021 CHLAM YDIA/ GC, RNA N. gonorrhoeae NOT DETECT ED not detect ed normal Not Available [facility] [address] [place] [address], [address], 03/31/2021 15:45:13 03/29/20 21 03/31/2021 CHLAM YDIA/ [...] refer to https ://ed ucati on.qu estdi [employer] tics. com/f aq/FA R754 (This link is being provi ded for infor mc leon/ educa gio l purpo ses only. ) TEST PERFO RMED AT: [facility] [address] [facility] [address] ISRRAEL Shannon MD Not Available [facility] [address] [place], [address], 03/31/2021 15:45:13 03/29/20 21 03/29/2021 PAP SMEAR [...] s. Page 1 of 1 Not Available [facility], [place], [address], 03/31/2021 16:52:32 04/03/20 22 04/03/2022 PAP SMEAR [...] s. Page 1 of 1 Not Available [facility] [address] [place] [address], [place], [address], 04/09/2022 11:21:32 04/11/20 23 04/16/2023 HPV, HIGH [...] ar cervi jeovany cytol ogy. Not Available [facility] [address] [place], [address], 04/16/2023 11:42:50 04/11/20 23 04/11/2023 PAP SMEAR Pap smear SEE BELOW normal Depar tment of Patho logy GYNEC OLOGI JEOVANY CYTOL OGY REPOR T NAME: SHANTI ALLISON PATHO LOGY NO.: [id number] Copy to: [facility] E OF SPECI MEN: VAGIN AL-TH IN [...] s. Page 1 of 1 Not Available [facility] [address] [place], [address], 04/17/2023 14:34:43 04/15/20 24 04/17/2024 HPV, HIGH [...] Ampli ficat ion (NAAT ) Not Available [facility] [address] [place] [address], [place], [address], 04/17/2024 13:18:13 04/15/20 24 04/15/2024 PAP SMEAR [...] s. Page 1 of 1 Not Available [facility] [address] [facility], [place], [address], 04/21/2024 15:12:34 11/28/19 22 11/27/2021 MAMMO , scree elías, tomos ynthe sis, bilat eral, w/ CAD [address] [place] [address] Patimarino t Name: ENID hairston : 89 [...] Salomón Brown MD on 022 1:37 PM [facility] [address] , [place], [address], 11/30/2021 16:56:32 11/28/19 22 11/27/2021 MRI, rei yovannyelke, w/wo contr ast [address] [address] Patimarino t Name: ENID Carrillo t : [...] nium contra st accord ing to the [facility] cturer 's weight -based algori thm for contra st dosage . ([facility] [place] the 7[place] [address]- 325-11 ). Homeru m intens ity projec [...] Salomón Brown MD on 022 3:26 PM [facility] [address] [place], [address], 11/28/2021 15:09:49 04/12/20 23 08/16/2022 MRI, thora cic spine , w/ contr ast No observ ation record ed. [email or web address] [facility] [address], [place], [address], 04/25/2023 11:07:56 04/25/2005/06/2022 MAMMO , scree elías, tomos ynthe sis, bilat eral, w/ CAD No observ ation record ed. [email or web address] [facility] [address], [place], [address], 05/02/2023 14:40:28 05/12/20 23 05/10/2023 MRI, rei hairston, adrienat eral, w/wo contr ast [facility] [address] [facility] [address] Patien t Name: ENID TURK Patimarino t [...] algori thm for contra st dosage . ([facility] [place] the [place] [address]- 325-11 ). Maximu m intens ity projec [...] Salomón Brown MD on 2022 11:01 AM [facility] [address] [place] [address], [address], 05/13/2023 18:37:31 07/18/19 24 07/18/2023 MAMMO , scree elías, tomos ynthe sis, bilat eral, w/ CAD [place] [address] [place] [address] Lorena hairston Name: ENID hairston : [phone] Age: 48 years Lorena hairston Orderi ng Provid er: MICHAEL [facility] [...] from the 3D datase t using C-View Meilimeiwa re. The study was read with the [...] Emil Augustin on 07/18/19 24 3:27 PM [facility] [address] [place], [address], 07/19/2023 15:51:20 Result Notes None recorded. Problems Name Problem SNOMED Code Status Onset Date Resolution Date Notes Provider Name and Address Organization Details Recorded Time Urinary tract infectious disease 91016522 Active 2015 From Automated Load;Provi shobha: Beiting, Stefania;S tatus: Active Not Available [facility] 6 03:56:29 Cyst of ovary 48590179 Active 2015 From Automated Load;Provi shobha: Beiting, Stefania;S tatus: Active Not Available [facility] 6 03:56:29 Problem Notes None recorded. Procedures Surgical History Date Name Laterality Status Provider Name and Address Organization Details Recorded Time 024 Pap Smear collection completed MICHAEL BOYLE, SPECIAL NEEDS LIBRARIAN [address] [place], [address], [facility] 04/15/2024 15:55:40 023 Pap Smear collection completed MICHAEL BOYLE, SPECIAL NEEDS LIBRARIAN [address] [place], [address], [facility] 04/11/2023 15:43:20 023 Date of Last Pap Smear completed Katty [facility] 04/15/2024 09:45:53 022 Airway Resistance completed [facility] 01/08/2022 14:35:00 022 Diffusion Capacity completed [facility] 01/08/2022 14:34:56 022 Lung Volumes, Plethysmography completed [facility] 01/08/2022 14:35:02 022 Demonstration Aerosol/Generator/ Nebulizer/Opticham jess completed Mattie Hannon [facility] 01/08/2022 14:41:59 022 Spirometry completed [facility] 01/08/2022 14:35:05 022 Date of Last Mammogram completed SHAAN GOMEZ PA-C [address] [place], [address], [facility] 04/03/2022 11:33:50 020 ROBOTIC ASSISTED HYSTERECTOMY WITH SALPINGECTOMY (SURG) completed Tere Birminghamley [facility] 06/01/2020 15:10:26 020 Colonoscopy completed Mackenzie Campuzanoley [facility] 01/12/2020 10:28:29 019 Transvaginal Ultrasound; Non-OB completed STEFANIA CENTENO MD [address] [place], [address], [facility] 04/30/2019 12:42:57 018 Suture/Staple removal completed Jimi Whelan [facility] 03/31/2018 10:02:58 018 Wound Repair; Intermediate completed DAMEON MULLINS DO [address] [place], [address] 03/21/2018 10:17:34 018 Excision BN Lesion; scalp, neck, hands, feet, genitalia completed DAMEON MULLINS DO [address] [place], [address], [facility] 03/21/2018 10:17:29 014 Other completed Aubrie Appiah [facility] 03/05/2018 11:03:13 Other completed Aubrie Appiah [facility] 03/05/2018 10:57:08 delivery completed Aubrie crow [facility] 03/05/2018 10:57:16 Removal of tonsils completed Aubrie abdullahi [facility] 03/05/2018 10:57:24 Other completed Aubrie Appiah [facility] 03/05/2018 10:57:45 Other completed Aubrie Appiah [facility] 03/05/2018 10:57:52 Imaging Results None recorded. Procedure [...] completed Not Available Not Available Not Available [place] 5 mg-325 mg tablet Take 1 tablet [...] Not Available No t Available [employer] [place] 3-6-9 2 daily active Not Available Not [...] Updated DateTime 2 162.56 cm 30.4 kg/m2 92644.8 5 g 95 % 95 % 88 /min 118 mm[Hg] 70 mm[Hg] Val Gar [facility] 2 14:18:05 Date Recorded Body height Body mass index (BMI) Body weight Systolic blood pressure Diastolic blood pressure Provider Name and Address Organization Details Last Updated DateTime 03/29/2021 162.56 cm 31.1 kg/m2 57670.22 g 114 mm[Hg] 78 mm[Hg] Dukejeremy Estrada [facility] 1 15:27:23 Date Recorded Body height Body mass index (BMI) Body weight Systolic blood pressure Diastolic blood pressure Provider Name and Address Organization Details Last Updated DateTime 04/03/2022 162.56 cm 30.4 kg/m2 82617.85 g 112 mm[Hg] 78 mm[Hg] Ariadne Guzman [facility] 2 15:40:02 Date Recorded Body mass index (BMI) Body weight Provider Name and Address Organization Details Last Updated DateTime 04/11/2023 29.4 kg/m2 41562.3 g MICHAEL BOYLE, SPECIAL NEEDS LIBRARIAN [address] [place], [address] 04/11/2023 15:42:17 Date Recorded Body height Systolic blood pressure Diastolic blood pressure Provider Name and Address Organization Details Last Updated DateTime 04/11/2023 162.56 cm 118 mm[Hg] 84 mm[Hg] Miriam Hughes [facility] 04/11/2023 14:57:45 Date Recorded Body height Body mass index (BMI) Body weight Systolic blood pressure Diastolic blood pressure Provider Name and Address Organization Details Last Updated DateTime 04/15/2024 162.56 cm 26.6 kg/m2 27009.22 g 122 mm[Hg] 70 mm[Hg] Katty [facility] 15:18:47 Social History Question Answer Notes LastModified by Organizat ion Details LastModified Time Tobacco Smoking Status Former Smoker 2004 [facility] 02/11/2020 13:09:31 Marital Status Informatio n not available 03/05/2018 What Was The Date Of Your Most Recent Tobacco Screening? 04/11/2023 [email or web address] Information not available 04/11/2023 Sex: Female Functional [...] available 2017 10:59:56 Maternal Grandfather Malignant melanoma [email or web address] Not available 2017 17:11:30 Paternal Aunt Family history of malignant neoplasm Breast cancer Not available 03/29/2021 15:36:58 Unspecified Relation Family history of malignant neoplasm patern al cousin with breas cancer Not available 03/29/2021 15:37:10 Medical History Condition Response Diabetes Y Other Y Bleeding Disorder N Hyperlipidemia Y Cancer N Stroke N Thyroid Problems N Depression Sleep Apnea N High Cholesterol Y Heart Attack (MD) N Deep Vein Thrombosis N Hypertension N [...] SNOMED-CT Code Diagnosis ICD10 Code Diagnosis Note [id number] SHAAN GOMEZ PA-C [facility] [address] [place] [address] 03/05/2018 10:50:38 03/05/2018 11:56:53 Discharge from nipple [id number] N64.52 Routine gy necologic examination done 3551995645 9101 Z01.419 Screening for malignant neoplasm of cervix 934327853 Z12.4 Lesion of vulva 67650970 6 N90.9 [id number] GLYNN CROW PA-C [facility] [address] [place] [address] 03/13/2018 14:34:19 03/14/2018 08:04:51 Dermatofibroma 737598000 D23.9 BENIGN APPEARANCE , PT REASSURED Epidermoid cyst of skin 917752849 L72.0 LEFT MONS PUBIS PT HAS DECOMPRESS ED CYST - NOTHING TO I&D TODAY SHE WOULD LIKE EXCISED TO PREVENT RECURRENCE - DISCUSSED R/B/A WILL SET UP WITH DR. MULLINS Lipoma of thigh 54078800 4 D17.24 BENIGN REASSURANC E SMALL AND ASYMPTOMAT IC - OBSERVE, MAY WISH TO EXCISE IN FUTURE [id number] DAMEON MULLINS DO [facility] [address] [place] [address] 03/21/2018 08:43:12 03/21/2018 12:44:33 Epidermoid cyst of skin 749898691 L72.0 Left mons pubis/late ral labial area Discussed diagnosis of epidermoid cyst recommend treatment with excision r/a/b of procedure discussed with patient informed consent signed see procedure note f/u 10 days for wound check / suture removal due to location- keflex Rx for infection prevention Pain of skin 037505921 R 52 cyst [id number] DAMEON MULLINS DO [facility] [address] [place] [address] 03/31/2018 09:57:59 03/31/2018 10:10:35 Removal of suture 58152787 Z48.02 s/p excision of cyst sutures removed without incident no redness, drainage, streaking- healing well [id number] SHAAN GOMEZ PA-C [facility] [address] [place] [address] 03/25/2019 11:04:00 03/25/2019 13:09:27 Routine gynecologic examination done 3959139930 9101 Z01.419 Screening for malignant neoplasm of cervix 149847805 Z12.4 History of dysplasia of cervix 981918305 Z87.410 Screening for malignant neoplasm of breast 224427672 Z12.31 On a Wed between 10-12 if they do screening then Acute urin kelly tract infection 068583004 N39.0 resolved [id number] STEFANIA CENTENO MD [facility] [address] [place] [address] 04/30/2019 09:35:06 04/30/2019 10:57:11 Left lower quadrant pain 855809091 R10.32 Patient continues to have some vague [...] hormones are not such a good idea. 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 She does not want hysterecto my for now. Will just follow. Menorrhagia 215574432 N9 2.0 Currently is off her hormonal medication because of her intermitte nt pancreatit is. Pain in pelvis 54119055 R10.2 Patient has had intermitte nt recurring [...] hysterosco py which was done in 2013. [id number] SHAAN GOMEZ PA-C [facility] [address] [address] 04/06/2020 10:47:05 04/06/2020 11:45:09 Routine gynecologic examination done 6607882878 9101 Z01.419 Screening for malignant neoplasm of cervix 732967602 Z12.4 Screening for malignant neoplasm of breast 970599945 Z12.31 On a Wed between 10-12 Menorrhagia 046981966 N9 2.0 [id number] STEFANIA CENTENO MD [facility] IRONWORKER [facility] [address] [place] [address] 05/12/2020 10:32:09 05/12/2020 11:13:37 Postoperative care 566356933 Z48.89 risk of surgery given. pt agrees and consent. . npo after midnight. has ibs C. do a bowel cleansing. night before.ris k of surgery discussed. lpt does not want a midline abodminal incision. leave ovaries if normal. check the left ovary since doese have 'more problems from that one and okay to take it out if questionab le. [id number] STEFANIA CENTENO MD BRIDGE IRONWORKER [facility] [address] [place] [address] 06/20/2020 13:00:32 06/20/2020 13:34:11 Abdominal pain 10142545 R10.9 exam benign but think she is dong too much right now. 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 recheck. [id number] SHAAN GOMEZ PA-C [facility]ON[facility] [address] [place] [address] 07/27/2020 10:44:35 07/27/2020 11:31:09 Postoperative visit 620682950 Z09 [id number] SHAAN GOMEZ PA-C [facility] [address] [place] [address] 08/31/2020 10:42:24 08/31/2020 11:24:03 Postoperative care 302724505 Z48.89 cuff with very slow healing. recommend to still d/c sexual penetratio n. recheck one month. not sure what not healing quickly. non smoker. no steriods or other immune suppressan ts. pt understand s the need to recheck and cont light activity until healed or precaustio ns on rupture and fistula given so she can come in sooner if needed. [id number] SHAAN GOMEZ PA-C [facility] [address] [place] [address] 09/28/2020 11:07:09 09/28/2020 11:37:30 Postoperative visit 636132733 Z09 [id number] SHAAN GOMEZ PA-C [facility] [address] [place] [address] 03/29/2021 15:14:02 03/29/2021 16:07:24 Gynecologic examination 76880290 Z01.419 Screening for malignant neoplasm of vagina 526766183 Z12.72 Screening for malignant neoplasm of breast 604730069 Z12.31 Saturday or Venereal d isease screening 981654104 Z11.3 Family his tory of breast cancer 129001200 Z80.3 [id number] NICK CHOW MD PULMONARY [address] [facility], [address] [place] [address] 01/08/2022 13:50:25 01/08/2022 16:24:28 Asthma 973378226 J45.909 I will put her on a return to clinic as needed. She has perfectly normal PFTs. Her control is good currently. I do not think she needs both a pulmonolog ist and an police service technician managing her asthma at this point in time. Given her significan t allergy history, I think she is better served by continuing her asthma therapies through her police service technician as they can do desensitiz ation therapy. If this fails to be sufficient , then I would be happy to see her back for evaluation of of asthma Biologics. Allergic rhinitis 062984 04 J30.[id number] [place] [address] 04/03/2022 15:14:23 04/03/2022 16:37:23 Gynecologic examination 79513420 Z01.419 Screening for malignant neoplasm of vagina 243924216 Z12.72 [id number] MONICA FULLER [facility] [address] [place] [address] 04/11/2023 14:47:39 04/11/2023 15:35:19 Gynecologic examination 03118609 Z01.419 PAP of vaginal cuff todaywill contact patient with resultspat ient to follow up in one year Screening for malignant neoplasm of vagina 680653676 Z12.72 Heterogene ously dense breast composition 767258895 R92.2 Screening mammogram due nowadjunct MRI screening due at 6 months Family his tory of breast cancer 702953172 Z80.3 family history of breast cancer: maternal aunt: paternal aunt: paternal cousinsee above note Computed t omography result abnormal 655415104 R93.[address] completed at [facility] recently revealed right floating clip from previous tubal ligationwi ll obtain records for reviewadvi sed patient will then review with Dr. Magda smith contact patient if follow up needed Menopausal flushing 1983 07484 N95.1 Discussed risk and benefits of HRT with patientAls o discussed FDA approved Brisdellep atient reports that she is not interested in medication at this time [id number] MICHAEL BOYLE , [facility] [address] [place] [address] 04/15/2024 15:09:46 04/15/2024 15:54:17 Gynecologic examination 58207914 Z01.419 PAP of vaginal cuff todaywill contact patient with resultspat ient to follow up in one year Screening for malignant neoplasm of vagina 842509012 Z12.72 At high ri for malignant neoplasm of breast 5715545058 22089 Z91.89 repeat MRI - adjunct screening Heterogene ously dense breast composition 323706132 R92.2 patient doing adjunct MRI screening Screening for malignant neoplasm of breast 120158475 Z12.39 repeat screening mammogram due after 07/18/24 [...] Thompson Member ID Guarantor Name 07/18/2024 1 [facility] [id number] Pato pratt [id number] Enid Almazan 06/08/2020 1 [facility] [id number] Robe Goldman a [id number] Enid Almazan 04/26/2020 PAYMENT PLAN Enid Almazan 04/03/2022 1 [facility] [id number] Pato Goldman a [id number] Enid Almazan 03/25/2019 1 [facility] [id number] Robe Goldman a [id number] Enid Almazan 11/04/2023 PAYMENT PLAN Enid Almazan [...] partners. She would like STD screening today. HSAAN GOMEZ PA-C [facility] [place], [address], [facility] 03/29/2021 16:05:40 01/08/2022 text/html Enid comes in [...] She says when she travels outside the [facility] that her symptoms all resolved. She also [...] 113% DLCO 104% NICK CHOW MD [address] [place], [address], [facility] 01/08/2022 16:12:01 04/03/2022 text/html 47 [...] no issues or concerns.Planning to move to [place] next summer after her son graduates from high school SHAAN GOMEZ PA-C [address] [place], [address], [facility] 04/03/2022 16:06:59 04/11/2023 text/html 48 [...] repeat 10 years MICHAEL BOYLE APRN [address] [place], [address], [facility] 04/11/2023 15:46:09 04/15/2024 text/html 49 [...] 08/10/19: normal: repeat 10 years MICHAEL BOYLE, SPECIAL NEEDS LIBRARIAN [address] [place], [address], [facility] 04/15/2024 15:56:38 OBGyn Episode No OBEpisode recorded.
== END 2024-12-14 23:59 | disposition home or self-care (01) ==
LOC: LAB.DROPOF 12-15 14:46
PROVIDERS: PCP Nurse Practitioner Family; Visit Provider Nurse Practitioner Family
DX: E86.0 Dehydration (principal)
CPT/HCPCS: 80053; 85025

== ENCOUNTER 2024-12-15 08:50 | Outpatient (CLI) | payer BC, SELFPAY ==
[2024-12-15 09:16] VITALS: BP 98/62; PULSE 67; RESP 18; O2SAT 100
[2024-12-15] MEDS: MVI, ADULT NO.1 WITH VIT K 10 ML, THIAMINE HCL 100 MG, MAGNESIUM SULFATE 2 GM in LACTAT... 150 ML IV (09:16)
[2024-12-15 10:16] VITALS: BP 108/62; PULSE 60; RESP 18
[2024-12-15 13:20] VITALS: BP 113/68; PULSE 71; RESP 18; O2SAT 98
== END 2024-12-15 13:30 | disposition home or self-care (01) ==
LOC: INF 08:57
PROVIDERS: PCP Nurse Practitioner Family; Visit Provider Nurse Practitioner Family
DX: E86.0 Dehydration (principal); R23.2 Flushing
CPT/HCPCS: 96365; 96366; J3411; J7120

== ENCOUNTER 2025-01-30 08:44 | Outpatient (CLI) | payer BC, SELFPAY ==
--- OUTSIDE RECORDS SUMMARY | 2025-01-30 08:47 | XMS_ITS | Clinical Summary ---
Author Organization [facility] Address [address] [place] [address] Care Team Providers Care Reel Repairer Name Role Phone Nino Rose MD Primary Care Provider Allergies No known active allergies Medications levocetirizine (XYZAL) 5 MG tablet Take 5 mg by mouth Daily As Needed for Allergies. Active montelukast (SINGULAIR) 10 MG tablet Take 10 mg by mouth Daily As Needed (allergies). Active albuterol sulfate HFA 108 (90 Base) MCG/ACT inhaler Inhale 2 puffs Every 4 (Four) Hours As Needed for Wheezing. Active dicyclomine (BENTYL) 20 MG tablet Take 20 mg by mouth 4 (Four) Times a Day As Needed. Active cyclobenzaprine (FLEXERIL) 10 MG tablet Take 10 mg by mouth 3 (Three) Times a Day As Needed for Muscle Spasms. Active atorvastatin (LIPITOR) 40 MG tablet Take 40 mg by mouth Daily. Active icosapent ethyl (Vascepa) 1 g capsule capsule Take 2 g by mouth 2 (Two) Times a Day With Meals. Active Plecanatide (Trulance) 3 MG tablet Take 3 mg by mouth Every Night. Active SUMAtriptan (IMITREX) 50 MG tablet Take 50 mg by mouth Every 2 (Two) Hours As Needed for Migraine. Take one tablet at onset of headache. May repeat dose one time in 2 hours if headache not relieved. Active Active Problems No known active problems Resolved Problems Problem Noted Date Diagnosed Date Resolved Date Adenomyosis 06/01/2020 06/02/2020 Social History Tobacco Use Types Packs/Day Years Used Date Smoking Tobacco: Former Cigarettes 1 2 1 999 - 2000 Smokeless Tobacco: Never Alcohol Use Standard Drinks/Week Comments Yes 0 (1 standard drink = 0.6 oz pur e alcohol) rare Abuse Screen Answer Date Recorded Unsafe at Home or Work/School Not on file Feels Threatened by Someone? Not on file 06/2023 Does Anyone Keep You from Co ntacting Others or Doint Things Outside the Home? Not on file 04/25/2023 Physical Sign of Abuse Present Not on file 1 Housing Stability Answer Date Recorded Current Living Arrangements Not on file 04/14 Potentially Unsafe Housing Conditions Not on maeve e 04/25/2023 Family and Community Support Answer Elton e Recorded Help with Day-to-Day Activities Not on file 04/25/2023 Lonely or Isolated Not on file 04/25/2023 Employment Answer Date Recorded Do you want help finding or keeping work or a vale b? Not on file 04/25/2023 Disabilities Answer Date Recorded Concentrating, Remembering, or Making Decisions Difficulty Not on file 04/25/2023 Doing Errands Independently Difficulty Not on fi le 04/25/2023 Education Answer Date Recorded Help with school or training? Not on file Preferred Language Not on file 04/25/2023 Comments No Sex and Gender Information Value Date Recorded Sex Assigned at Not on file Legal Sex Female 12:34 PM EDT Gender Identity Not on file Sexual Orientation Not on file Last Filed Vital Signs Vital Sign Reading Time Taken Comments Blood Pressure 134/71 06/02/2020 7:00 AM EST Pulse 62 06/02/2020 7:00 AM EST Temperature 36.7 C (98.1 F) 06/02/2020 7:00 AM EST Respiratory Rate 20 06/02/2020 7:00 AM EST Oxygen Saturation 95% 06/02/2020 7:00 AM EST Inhaled Oxygen Concentration - - Weight 82.1 kg (181 lb) 06/01/2020 9:38 AM EST Height 162.6 cm (5' 4 ) 06/01/2020 9:38 AM EST Body Mass Index 31.07 06/01/2020 9:38 AM EST Plan of Treatment Health Maintenance Due Date Last Done Comments Annual Gynecologic Pelvic and Breast Exam 1975 TDAP/TD VACCINES (1 - Tdap) 1994 MAMMOGRAM 2015 COLOGUARD 01/24/2020 COLON CANCER SCREENING 5 YEAR SIGMOIDOSCOPY 01/24/2020 COLONOSCOPY 01/24/2020 COLORECTAL CANCER SCREENING 01/24/2020 CT COLONOGRAPHY 01/24/2020 FECAL OCCULT BLOOD TEST 01/24/2020 FIT Testing (1 year) 01/24/2020 ANNUAL PHYSICAL 05/29/2020 HEPATITIS C SCREENING 05/29/2020 COVID-19 Vaccine (1 - 2023-25 season) 2024 Pneumococcal Vaccine 50+ (1 of 1 - PCV) 2025 ZOSTER VACCINE (1 of 2) 2025 INFLUENZA VACCINE 04/14/2025 Medical Devices Implanted Type Area [employer] Device Identifier Shelf Expiration Date Model / Serial / Lot Seal Fibrin Tisseel Fz 4ml - [id number] Implanted:Qty: 1 on 06/01/2020 by Jacqueline Rice MD at [facility] Implant [facility] 11/11/2021 [id number] / / [id number] Dev Cls Wnd Vloc/180 Michelle Abs 1/2cir Sz0 23cm 37mm Grn - [id number] Implanted:Qty: 3 on 06/01/2020 by Jacqueline Rice MD at [facility] Implant [employer] 09/11/2022 [id number] / / [id number] Procedures Procedure Name Priority Date/Time Associated Diagnosis Comments SCANNED - LABS 12/14/2024 SCANNED - CARDIAC CT 12/10/2024 from Last 3 Months Results * LABS SCANNED (12/14/2024) [facility] New Onbase LAB BLOOD ORDERABLES Final Re sult * CARDIAC CT SCANNED (12/10/2024) Anatomical Region Laterality Modality Computed Tomogra phy [facility] New Onbase IMG CT ORDERABLES Final Resul t from Last 3 Months Insurance [facility] [place] Advance Directives * CPR (Attempt to Resuscitate) (Latest Code Status on File) Date Activated Date Inactivated Comments 06/01/2020 2:59 PM 06/02/2020 3:56 PM Question Answer Comments Code Status (Patient has no pulse and is not breathing): CPR (Attempt to Resuscitate) Medical Interventions (Patie nt has pulse or is breathing): Full Level Of Support Discussed With: Patient Care Teams Reel Repairer Relationship Specialty Start Date End Date Nino Rose MD [address] [address] [address] [place] [id number] PCP - General Family Medicine 05/29/20
--- OUTSIDE RECORDS SUMMARY | 2025-01-30 08:47 | XMS_ITS | Data Portability ---
Author Organization [facility] RAMSES FinleyS TOWNER CLOSED Address [address] [place] [address] Assessment No assessment recorded. Plan of Treatment Reminders Order Date Submit Date Provider Last Modified By Organization Details Last Modified Time Details Appointments ANNUAL RV REPAIR TECHNICIAN 2024 03:00P M MICHAEL BOYLE REGISTERED ART THERAPIST Not available Not available Not available Lab pap, LB 2023 024 [facility], [address] [place] [address], [address], 04/21/2024 15:12:34 HPV DNA, high-ri sk 2023 024 [facility], [address] [place] [address], [address], 04/17/2024 13:18:13 pap, LB 2022 023 [facility], [address] [place] [address], [address], 04/17/2023 14:34:43 HPV DNA, high-ri sk 2022 023 [facility], [address] [place] [address], [address], 04/16/2023 11:42:50 cytolog y, vaginal /cervic al 2021 022 [facility], [address] [place] [address], [address], 04/09/2022 11:21:32 creatin ine, serum or plasma [address] [facility], [address] [place] [address], [address], 11/21/2021 15:00:59 bun (blood urea nitroge n), serum or plasma [address] [facility], [address] [place] [address], [address], 11/21/2021 15:00:59 CT + NG RNA, PCR, unspeci fied specime n 2020 021 [facility], [address] [place] [address], [address], 03/31/2021 15:45:14 cytolog y, vaginal /cervic al 2020 021 [facility], [address] [place] [address], [address], 03/31/2021 16:52:32 Referral None recorde d. Procedures None recorde d. Surgeries None recorde d. Imaging MRI, breast, bilater al, w/wo contras t [address] [facility], [address] [place] [address], [id number], 10/01/2024 10:50:08 MAMMO, screeni ng, tomosyn thesis, bilater al, w/ CAD [address] [facility], [address] [place] [address], [address], 12/09/2024 06:26:02 MAMMO, screeni ng, tomosyn thesis, bilater al, w/ CAD 2022 023 [facility], [address] [place] [address], [address], 07/18/2023 15:32:15 MRI, breast, bilater al, w/wo contras t 2022 023 [facility], [address] [facility], [place], [address], 05/12/2023 11:06:38 MRI, breast, bilater al, w/wo contras t 2020 022 [facility], [address] [facility] , [place], [address], 11/27/2021 15:31:33 MAMMO, screeni ng, tomosyn thesis, bilmel al, w/ CAD 2020 021 [facility], [address] [place] [address] , [place], [address], 08/08/2021 10:48:29 Medication Orders None recorde d. Patient TargetsNo targets recorded. Patient Instructions Encounter Date Encounter Id Patient Instructions Last Modified By Organization Details Last Modified Time 03/29/2021 [id number] learning about cervical cancer screening Not available [...] annual, PRN Not available 03/29/2021 16:04:56 04/03/2022 [id number] learning about cervical cancer screening Not available 04/03/2022 16:02:46 47 yo here today for annual exam Normal exam, pap with reflex HPV of the cuff - if normal, continue yearly paps through 2024 Mammo up to date Colonoscopy up to date RTC 1 year annual, PRN - may be in [place] by then. Not available 04/03/2022 16:06:25 04/11/2023 [id number] medical record request* [email or web address] Not available 04/12/2023 09:55:49 Reason for Referral None Reported. Results Created Date Observation Date Name Description Value Unit Range Abnormal Flag Note LastModifiedBy Organization Detail LastModifiedTime 03/29/20 21 03/31/2021 CHLAM YDIA/ GC, RNA chlamydia trachomatis NOT DETECT ED not detect ed normal Not Available [facility] [address] [place] [address], [address], 03/31/2021 15:45:13 03/29/20 21 03/31/2021 CHLAM YDIA/ GC, RNA N. gonorrhoeae NOT DETECT ED not detect ed normal Not Available [facility] [address] [place] [address], [address], 03/31/2021 15:45:13 03/29/20 21 03/31/2021 CHLAM YDIA/ [...] refer to https ://ed ucati on.qu estdi agnIdeaSquares tics. com/f aq/FA Q154 (This link is being provi ded for infor mc leon/ educa gio l purpo ses only. ) TEST PERFO RMED AT: [facility] [place] [address] [place] [address] [place] [address] ISRRAEL Shannon MD Not Available [facility] [address] [place], [address], 03/31/2021 15:45:13 03/29/20 21 03/29/2021 PAP SMEAR [...] s. Page 1 of 1 Not Available [facility] [address] [place] [address], [place], [address], 03/31/2021 16:52:32 04/03/20 22 04/03/2022 PAP SMEAR [...] s. Page 1 of 1 Not Available [facility] [address] [place] [address], [place], [address], 04/09/2022 11:21:32 04/11/20 23 04/16/2023 HPV, HIGH [...] ar cervi jeovany cytol ogy. Not Available [facility] [address] [place], [address], 04/16/2023 11:42:50 04/11/20 23 04/11/2023 PAP SMEAR Pap smear SEE BELOW normal Depar tment of Patho logy GYNEC OLOGI JEOVANY CYTOL OGY REPOR T NAME: SHANTI ALLISON PATHO LOGY NO.: [id number] Copy to: [facility] E OF SPECI MEN: VAGIN AL-TH IN [...] s. Page 1 of 1 Not Available [facility] [address] [place], [address], 04/17/2023 14:34:43 04/15/20 24 04/17/2024 HPV, HIGH [...] Ampli ficat ion (NAAT ) Not Available [facility] [address] [facility], [place], [address], 04/17/2024 13:18:13 04/15/20 24 04/15/2024 PAP SMEAR [...] s. Page 1 of 1 Not Available [facility] [address] [facility], [place], [address], 04/21/2024 15:12:34 11/28/19 22 11/27/2021 MAMMO , scree elías, tomos ynthe sis, bilat eral, w/ CAD [address] [place] [address] Patien t Name: ENID hairston : [birth year]75 Age: [...] is higher than 20% using the christen yovanny Austiner- Cuzick risk-a ssessm ent model (versi on 8: densit y-info rmed score) . Adjunc tive screen ing is recomm ended with breast MRI per [place] an Cancer Societ y guidel amilcar. Result s were mailed or given to the patien t. Interp reted By: Salomón Brown MD Electr onical ly Signed By: Salomón Brown MD on 022 1:37 PM [facility] [address], [place], [address], 11/30/2021 16:56:32 11/28/19 22 11/27/2021 MRI, rei hairstonelke, w/wo contr ast [address] [address] Patimarino t Name: ENID Carrillo t : [birth year]75 Patien t Orderi ng Provid er: STEFAN GOMEZ EXAM DATE: 2021 EXAM: MR SITA BREAST W/WO CONTRA ST HISTOR Y: Strong [...] nium contra st accord ing to the [facility] cturer 's weight -based algori thm for contra st dosage . ([facility] [place] the [place] [address]- 325-11 ). Maximu m intens ity projec [...] Salomón Brown MD on 022 3:26 PM [facility] [address] [facility], [place], [address], 11/28/2021 15:09:49 04/12/2008/16/2022 MRI, thora cic spine , w/ contr ast No observ ation record ed. [email or web address] [facility] [address], [place], [address], 04/25/2023 11:07:56 04/25/2005/06/2022 MAMMO , scree elías, tomos ynthe sis, bilat eral, w/ CAD No observ ation record ed. [facility] [address], [place], [address], 05/02/2023 14:40:28 05/12/20 23 05/10/2023 MRI, rei hairston, elke horan, w/wo contr ast [facility] [address] [place] [address] Patien t Name: ENID TURK Patien t : [birth year] Age: 48 years Patien t Orderi ng Provid er: MICHAEL ST GTON EXAM DATE: 2022 EXAM: MR SITA BREAST W/WO CONTRA ST HISTOR Y: Strong [...] nium contra st accord ing to the [facility] cturer 's weight -based algori thm for contra st dosage . ([facility] [place] the [place] [address]- 325-11 ). Maximu m intens ity projec [...] Salomón Brown MD on 2022 11:01 AM [facility] [address] [place] [address], [place], [address], 05/13/2023 18:37:31 07/18/19 24 07/18/2023 MAMMO , scree elías, tomos ynthe sis, bilat eral, w/ CAD [address] [address] Patimarino hairston Name: ENID hairston : [birth year] Age: 48 years Patimarino t Orderi ng Provid er: MICHAEL ST [...] Augustin Electr onical ly Signed By: Emil Charli on 07/18/19 3:27 PM [facility] [address] [place], [address], 07/19/2023 15:51:20 Result Notes Documentation Provider Name and Address Organization Details Recorded Time Mammo, Screening, Tomosynthesis, Bilateral, W/ Cad : [facility] [address] [place] [address] Patient Name: ENID QUISPE Patient : 1975 Age: 46 years Patient Ordering Provider: SHAAN GOMEZ EXAM DATE: 11/27/2021 EXAM: MG SCREENING JA MAMMOGRAM INDICATION: Screening. History of breast cancer treated with breast conserving therapy. PROCEDURE: Multislice imaging of both breasts was performed in standard projections using [employer] Dimensions tomosynthesis equipment (3D mammography). 2D images were created from the 3D dataset using C-View software. The study was read with the assistance of Computer Aided Detection (CAD) software. COMPARISON: This was compared with previous mammograms dated 05-25-2020, 04-22-2019, 03-18-2018 FINDINGS: The breasts are heterogeneously dense. This may lower the sensitivity of mammography. There is no suspicious mass or cluster of calcifications. No architectural distortion. Areas of tissue asymmetry again noted bilaterally. The pattern is unchanged. IMPRESSION: BI-RADS category 2, Benign. 1. There is no evidence of malignancy. Screening mammograms are recommended in one year. 2. This patient has risk factors for breast cancer including . Her calculated lifetime risk of developing breast cancer is higher than 20% using the current Tyrer-Cuzick risk-assessment model (version 8: density-informed score). Adjunctive screening is recommended with breast MRI per [employer] guidelines. Results were mailed or given to the patient. Interpreted By: Salomón Brown MD ERINA PUGH APRN [address] [place], [address], [facility] 11/28/2021 16:09:26 Mri, Breast, Bilateral, W/wo Contrast : [address] [place] [address] Patient Name: ENID QUISPE Patient : 1975 Patient Ordering Provider: SHAAN GOMEZ EXAM DATE: 11/27/2021 EXAM: MR SITA BREAST W/WO CONTRAST HISTORY: Strong family history of breast cancer PROCEDURE: MRI of the breasts. COMPARISON: Ultrasound 03/18/2018, mammography 01/19/2016 The patient did not require sedation for this exam. No POC testing for eGFR was performed due to absence of risk factors. TECHNIQUE: MRI of the breasts was performed with standard departmental protocol including imaging before and after administration of 7.5 mL of Gadavist intravenous gadolinium contrast according to the glass blower's weight-based algorithm for contrast dosage. ([facility] [place] [address]-352-38). Maximum intensity projection images and 3-D reformatted images were created for further evaluation. Additionally dynamic contrast enhancement was evaluated with the help of Zuznow postprocessing software. FINDINGS: Patient has heterogeneously dense breast tissue. Following intravenous ministration gadolinium suspension, mild physiological background enhancement is present. Scattered tiny subcentimeter cysts are present bilaterally. There is no suspicious area of enhancement/rapid washout. There are bilateral small axillary lymph nodes although they have benign morphology. There are no extramammary abnormalities present IMPRESSION: BI-RADS category 2, Benign. Recommend yearly follow-up screening mammography Interpreted By: Salomón Brown MD N GOMEZ PA-C [address] [place] [address], [address], [facility] 11/28/2021 15:09:49 Mri, Breast, Bilateral, W/wo Contrast : [address] [address] Patient Name: ENID QUISPE Patient : 1975 Age: 48 years Patient Ordering Provider: MICHAEL BOYLE EXAM DATE: 05/10/2023 EXAM: MR SITA BREAST W/WO CONTRAST HISTORY: Strong family history of breast cancer PROCEDURE: MRI of the breasts. COMPARISON: 11/27/2021 The patient did not require sedation for this exam. A baseline serum creatinine with eGFR was obtained prior to injection of contrast medium due to the patients risk factors for JEAN. Calculated eGFR at time of exam was GFR 69 TECHNIQUE: MRI of the breasts was performed with standard departmental protocol including imaging before and after administration of 7.5 mL of Gadavist intravenous gadolinium contrast according to the glass blower's weight-based algorithm for contrast dosage. ([facility] [place] 40485-881-14). Maximum intensity projection images and 3-D reformatted images were created for further evaluation. Additionally dynamic contrast enhancement was evaluated with the help of Zuznow postprocessing software. FINDINGS: The breasts are heterogeneously dense. Following intravenous administration of gadolinium suspension, there is mild background physiological enhancement. Scattered punctate cysts are present in both breasts. Small benign-appearing bilateral axillary nodes. No extramammary abnormality. Stable exam IMPRESSION: BI-RADS category 2, Benign. Suggest yearly follow-up screening mammography and adjunctive MRI if the patient continues to qualify her ACS guidelines Interpreted By: Salomón Brown MD AEL BOYLE, REGISTERED ART THERAPIST [address] [place] [address], [address] 05/13/2023 12:34:29 Mammo, Screening, Tomosynthesis, Bilateral, W/ Cad : [address] [address] Patient Name: ENID QUISPE Patient : 1975 Age: 48 years Patient Ordering Provider: MICHAEL BOYLE EXAM DATE: 07/18/2023 EXAM: MG SCREENING JA MAMMOGRAM INDICATION: Routine screening. PROCEDURE: Multislice imaging of both breasts was performed in standard projections using [employer] tomosynthesis equipment (3D mammography). 2D images were created from the 3D dataset using C-View software. The study was read with the assistance of Computer Aided Detection (CAD) software. COMPARISON: This was compared with previous mammograms dated 11/27/2021, 05/25/2020, 04/22/2019 FINDINGS: The breasts are heterogeneously dense. This may lower the sensitivity of mammography. No suspicious masses, calcifications, or architectural distortion in either breast. IMPRESSION: BI-RADS category 1, Negative. There is no evidence of malignancy. Screening mammograms are recommended in one year. Results were mailed or given to the patient. Interpreted By: Emil Augustin AEL BOYLE, REGISTERED ART THERAPIST [address] [place], [address], [facility] 07/19/2023 07:24:32 Problems Name Problem SNOMED Code Status Onset Date Resolution Date Notes Provider Name and Address Organization Details Recorded Time Urinary tract infectious disease 88000220 Active 2015 From Automated Load;Provi shobha: Beiting, Stefania;S tatus: Active Not Available [facility] 6 03:56:29 Cyst of ovary 02139952 Active 2015 From Automated Load;Provi shobha: Beiting, Stefania;S tatus: Active Not Available [facility] 6 03:56:29 Problem Notes None recorded. Procedures Surgical History Date Name Laterality Status Provider Name and Address Organization Details Recorded Time 024 Pap Smear collection completed MICHAELVinita YOBOYLE, REGISTERED ART THERAPIST [address] [place], [address], [facility] 04/15/2024 15:55:40 023 Pap Smear collection completed MICHAELVinita YOBOYLE, REGISTERED ART THERAPIST [address] [place], [address], [facility] 04/11/2023 15:43:20 023 Date of Last Pap Smear completed Katty [facility] 04/15/2024 09:45:53 022 Airway Resistance completed [facility] 01/08/2022 14:35:00 022 Diffusion Capacity completed [facility] 01/08/2022 14:34:56 022 Lung Volumes, Plethysmography completed [facility] 01/08/2022 14:35:02 022 Demonstration Aerosol/Generator/ Nebulizer/Opticham jess completed Mattie Hannon [facility] 01/08/2022 14:41:59 022 Spirometry completed Val Gar [facility] 01/08/2022 14:35:05 022 Date of Last Mammogram completed SHAAN GOMEZ PA-C [address] [place], [address], [facility] 04/03/2022 11:33:50 020 ROBOTIC ASSISTED HYSTERECTOMY WITH SALPINGECTOMY (SURG) [facility] 15:10:26 020 Colonoscopy completed Mackenzie Fowler [facility] 01/12/2020 10:28:29 019 Transvaginal Ultrasound; Non-OB completed STEFANIA RICE MD [address] [place], [address], [facility] 04/30/2019 12:42:57 018 Suture/Staple removal completed Jimi Whelan [facility] 03/31/2018 10:02:58 018 Wound Repair; Intermediate completed DAMEON MULLINS DO [address] [place], [address], [facility] 03/21/2018 10:17:34 018 Excision BN Lesion; scalp, neck, hands, feet, genitalia completed DAMEON MULLINS DO [address] [place], [address], [facility] 03/21/2018 10:17:29 014 Other completed Aubrie Thomas [facility] 03/05/2018 11:03:13 Other completed Aubrie Thomas [facility] 03/05/2018 10:57:08 delivery completed Naomi Thomas [facility] 03/05/2018 10:57:16 Removal of tonsils completed Gloria Thomas [facility] 03/05/2018 10:57:24 Other completed Aubrie Sanchezs [facility] 03/05/2018 10:57:45 Other completed Aubrie Thomas [facility] 03/05/2018 10:57:52 Imaging Results None recorded. [...] completed Not Available Not Available Not Available [place] 5 mg-325 mg tablet Take 1 tablet [...] Not Available No t Available [employer] [place] 3-6-9 2 daily active Not Available Not [...] blood by Pulse oximetry Heart rate Systolic And Diastolic Provider Name and Address Organization Details Last Updated DateTime 2 162.56 cm 30.4 kg/m2 82051.8 5 g 95 % 95 % 88 /min 118/70 mm[Hg] Val Gar [facility] 2 14:18:05 Date Recorded Body height Body mass index (BMI) Body weight Systolic And Diastolic Provider Name and Address Organization Details Last Updated DateTime 03/29/2021 162.56 cm 31.1 kg/m2 70364.22 g 114/78 mm[Hg] Pravin Estrada [facility] 03/29/2021 15:27:23 Date Recorded Body height Body mass index (BMI) Body weight Systolic And Diastolic Provider Name and Address Organization Details Last Updated DateTime 04/03/2022 162.56 cm 30.4 kg/m2 70485.85 g 112/78 mm[Hg] Ariadne Guzman [facility] 04/03/2022 15:40:02 Date Recorded Body mass index (BMI) Body weight Provider Name and Address Organization Details Last Updated DateTime 04/11/2023 29.4 kg/m2 48855.3 g MICHAEL BOYLE, REGISTERED ART THERAPIST [address] [place], [address] 04/11/2023 15:42:17 Date Recorded Body height Systolic And Diastolic Provider Name and Address Organization Details Last Updated DateTime 04/11/2023 162.56 cm 118/84 mm[Hg] Miriam Hughes [facility] 04/11/2023 14:57:45 Date Recorded Body height Body mass index (BMI) Body weight Systolic And Diastolic Provider Name and Address Organization Details Last Updated DateTime 04/15/2024 162.56 cm 26.6 kg/m2 83019.22 g 122/70 mm[Hg] [facility] 04/15/2024 15:18:47 Social History Question Answer Notes LastModified by Organizat ion Details LastModified Time Tobacco Smoking Status Former [facility]oker 2004 [facility]/11/2020 13:09:31 Marital Status Informatio n not available 03/05/2018 What Was The Date Of Your Most Recent Tobacco Screening? 04/11/2023 Information not available 04/11/2023 Sex: Female Functional [...] available 2017 10:59:56 Maternal Grandfather Malignant melanoma [email or web address] Not available 2017 17:11:30 Paternal Aunt Family history of malignant neoplasm Breast cancer Not available 03/29/2021 15:36:58 Unspecified Relation Family history of malignant neoplasm patern al cousin with breas cancer Not available 03/29/2021 15:37:10 Medical History Condition Response Diabetes Y Other Y Bleeding Disorder N Hyperlipidemia Y Cancer N Stroke N Thyroid Problems N Depression Sleep Apnea N High Cholesterol Y Heart Attack ([place]) N Deep Vein Thrombosis N Hypertension N [...] SNOMED-CT Code Diagnosis ICD10 Code Diagnosis Note [id number] SHAAN GOMEZ PA-C RV REPAIR TECHNICIAN [facility] [address] [facility] [address] [address] [place] [address] 03/05/2018 10:50:38 03/05/2018 11:56:53 Discharge from nipple 43761679 N64.52 Routine gy necologic examination done 0331634612 9101 Z01.419 Screening for malignant neoplasm of cervix 332717862 Z12.4 Lesion of vulva 12873176 6 N90.9 [id number] GLYNN CROW PA-C [facility] [address] [place] [address] 03/13/2018 14:34:19 03/14/2018 08:04:51 Dermatofibroma 361741646 D23.9 BENIGN APPEARANCE , PT REASSURED Epidermoid cyst of skin 089846459 L72.0 LEFT MONS PUBIS PT HAS DECOMPRESS ED CYST - NOTHING TO I&D TODAY SHE WOULD LIKE EXCISED TO PREVENT RECURRENCE - DISCUSSED R/B/A WILL SET UP WITH DR. MULLINS Lipoma of thigh 57527682 4 D17.24 BENIGN REASSURANC E SMALL AND ASYMPTOMAT IC - OBSERVE, MAY WISH TO EXCISE IN FUTURE [id number] DAMEON MULLINS DO [facility] [address] [place] [address] 03/21/2018 08:43:12 03/21/2018 12:44:33 Epidermoid cyst of skin 075217191 L72.0 Left mons pubis/late ral labial area Discussed diagnosis of epidermoid cyst recommend treatment with excision r/a/b of procedure discussed with patient informed consent signed see procedure note f/u 10 days for wound check / suture removal due to location- keflex Rx for infection prevention Pain of skin 348427943 R 52 cyst [id number] DAMEON MULLINS DO [facility] [address] [place] [address] 03/31/2018 09:57:59 03/31/2018 10:10:35 Removal of suture 60091822 Z48.02 s/p excision of cyst sutures removed without incident no redness, drainage, streaking- healing well [id number] SHAAN GOMZE PA-C RV REPAIR TECHNICIAN [facility] [address] [place] [address] 03/25/2019 11:04:00 03/25/2019 13:09:27 Routine gynecologic examination done 6433329302 9101 Z01.419 Screening for malignant neoplasm of cervix 169433726 Z12.4 History of dysplasia of cervix 744162652 Z87.410 Screening for malignant neoplasm of breast 551138700 Z12.31 On a Wed between 10-12 if they do screening then Acute urin kelly tract infection 896042156 N39.0 resolved [id number] STEFANIA RICE MD RV REPAIR TECHNICIAN [facility] [address] [place] [address] 04/30/2019 09:35:06 04/30/2019 10:57:11 Left lower quadrant pain 612777448 R10.32 Patient continues to have some vague [...] hormones are not such a good idea. [id number] BESSIE JIMENEZ MD SURGERY SCHEDULE [address] [place] [address] 08/10/2019 06:19:03 08/10/2019 06:24:34 [id number] SHAAN GOMEZ PA-C RV REPAIR TECHNICIAN [facility] [address] [facility] [address] [place] [address] 01/13/2020 11:31:18 01/13/2020 13:28:49 Menorrhagia 915544476 N92.0 Dysmenorrhea 902746213 N 94.6 [id number] STEFANIA RICE MD RV REPAIR TECHNICIAN [facility] [address] [place] [address] 02/11/2020 13:07:24 02/11/2020 13:44:36 Uterus bilocularis 81614392 Q51.20 Patient with heavy bleeding but from reviewing prior surgical findings from her last D&C in 2013 she is not a candidate for an endometria l ablation. She does not want hysterecto my for now. Will just follow. Menorrhagia [id number] N9 2.0 Currently is off her hormonal medication because of her intermitte nt pancreatit is. Pain in pelvis [id number] R10.2 Patient has had intermitte nt recurring [...] hysterosco py which was done in 2013. [id number] SHAAN GOMEZ PA-C RV REPAIR TECHNICIAN [facility] CLOSED [address] [place] [address] 04/06/2020 10:47:05 04/06/2020 11:45:09 Routine gynecologic examination done [id number] 9101 Z01.419 Screening for malignant neoplasm of cervix 582532808 Z12.4 Screening for malignant neoplasm of breast 145742002 Z12.31 On a Wed between 10-12 Menorrhagia 200965456 N9 2.0 [id number] STEFANIA RICE MD RV REPAIR TECHNICIAN [facility] CLOSED [address] [place] [address]851 1 05/12/2020 10:32:09 05/12/2020 11:13:37 Postoperative care [id number] Z48.89 risk of surgery given. pt agrees and consent. . npo after midnight. has ibs C. do a bowel cleansing. night before.ris k of surgery discussed. lpt does not want a midline abodminal incision. leave ovaries if normal. check the left ovary since doese have 'more problems from that one and okay to take it out if questionab le. [id number] STEFANIA RICE MD RV REPAIR TECHNICIAN [facility] CLOSED [address] [place] [address]121 1 06/20/2020 13:00:32 06/20/2020 13:34:11 Abdominal pain 35554552 R10.9 exam benign but think she is dong too much right now. 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 recheck. [id number] SHAAN GOMEZ PA-C RV REPAIR TECHNICIAN [facility] CLOSED [address] [address] 07/27/2020 10:44:35 07/27/2020 11:31:09 Postoperative visit [id number] Z09 [id number] SHAAN GOMEZ PA-C RV REPAIR TECHNICIAN [facility] CL[facility] [address] [place] [address] 1 08/31/2020 10:42:24 08/31/2020 11:24:03 Postoperative care [id number] Z48.89 cuff with very slow healing. recommend to still d/c sexual penetratio n. recheck one month. not sure what not healing quickly. non smoker. no steriods or other immune suppressan ts. pt understand s the need to recheck and cont light activity until healed or precaustio ns on rupture and fistula given so she can come in sooner if needed. [id number] SHAAN GOMEZ PA-C RV REPAIR TECHNICIAN [facility] CLOS[facility] [address] [place] [address] 09/28/2020 11:07:09 09/28/2020 11:37:30 Postoperative visit [id number] Z09 [id number] SHAAN GOMEZ PA-C RV REPAIR TECHNICIAN [facility] CL[facility] [address] [place] [address] 03/29/2021 15:14:02 03/29/2021 16:07:24 Gynecologic examination 14111781 Z01.419 Screening for malignant neoplasm of vagina 651609891 Z12.72 Screening for malignant neoplasm of breast 907065351 Z12.31 Saturday or Venereal d isease screening 409927497 Z11.3 Family his tory of breast cancer 338289877 Z80.3 [id number] NICK CHOW MD PULMONARY [address] [facility], [address] [place] [address] 01/08/2022 13:50:25 01/08/2022 16:24:28 Asthma 761557260 J45.909 I will put her on a return to clinic as needed. She has perfectly normal PFTs. Her control is good currently. I do not think she needs both a pulmonolog ist and an pit hand managing her asthma at this point in time. Given her significan t allergy history, I think she is better served by continuing her asthma therapies through her pit hand as they can do desensitiz ation therapy. If this fails to be sufficient , then I would be happy to see her back for evaluation of of asthma Biologics. Allergic rhinitis 226227 04 J30.9 [id number] [address] [place] [address] 04/03/2022 15:14:23 04/03/2022 16:37:23 Gynecologic examination 97564479 Z01.419 Screening for malignant neoplasm of vagina 888420484 Z12.72 [id number] MONICA FULLER [address] [place] [address] 04/11/2023 14:47:39 04/11/2023 15:35:19 Gynecologic examination 32694565 Z01.419 PAP of vaginal cuff todaywill contact patient with resultspat ient to follow up in one year Screening for malignant neoplasm of vagina 268591956 Z12.72 Heterogene ously dense breast composition 161855645 R92.2 Screening mammogram due nowadjunct MRI screening due at 6 months Family his tory of breast cancer 399186558 Z80.3 family history of breast cancer: maternal aunt: paternal aunt: paternal cousinsee above note Computed t omography result abnormal 269371791 R93.[address] completed at [facility] recently revealed right floating clip from previous tubal ligationwi ll obtain records for reviewadvi sed patient will then review with Dr. Magda smith contact patient if follow up needed Menopausal flushing 1983 71069 N95.1 Discussed risk and benefits of HRT with patientAls o discussed FDA approved Brisdellep atient reports that she is not interested in medication at this time [id number] MONICA FULLER [facility] [address] [place] [address] 04/15/2024 15:09:46 04/15/2024 15:54:17 Gynecologic examination 06203116 Z01.419 PAP of vaginal cuff todaywill contact patient with resultspat ient to follow up in one year Screening for malignant neoplasm of vagina 812311367 Z12.72 [facility] for [facility] neoplasm of breast 7304650858 99985 Z91.89 repeat MRI - adjunct screening Heterogene ously dense breast composition 725303518 R92.2 patient doing adjunct MRI screening Screening for malignant neoplasm of breast 909593987 Z12.39 repeat screening mammogram due after 07/18/24 [...] Thompson Member ID Guarantor Name 07/18/2024 1 [employer] [id number] Pato Goldman a [id number] Enid Goldmana 06/08/2020 1 [facility] [id number] Robe HookAcqu a [id number] Enid Goldmana 04/26/2020 PAYMENT PLAN Enid Goldmana 04/03/2022 1 [facility] [id number] Pato HookAcqu a [id number] Enid Goldmana 03/25/2019 1 [facility] [id number] Robe HookAcqu a [id number] Enid Goldmana 11/04/2023 PAYMENT PLAN Enid Quispe Notes Date Note Type Note Provider Name [...] like STD screening today. SHAAN GOMEZ PA-C [facility] [place], [address], [facility] 03/29/2021 16:05:40 01/08/2022 text/html Enid comes in [...] She says when she travels outside the [facility] that her symptoms all resolved. She also [...] 113% DLCO 104% NICK CHOW MD [address] [place], [address], [facility] 01/08/2022 16:12:01 04/03/2022 text/html 47 yo here [...] no issues or concerns.Planning to move to [place] next summer after her son graduates from high school SHAAN GOMEZ PA-C [address] [place], [address], [facility] 04/03/2022 16:06:59 04/11/2023 text/html 48 year old [...] 08/10/19: normal: repeat 10 years MICHAEL BOYLE, MONICA [address] [place], [address], [facility] 04/11/2023 15:46:09 04/15/2024 text/html 49 year old christina pastrana presents today for annual WWElast PAP: 04/11/23: vaginal smear: negative with negative HPV co testinghistory of LEEP 2014: Cryo times 4 before age 22: yearly PAP through 2024history of hysterectomy with BSO 2020 - Dr. Rice repeat PAP todaylast mammogram: 07/18/23: BI-RADS category 1, Negative. : heterogeneously dense breast tissueMRI: 05/10/23: BI-RADS category 2, BenignTC score 24.09%family history of breast cancer: maternal aunt: paternal aunt: paternal cousindenies family history of colon, uterine or ovarian cancercolon screening: colonoscopy: 08/10/19: normal: repeat 10 years MICHAEL BOYLE, REGISTERED ART THERAPIST [address] [place], [address], [facility] 04/15/2024 15:56:38 OBGyn Episode No OBEpisode recorded.
--- OUTSIDE RECORDS SUMMARY | 2025-01-30 08:47 | XMS_ITS | Clinical Summary ---
Author Organization [facility] Address [address] [place] [address] Care Team Providers Care Float Builder Name Role Phone Handy Lexi Julian ANDERSON Primary Care Provider +1- [phone] Allergies No known active allergies Medications Mounjaro 12.5 MG/0.5ML solution auto-injector solution pen-injector Active SUMAtriptan (Imitrex) 50 MG tablet Take 1 tablet (50 mg) by mouth. Active Trulance 3 MG tablet Take 1 tablet by mouth 1 (one) time each day. Active montelukast (Singulair) 10 MG tablet Take 1 tablet (10 mg) by mouth 1 (one) time each day. Active levocetirizine (Xyzal) 5 MG tablet Take 1 tablet (5 mg) by mouth 1 (one) time each day in the evening. Active magnesium 30 MG tablet Take 1 tablet (30 mg) by mouth 2 (two) times a day. Active albuterol 108 (90 Base) MCG/ACT inhaler Inhale 2 puffs every 4 (four) hours as needed. Active baclofen (Lioresal) 10 MG tablet TAKE 1 TABLET BY MOUTH ONCE DAILY NEEDED FOR MUSCLE SPASM 04/25/2024 Active cyclobenzaprine (Flexeril) 10 MG tablet Take 1 tablet by mouth 3 (three) times a day as needed. Active dicyclomine (Bentyl) 20 MG tablet Take 1 tablet by mouth 3 (three) times a day. Active ondansetron (Zofran) 4 MG tablet Take 1 tablet by mouth every 8 hours as needed for nausea or vomiting. 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 Elevated triglycerides with high cholesterol Irritable bowel syndrome with constipation 11/02 [place] (nonalcoholic steatohepatitis) 11/02/2024 Pancreatitis 11/02/2024 Restless leg 11/02/2024 Encounters Date Type Department Care Team Description 11/03/2024 3:00 PM EDT Office Visit Medical Office Building Surgical Specialties [address] [facility], [address] [place] [address] Mark Nolasco MD Primary hyperparathyroidism (CMS/HCC) (Primary Dx); Osteopenia of necks of both femurs; Fatigue, unspecified type; Kidney stones 11/03/2024 1:38 PM EDT - 11/03/2024 11:59 PM EDT Hospital Encounter [facility] [address] [facility], [address] [place] [address] Primary hyperparathyroidism (CMS/HCC) Discharge Disposition: Home or Self Care 11/03/2024 Orders Only External Location [address] [place] [address] Provider, External 11/03/2024 Travel 11/02/2024 Abstract Medical Office Building Surgical Specialties [address] [facility], [address] [place] [address] Yash Nassar from Last 3 Months Immunizations Immunization Administration Dates Next Due Hep A / Hep B 08/15/2022,07/31/2018,07/01/2018 Influenza, injectable, quadrivalent 04/29/2019 Influenza, injectable, quadr ivalent, preservative free 07/01/2018 Family History Medical History Relation Name Comments Alcohol abuse Father Anthony Cancer Father's Sister Lanor Hypertension Maternal Grandfather Trent Kidney disease Maternal Grandfather Trent Stroke Maternal Grandfather Trent Heart disease Maternal Grandmother Letha Hypertension Maternal Grandmother Boles Vision loss Maternal Grandmother Boles Arthritis Mother Maylin Diabetes Mother Maylin Cancer Mother's Sister Paulino Mental illness Paternal Grandmother Senia Drug abuse Sister Gracie Relation Name Status Comments Father Anthony Father's Sister Lanor Maternal Grandfather Trent Maternal Grandmother Letha Mother Maylin Mother's Sister Paulino Paternal Grandmother Senia Bowman Social History Tobacco Use Types Packs/Day Years Used Date Smoking Tobacco: Former Cigarettes Smokeless Tobacco: Never Tobacco Cessation:Counseling Given: Not Answered Humiliation, Afraid, Rape, and Kick questionnair e Answer Date Recorded Within the last year, have y ou been afraid of your partner or ex-partner? No 08/26/2024 Within the last year, have y ou been humiliated or emotionally abused in other ways by your partner or ex-partner? No Within the last year, have y ou been kicked, hit, slapped, or otherwise physically hurt by your partner or ex-partner? No 08/26/2024 Within the last year, have y ou been raped or forced to have any kind of sexual activity by your partner or ex-partner? No 08/26/2024 Social Connection and Isolation Panel Answer Date Recorded In a typical week, how many times do you talk on the phone with family, friends, or neighbors? More than three times a week 08/26/2024 How often do you get togethe r with friends or relatives? More than three times a week 08/26/2024 How often do you attend [facility] or gnosticism services? More than 4 times per year 08/26/2024 Do you belong to any clubs o r organizations such as religion groups, unions, fraternal or athletic groups, or school groups? Yes 08/26/2024 How often do you attend meet ings of the clubs or organizations you belong to? More than 4 times per year 08/26/2024 Are you , , di vorced, , never , or living with a partner? 08/26/2024 AUDIT-C Answer Date Recorded Q1: How often do you have a drink containing alcohol? Never 08/26/2024 Q2: How many drinks containi ng alcohol do you have on a typical day when you are drinking? Patient does not drink Q3: How often do you have si x or more drinks on one occasion? Never 08/26/2024 Overall Financial Resource Strain (CARDIA) Answe r Date Recorded How hard is it for you to pa y for the very basics like food, housing, medical care, and heating? Not hard at all 08/26/2024 PHQ-2 Answer Date Recorded Patient Health Questionnaire-2 Score 0 08/26/2024 [facility] [place] [facility] Occupat ional Health - Occupational Stress Questionnaire Answer Date Recorded Do you feel stress - tense, restless, nervous, or anxious, or unable to sleep at night because your mind is troubled all the time - these days? Not at all 08/26/2024 Exercise Vital Sign Answer Date Recorde d On average, how many days pe r week do you engage in moderate to strenuous exercise (like a brisk walk)? 7 days 08/26/2024 On average, how many minutes do you engage in exercise at this level? 60 min 08/26/2024 Hunger Vital Sign Answer Date Recorded Within the past 12 months, y ou worried that your food would run out before you got the money to buy more. Never true 08/26/19 25 Within the past 12 months, t he food you bought just didn't last and you didn't have money to get more. Never true 08/26/2024 PRAPARE - Transportation Answer Date Re corded In the past 12 months, has l ack of transportation kept you from medical appointments or from getting medications? No 08/15 In the past 12 months, has l ack of transportation kept you from meetings, work, or from getting things needed for daily living? No 08/26/2024 Housing Stability Vital Sign Answer Elton e Recorded In the last 12 months, was t here a time when you were not able to pay the mortgage or rent on time? No 08/26/2024 Number of Times Moved in the Last Year Not on fi le 08/26/2024 At any time in the past 12 m [facility], were you homeless or living in a fdc (including now)? No 08/26/2024 Utilities Answer Date Recorded In the past 12 months has th e electric, gas, oil, or water company threatened to shut off services in your home? No 08/26/2024 Comments Unknown Sex and Gender Information Value Date Recorded Sex Assigned at Not on file Legal Sex Female 6:15 PM EDT Gender Identity Not on file Sexual Orientation Not on file Last Filed Vital Signs Vital Sign Reading Time Taken Comments Blood Pressure 93/63 11/03/2024 2:24 PM EDT Pulse 63 11/03/2024 2:24 PM EDT Temperature 36.9 C (98.4 F) 11/03/2024 2:24 PM EDT Respiratory Rate 16 08/26/2024 2:38 PM EST Oxygen Saturation 97% 11/03/2024 2:24 PM EDT Inhaled Oxygen Concentration - - Weight 61.7 kg (136 lb 0.4 oz) 11/03/2024 2:24 P M EDT Height 162.6 cm (5' 4 ) 11/03/2024 2:24 PM EDT Body Mass Index 23.35 11/03/2024 2:24 PM EDT Plan of Treatment Upcoming Encounters Date Type Department Care Team ([facility] st Contact Info) Description 05/18/2025 10:00 AM EST Office Visit Medical Office Building Surgical Specialties [address] [facility] [address], [address] [place] [address] Mark Nolasco MD [address] [facility] [address] [place] [address] Health Maintenance Due Date Last Done Comments [facility]-Diabetes: Hemoglobin A1C 1975 [facility]-HIV Screening 1975 [facility]-Hepatitis C Screening 1975 [facility]-Infant/Child/Adol SDOH Screenings 1975 Diabetes: Dental Exam 1985 [facility]-DTaP,Tdap,and Td Vaccine s (1 - Tdap) 1994 [facility]-Pneumococcal Vaccine: 50 + Years (1 of 2 - PCV) 1994 [facility]-Pap Smear 01/24/1996 [facility]-Cervical Cancer Screening 2005 [facility]-HPV/Cotest 2005 CT Colonography 01/24/2020 Colonoscopy 01/24/2020 FIT-DNA 01/24/2020 FIT 01/24/2020 FOBT 01/24/2020 Sigmoidoscopy 01/24/2020 [facility]-Colorectal Cancer Screening 01/24/2020 [id number] Vaccine ( season) 2024 [facility]-Breast Cancer Screening 2025 [facility]-Zoster Vaccines (1 of 2) 2025 [facility]- SDOH Screenings 02/23/2025 [facility]-Adult SDOH Screenings 02/23/2025 08/26/2024 [facility]-Influenza Vaccine (#1) 03/15/202504/29, 07/01/2018 [facility]-Depression Screening 08/26/2025 08/26/2024 [facility]-Hepatitis A Vaccines Completed 023, 07/31/2018, 07/01/2018 [facility]-Hepatitis B Vaccines Completed 023, 07/31/2018, 07/01/2018 HPV Vaccines Aged Out No longer eligi ble based on patient's age to complete this topic [facility]-HIB Vaccines Aged Out No longer e ligible based on patient's age to complete this topic [facility]-IPV Vaccines Aged Out No longer e ligible based on patient's age to complete this topic [facility]-Rotavirus Vaccines Aged Out No lo nger eligible based on patient's age to complete this topic Procedures Procedure Name Priority Date/Time Associated Diagnosis Comments DEXA BONE DENSITY EXTREMITY Routine 11/03/2024 1:43 PM EDT Primary hyperparathyroidism (CMS/HCC) DEXA BONE DENSITY Routine 11/03/2024 1:3 8 PM EDT Primary hyperparathyroidism (CMS/HCC) POC ULTRASOUND 11/03/2024 from Last 3 Months Results * Dexa Bone Density Extremity (11/03/2024 1:43 PM EDT) Anatomical Region Laterality Modality Wrist Radiographic Chantal ging Narrative 11/08/2024 6:37 PM EDT [facility] [address] [place] [address] DXA Bone Densitometry Report: [Date of exam] BMD test performed using the [employer] HealthXA DXA System (analysis version: 14.10) manufactured by [employer]. REFERRING PROVIDER: Dr. Guera Joyce APRN CLINICAL INFORMATION: PATIENT NAME: Enid StricklandlBry PATIENT AGE: 49 y.o. LEGAL SEX: female RADIOGRAPHIC VIEWS: Sites scanned: AP Spine, HIP Right , HIP Left, RADIUS Right , and RADIUS Left COMPARISON STUDY: DXA Axial Prior studies are not available for comparison FINDINGS: Based on WHO criteria (post-menopausal female) the diagnosis is Osteopenia The lowest T score is -2.1 in the Left Hip FRAX (10-year probability of fracture) - Major Osteoporotic: 12.8 %; Hip: 2.6 % The presence of arthritic or degenerative joint changes in the spine could artefactually increase measured BMD. TBS: The TBS L1-L4 of 1.399 indicates normal microarchitecture FRAX (10-year probability of fracture) - corrected for TBS: Major Osteoporotic: 10.6 %; Hip: 1.3 % TREATMENT RECOMMENDATIONS: Treatment decisions should be based on clinical indications. Suggest general measures to optimize calcium and vitamin D status, fall prevention measures and reduce fracture risk. FRAX threshold not met criteria for consideration of therapy Consider repeat BMD in 2-3 years Guera Joyce APRN IMG DXA PROCEDURES Final Res ult * Dexa Bone Density (11/03/2024 1:38 PM EDT) Anatomical Region Laterality Modality L-spine Radiographic Chantal ging Narrative 11/08/2024 6:36 PM EDT [facility] [address] [place] [address] DXA Bone Densitometry Report: [Date of exam] BMD test performed using the [employer] HealthXA DXA System (analysis version: 14.10) manufactured by [employer]. REFERRING PROVIDER: Dr. Guera Joyce, MONICA CLINICAL INFORMATION: PATIENT NAME: Enid Almazan PATIENT AGE: 49 y.o. LEGAL SEX: female RADIOGRAPHIC VIEWS: Sites scanned: AP Spine, HIP Right , HIP Left, RADIUS Right , and RADIUS Left COMPARISON STUDY: DXA Axial Prior studies are not available for comparison FINDINGS: Based on WHO criteria (post-menopausal female) the diagnosis is Osteopenia The lowest T score is -2.1 in the Left Hip FRAX (10-year probability of fracture) - Major Osteoporotic: 12.8 %; Hip: 2.6 % The presence of arthritic or degenerative joint changes in the spine could artefactually increase measured BMD. TBS: The TBS L1-L4 of 1.399 indicates normal microarchitecture FRAX (10-year probability of fracture) - corrected for TBS: Major Osteoporotic: 10.6 %; Hip: 1.3 % TREATMENT RECOMMENDATIONS: Treatment decisions should be based on clinical indications. Suggest general measures to optimize calcium and vitamin D status, fall prevention measures and reduce fracture risk. FRAX threshold not met criteria for consideration of therapy Consider repeat BMD in 2-3 years us Guera Joyce [employer] IMG DXA PROCEDURES Final Res ult * POC Imaging (11/03/2024) Anatomical Region Laterality Modality Pelvis Other 11/03/2024 us External Provider IMG POINT OF CARE ULTRASOUND F inal Result from Last 3 Months Insurance ANTH Care Teams Float Builder Relationship Specialty Start Date End Date Lexi Murrell APRN [address] [place] [address] PCP - General 08/26/24
--- OUTSIDE RECORDS SUMMARY | 2025-01-30 08:47 | XMS_ITS | Encounter Summary ---
Author Organization Healthcare Address [address] [place] [address] Care Team Providers Care Autocad Operator Name Role Phone Lexi Murrell TEAM FOREMAN Primary Care Provider +1- [phone] Encounter Details Date Type Department Care Team (Late Contact Info) Description 07/14/2024 Orders Only External Location [address] [place] [address] Lexi Murrell, TEAM FOREMAN [address] [place] [address] Social History Tobacco Use Types Packs/Day Years Used Date Smoking Tobacco: Never Assessed Comments Unknown Sex and Gender Information Value Date Recorded Sex Assigned at Not on file Legal Sex Female 6:15 PM EDT Gender Identity Not on file Sexual Orientation Not on file documented as of this encounter Plan of Treatment Upcoming Encounters Date Type Department Care Team (Late st Contact Info) Description 05/18/2025 10:00 AM EST Office Visit Medical Office Building Surgical Specialties [address] [facility], [address] [place] [address] Mark Nolasco MD [address] [facility] [address] [place] [address] documented as of this encounter Procedures Procedure Name Priority Date/Time Associated Diagnosis Comments NM OUTSIDE IMAGES 07/14/2024 8:52 AM EST documented in this encounter Results * NM OUTSIDE IMAGES (07/14/2024 8:52 AM EST) Anatomical Region Laterality Modality Nuclear Medicine 07/14/2024 8:52 AM EST Lexi Murrell TEAM FOREMAN IMG NM PROCEDURES Final Re sult documented in this encounter Visit Diagnoses Not on filedocumented in this encounter Care Teams Autocad Operator Relationship Specialty Start Date End Date Lexi Murrell APRN [address] [place] [address] PCP - General 08/26/24 documented as of this encounter
[2025-01-30 11:00] LABS: Thyroid Stimulating Hormone 2.16 uIU/mL (0.465-4.68)
[2025-01-31 06:52] LABS: Triiodothyronine (T3) Free 3.3 pg/mL (2.0-4.4)
[2025-01-31 12:16] LABS: Cortisol,AM 7.6 ug/dL (6.2-19.4)
== END 2025-01-30 23:59 | disposition home or self-care (01) ==
LOC: LAB 08:45
PROVIDERS: PCP Nurse Practitioner Family; Visit Provider Nurse Practitioner Family
DX: E21.3 Hyperparathyroidism, unspecified (principal); R42 Dizziness and giddiness; I95.9 Hypotension, unspecified; R53.83 Other fatigue; R23.2 Flushing
CPT/HCPCS: 36415; 82024; 82384; 82533; 84443; 84481

== ENCOUNTER 2025-03-09 10:45 | Outpatient (CLI) | payer OTHER, SELFPAY ==
[2025-03-09 15:00] LABS: Influenza A, PCR Not Detected (NotDetected); Influenza B, PCR Not Detected (NotDetected)
[2025-03-09 19:04] LABS: Coronavirus 19, PCR Detected (NotDetected)
--- OUTSIDE RECORDS SUMMARY | 2025-03-10 13:29 | XMS_ITS | Clinical Summary ---
Author Organization [facility] Address [address] [place] [address] Care Team Providers Care Technical Account Manager Name Role Phone Handy Lexi Julian ANDERSON Primary Care Provider +1- [phone] Allergies No known active allergies Medications Mounjaro [...] steatohepatitis) 11/02/2024 Pancreatitis 11/02/2024 Restless leg 11/02/2024 Immunizations Immunization Administration Dates Next Due Hep A / Hep B 08/15/2022,07/31/2018,07/01/2018 Influenza, injectable, quadrivalent 04/29/2019 Influenza, injectable, quadr ivalent, preservative free 07/01/2018 Family History Medical History Relation Name Comments Alcohol abuse Father Anthony Cancer Father's Sister Lanor Hypertension Maternal Grandfather Trent Kidney disease Maternal Grandfather Trent Stroke Maternal Grandfather Trent Heart disease Maternal Grandmother Letha Hypertension Maternal Grandmother Letha Vision loss Maternal Grandmother Letha Arthritis Mother Maylin Diabetes Mother Maylin Cancer Mother's Sister Paulino Mental illness Paternal Grandmother Senia Drug abuse Sister Gracie Relation Name Status Comments Father Anthony Father's Sister Liya Maternal Grandfather Trent Maternal Grandmother Letha Mother Maylin Mother's Sister Paulino Paternal Grandmother Senia Sister Gracie Social History Tobacco Use Types Packs/Day Years [...] week 08/26/2024 How often do you attend chur or hoahaoism services? More than 4 times per year 08/26/2024 Do you belong to any clubs o r organizations such as voodoo groups, unions, fraternal or athletic groups, or [...] Recorded Patient Health Questionnaire-2 Score 0 08/26/2024 [facility] - Occupational Stress [...] any time in the past 12 [facility], were you homeless or living in a intermediate (including now)? No 08/26/2024 Utilities Answer Date [...] Medical Office Building Surgical Specialties [address], [address] [place] [address] Mark Nolasco MD [address] [facility] [address] [place] [address] Health Maintenance Due Date Last Done Comments [facility]-Diabetes: Hemoglobin A1C 1975 [facility]-HIV Screening 1975 [facility]-Hepatitis C Screening 1975 [facility]-/Child/Adol SDOH Screenings 1975 Diabetes: Dental Exam 1985 [facility]-DTaP,Tdap,and Td Vaccine s (1 - Tdap) 1994 [facility]-Pneumococcal Vaccine: 50 + Years (1 of 2 - PCV) 1994 [facility]-Pap Smear 01/24/1996 [facility]-Cervical Cancer Screening 2005 [facility]-HPV/Cotest 2005 CT Colonography 01/24/2020 Colonoscopy 01/24/2020 FIT-DNA 01/24/2020 FIT 01/24/2020 FOBT 01/24/2020 Sigmoidoscopy 01/24/2020 [facility]-Colorectal Cancer Screening 01/24/2020 [id number] Vaccine (1 - 2023- season) 2024 [facility]-Breast Cancer Screening 2025 [facility]-Zoster [...] on patient's age to complete this topic Insurance ANTHEM Care Teams Technical Account Manager Relationship Specialty Start Date End Date Lexi Murrell APRN [address] [place] [address] PCP - General 08/26/24
--- OUTSIDE RECORDS SUMMARY | 2025-03-10 13:29 | XMS_ITS | Encounter Summary ---
Author Organization Healthcare Address [address] [place] [address] Care Team Providers Care Pst Specialist Name Role Phone Lexi Murrell APRN Primary Care Provider +1- [phone] Encounter Details Date Type Department Care Team (Late Contact Info) Description 07/14/2024 Orders Only External Location [address] [place] [address] Lexi Murrell, HOT HEADER OPERATOR [address] [place] [address] Social History Tobacco Use Types Packs/Day Years [...] Medical Office Building Surgical Specialties [address], [address] [place] [address] Mark Nolasco MD [address] [facility] [address] [place] [address] documented as of this encounter Procedures Procedure Name Priority Date/Time Associated Diagnosis Comments NM OUTSIDE IMAGES 07/14/2024 8:52 AM EST documented in this encounter Results * NM OUTSIDE IMAGES (07/14/2024 8:52 AM EST) Anatomical Region Laterality Modality Nuclear Medicine 07/14/2024 8:52 AM EST Lexi Murrell HOT HEADER OPERATOR IMG NM PROCEDURES Final Re sult documented in this encounter Visit Diagnoses Not on filedocumented in this encounter Care Teams Pst Specialist Relationship Specialty Start Date End Date Lexi Murrell APRN [address] [place] [address] PCP - General 08/26/24 documented as of this encounter
--- OUTSIDE RECORDS SUMMARY | 2025-03-10 13:29 | XMS_ITS | Clinical Summary ---
Author Organization [facility] Address [address] [place] [address] Care Team Providers Care Plasma Cutting Machine Operator Name Role Phone Nino Rose MD Primary [...] VACCINE 04/14/2025 Medical Devices Implanted Type Area Business Applications Developer Device Identifier Shelf Expiration Date Model / Serial / Lot Seal Fibrin Tisseel Fz 4ml - [id number] Implanted:Qty: 1 on 06/01/2020 by Jacqueline Rice MD at [facility] Implant [facility] 11/11/2021 [id number] / / [id number] Dev Cls Wnd Vloc/180 Michelle Abs 1/2cir Sz0 23cm 37mm Grn - [id number] Implanted:Qty: 3 on 06/01/2020 by Jacqueline Rice MD at [facility] Implant COVID[employer] 09/11/2022 [id number] / / [id number] Procedures Procedure Name Priority Date/Time Associated Diagnosis Comments SCANNED - LABS 12/14/2024 SCANNED - CARDIAC CT 12/10/2024 from Last 3 Months Results * LABS SCANNED (12/14/2024) [facility] New Onbase LAB BLOOD ORDERABLES Final Re sult * CARDIAC CT SCANNED (12/10/2024) Anatomical Region Laterality Modality Computed Tomogra phy [facility] New Onbase IMG CT ORDERABLES Final Resul t from Last 3 Months Insurance [place] [facility] Advance Directives * CPR (Attempt to Resuscitate) (Latest Code Status on File) Date Activated Date Inactivated Comments 06/01/2020 2:59 PM 06/02/2020 3:56 PM Question Answer Comments Code Status (Patient has no pulse and is not breathing): CPR (Attempt to Resuscitate) Medical Interventions (Patie nt has pulse or is breathing): Full Level Of Support Discussed With: Patient Care Teams Plasma Cutting Machine Operator Relationship Specialty Start Date End Date Nino Rose MD [address] [address] [address] [place] [address] PCP - General Family Medicine 05/29/20
== END 2025-03-09 23:59 | disposition home or self-care (01) ==
LOC: LAB.DROPOF 03-10 13:26
PROVIDERS: PCP Nurse Practitioner; Visit Provider Nurse Practitioner
DX: J06.9 Acute upper respiratory infection, unspecified (principal)
CPT/HCPCS: 87631

== ENCOUNTER 2025-05-04 15:39 | Outpatient (CLI) | payer OTHER, SELFPAY ==
--- OUTSIDE RECORDS SUMMARY | 2025-05-04 15:43 | XMS_ITS | Clinical Summary ---
Author Organization [facility] Address [address] [place] [address] Care Team Providers Care Cloth Inspector Name Role Phone Nino Rose MD Primary [...] ANNUAL PHYSICAL 05/29/2020 HEPATITIS C SCREENING 05/29/2020 Pneumococcal Vaccine 50+ (1 of 1 - PCV) 2025 ZOSTER VACCINE (1 of 2) 2025 INFLUENZA VACCINE 02/12/2025 Medical Devices Implanted Type Area Tool Clerk Device Identifier Shelf Expiration Date Model / Serial / Lot Seal Fibrin Tisseel Fz 4ml - [id number] Implanted:Qty: 1 on 06/01/2020 by Jacqueline Rice MD at [facility] Implant [facility] 11/11/2021 [id number] / / [id number] Dev Cls Wnd Vloc/180 Michelle Abs 2cir Sz0 23cm 37mm Grn - [id number] Implanted:Qty: 3 on 06/01/2020 by Jacqueline Rice MD at [facility] Implant COVIDIEN 09/11/2022 [id number] / / [id number] Insurance Advance Directives * CPR (Attempt to Resuscitate) (Latest Code Status on File) Date Activated Date Inactivated Comments 06/01/2020 2:59 PM 06/02/2020 3:56 PM Question Answer Comments Code Status (Patient has no pulse and is not breathing): CPR (Attempt to Resuscitate) Medical Interventions (Patie nt has pulse or is breathing): Full Level Of Support Discussed With: Patient Care Teams Cloth Inspector Relationship Specialty Start Date End Date Nino Rose MD [facility] [address] [facility] [address] [facility] [address] [place] [address] PCP - General Family Medicine 05/29/20
--- OUTSIDE RECORDS SUMMARY | 2025-05-04 15:43 | XMS_ITS | Continuity of Care Document ---
Author Organization [facility] Kelsie borrero [facility] Address [address] [place] [address] Assessment No assessment recorded. Plan of Treatment Reminders Order Date Submit Date Provider Last Modified By Organization Details Last Modified Time Details Appointments MAMMOGR AM 2024 02:15P M MAMMOGRAM Not available Not available Not available ULTRASO UND 2024 02:40P M ULTRASOUND Not available Not available Not available ANNUAL GIS PROGRAMMER 2025 03:00P M MICHAEL BOYLE [facility] Not available Not available Not available Lab pap, LB 2024 025 [facility], [address] [place] [address], [phone], 04/23/2025 15:04:56 HPV DNA, high-ri sk 2024 025 [facility], [address] [place] [address], [phone], 04/20/2025 18:10:25 Referral None recorde d. Procedures None recorde d. Surgeries None recorde d. Imaging MAMMO, diagnos tic, tomosyn thesis, munira gil, w/ CAD 2024 025 [email or web address] 3 [facility], [address] [place] [address], [id number], 04/20/2025 09:54:21 US, breast, munira gil 2024 025 [email or web address] 3 [facility], [address] [place], [address], 04/20/2025 09:54:36 Medication Orders None recorde d. Patient TargetsNo targets recorded. Patient InstructionsNo instructions recorded. Reason for Referral None Reported. Results Created Date Observation Date Name Description Value Unit Range Abnormal Flag Note LastModifiedBy Organization Detail LastModifiedTime 04/19/2004/20/2025 HPV, REFLE X TO GENOT YPE 16,18 /45 high risk HPV Negati ve negati ve [...] other avail able labor atory and clini jerri data. A negat veronica Aptim a HPV [...] under age 30 with dario l cervi jerri cytol ogy. The Aptim a HPV assay is not inten ded to subst itute for regul ar cervi jerri cytol ogy. Test metho dolog y is Nucle ic Acid Ampli ficat ion (NAAT ) Not Available [facility] [address] [place] [address], [phone], 04/20/2025 18:10:25 04/19/20 25 04/19/2025 PAP SMEAR Pap smear SEE BELOW normal Depar tment of Patho logy GYNEC OLOGI JERRI CYTOL OGY REPOR T NAME: SHANTI ALLISON PATHO LOGY NO.: [id number] Copy to: [facility] OF SPECI MEN: VAGIN AL-TH IN PREP RELEV ANT HISTO RY: No LMP given . Menop ause: Y Hyste recto my: Y Comme nt: HPV CO-TE STING SPECI MEN ADEQU ACY SATIS FACTO RY FOR EVALU ATION . VAGIN AL SMEAR GENER AL CATEG ORIZA TION NEGAT VERONICA FOR INTRA EPITH ELIAL LESIO N OR MALIG LYDIA RELAT ED LABOR ATORY RESUL TS HIGH RISK HPV Negat veronica 2024 15:[address], CT (ASCP ) Nimco d Out Date: 04/23 15:04 Cervi jerri/v agina l cytol ogy is a scree [...] to navdeep t in prima ry cervi jerri cance r scree elías of ThinP rep(R ) Pap test slide s. Page 1 of 1 Not Available [facility] [address] [facility], [place], [address], 04/23/2025 15:04:56 Result Notes None recorded. Problems Name Problem SNOMED Code Status Onset Date Resolution Date Notes Provider Name and Address Organization Details Recorded Time Urinary tract infectious disease 63857367 Active 2015 From Automated Load;Provi shobha: Beiting, Jacqueline;S tatus: Active Not Available [facility] 6 03:56:29 Cyst of ovary 60438321 Active 2015 From Automated Load;Provi shobha: Beiting, Jacqueline;S tatus: Active Not Available [facility] 6 03:56:29 Problem Notes None recorded. Procedures Surgical History Date Name Laterality Status Provider Name and Address Organization Details Recorded Time 025 Pap Smear collection completed MICHAEL BOYLE, [facility] [address] [place], [address], [facility] 04/19/2025 15:32:51 025 Most Recent Bone Density completed Miriam Gordon [facility] 04/19/2025 14:45:01 024 Pap Smear collection completed MICHAEL BOYLE, [facility] [address] [place], [address], [facility] 04/15/2024 15:55:40 024 Date of Last [facility]ammogram [facility] 04/19/2025 14:40:29 023 Pap Smear collection completed MICHAEL BOYLE, [facility] [address] [place], [address], [facility] 04/11/2023 15:43:20 023 Date of Last Pap Smear completed Katty Chao [facility] 04/15/2024 09:45:53 022 Airway Resistance completed [facility] 01/08/2022 14:35:00 022 Diffusion Capacity completed [facility] 01/08/2022 14:34:56 022 Lung Volumes, Plethysmography completed [facility] 01/08/2022 14:35:02 022 Demonstration Aerosol/Generator/ Nebulizer/Opticham jess completed Mattie Hannon [facility] 01/08/2022 14:41:59 [address] [facility] 01/08/20[facility] 14:35:05 020 ROBOTIC ASSISTED HYSTERECTOMY WITH SALPINGECTOMY (SURG) completed Tere Sousa [facility] 06/01/2020 15:10:26 020 Colonoscopy completed Mackenzie Fowler [facility] 01/12/2020 10:28:29 020 Date of Last Colonoscopy completed Miriam Gordon [facility] 04/19/2025 14:34:21 019 Transvaginal Ultrasound; Non-OB completed JACQUELINE RICE MD [address] [place], [address], [facility] 04/30/2019 12:42:57 018 Suture/Staple removal completed Jimi Whelan [facility] 03/31/2018 10:02:58 018 Wound Repair; Intermediate completed DAMEON MULLINS DO [address] [place], [address], [facility] 03/21/2018 10:17:34 018 Excision BN Lesion; scalp, neck, hands, feet, genitalia completed DAMEON MULLINS DO [address] [place], [address], [facility] 03/21/2018 10:17:29 014 Other [facility] 03/05/2018 11:03:13 Other completed [facility] 03/05/2018 10:57:08 delivery completed [facility] 03/05/2018 10:57:16 [facility]ils [facility] 03/05/2018 10:57:24 Other [facility] 03/05/2018 10:57:45 Other completed [facility] 03/05/2018 10:57:52 Imaging Results None recorded. Procedure Notes None recorded. Medical Equipment None Reported. Allergies No known drug allergies Medications Name Sig Start Date Stop Date Status Note LastModified by Organization Details LastModified Time atorvasta tin 40 mg tablet Take 1 tablet every day by oral route. 04/19 completed Not Available Not Available Not Available metformin 500 mg tablet Take 1 [...] completed Not Available Not Available Not Available ondansetr on HCl 4 mg tablet Take 2 tablets twice a day by oral route. active Not Available Not Available No t Available sumatript an 50 mg tablet Take by oral route. active not taking Not Available Not Available Not Available phentermi ne 37.5 mg tablet Take [...] Not Available Mobic 15 mg tablet Daily 04/19 completed Frequenc y: daily;Me dication Descript ion: meloxica m; Dosage:1 ; Route:or al; refills: 5; Quantity :30 tablet Not Available Not Available Not Available dicyclomi ne 20 mg tablet Take 1 tablet 4 times a day by oral route. 04/03 completed Not Available Not Available Not Available baclofen 10 mg tablet Take 1 tablet 3 times a day by oral route. active Not Available Not Available No t Available monteluka st 10 mg tablet Take 1 tablet every day by oral route. 04/19 completed Not Available Not Available Not Available ibuprofen 600 mg tablet Take 1 tablet 3 times a day by oral route. 04/03 completed Not Available Not Available Not Available Nunez 5 mg-325 mg tablet Take 1 tablet every 6 hours by oral route. 08/31 completed Not Available Not Available Not Available magnesium 2 at night active prn Not Available Not Available No t Available zinc active Not Available Not Availa ble Not Available tramadol 04/15 completed Not Available Not Available Not Available ropinirol e active not taking Not Available Not Available Not Available baclofen [...] Not Available No t Available Fish Oil [place] 3-6-9 2 daily active Not Available Not [...] tablet every day by oral route. active not taking Not Available Not Available Not Available Ozempic 0.25 mg or 0.5 mg (2 mg/1.5 mL) subcutane ous pen injector Inject by subcutan eous route. 04/15 completed Not Available Not Available Not Available turmeric 2 daily active Not Available Not Ashwini ilable Not Available castillo lamas root extract 2-4 daily as needed active Not Available Not Available No t Available Mounjaro 10 mg/0.5 mL subcutane ous pen injector Inject by subcutan eous route. active Not Available Not Available No t Available Mounjaro 12.5 mg/0.5 mL subcutane ous pen injector Inject every week by subcutan eous route. 04/19 completed Not Available Not Available Not Available buspirone 10 mg capsule Take 1 capsule twice a day by oral route. active Not Available Not Available No t Available Vitals Date Recorded Body height Body mass index (BMI) Body weight Systolic And Diastolic Provider Name and Address Organization Details Last Updated DateTime 04/19/2025 162.56 cm 24.6 kg/m2 34085.11 g 130/74 mm[Hg] Miriam Gordon [facility] 04/19/2025 14:40:14 Social History Question Answer Notes LastModified by Organizat ion Details LastModified Time Tobacco Smoking Status [facility] 13:09:31 What Is Your Level Of Caffeine Consumption? Occasional [email or web address] Information not available 04/19/2025 Marital Status Informatio n not available 03/05/2018 What Was The Date Of Your Most Recent Tobacco Screening? 04/11/2023 Information not available 04/11/2023 What Is Your Relationship Status? [email or web address] Information not available 04/19/2025 Sex: Female Functional Status Question Answer Note LastModified by Organizat ion Details LastModified Time Do you use any illicit or recreational drugs? No [email or web address] Information not available 04/19/2025 What is your level of alcohol consumption? None [email or web address] Information not available 04/19/2025 Mental Status None recorded. Family History Relationship Description Onset Age of this Age Resolved Age Notes LastModified by Organization Details LastModified Time Mother Family history of malignant neoplasm Cervic al cancer Not available 03/05/2018 10:58:51 Mother Diabetes mellitus [email or web address] Not available 2024 14:22:33 Mother Hyperlipidem ia [email or web address] Not available 2024 14:22:33 Maternal Aunt Family history of malignant neoplasm Breast cancer [email or web address] Not available 04/19/2025 14:22:33 Maternal Grandmother Myocardial infarction [email or web address] Not available 04/19 14:22:33 Maternal Grandmother Diabetes mellitus [email or web address] Not available 2024 14:22:33 Maternal Grandmother Hyperlipidem ia [email or web address] Not available 2024 14:22:33 Maternal Grandfather Cerebrovascu lar accident [email or web address] Not available 12/2024 14:22:33 Maternal Grandfather Diabetes mellitus [email or web address] Not available 2024 14:22:33 Maternal Grandfather Hyperlipidem ia [email or web address] Not available 2024 14:22:33 Maternal Grandfather Malignant melanoma [email or web address] Not available 2024 14:22:33 Paternal Aunt Family history of malignant neoplasm Breast cancer [email or web address] Not available 04/19/2025 14:22:33 Unspecified Relation Family history of malignant neoplasm patern al cousin with breas cancer Not available 03/29/2021 15:37:10 Medical History Condition Response Diabetes Y Other Y Bleeding Disorder N Hyperlipidemia Y Cancer N Stroke N Thyroid Problems Y Depression Sleep Apnea N High Cholesterol Y Heart Attack (IA) N Deep Vein Thrombosis N Hypertension N Gynecological History Statement/Question Response Abnormal Pap Yes Date of Last Mammogram 07/18/2023 Flow Heavy Date of LMP 04/17/2020 First day of last menstrual period 04/17 STIs/STDs N Current Control Method Hysterectom y Date of Last Colonoscopy 08/10/2019 Most Recent Bone Density 11/03/2024 Number of pregnancies - full term 0 Number of pregnancies - total living 3 Sexually Active? Y Menses Monthly N Date of Last Pap Smear 04/11/2023 Colonoscopy 08/10/2019 Obstetrics History GPAL:G 4 P 4 0 0 3 Type Value Full Term 4 Living 3 Total 4 Immunizations Vaccine Type Date Status Note Provider Nam e and Address Organization Details Recorded Time Hep A-Hep B 8 completed Not Available [facility] 04/19/2025 14:23:28 Influenza, split virus, quadrivalent, PF 8 completed Not Available [facility] 04/19/2025 14:23:28 Hep A-Hep B 9 completed Not Available [facility] 04/19/2025 14:23:28 Influenza, split virus, quadrivalent, preservative 9 completed Not Available [facility] 04/19/2025 14:23:28 Hep A-Hep B 3 completed Not Available [facility] 04/19/2025 14:23:28 Past Encounters Encounter ID Performer Location Encounter Start Date Encounter Closed Date Diagnosis/Indication Diagnosis SNOMED-CT Code Diagnosis ICD10 Code Diagnosis IMO Codes Diagnosis Note [id number] MICHAEL BOYLE APRN [facility] [address] [place] [id number] 04/19/2025 14:22:32 04/19/2025 15:25:59 Gynecologic examination 10899348 Z01.286 1493026 PAP of vaginal cuff todaywill contact patient with resultspat ient to follow up in one year Screening for malignant neoplasm of vagina 993832626 Z12.72 295494 Heterogene ously dense breast composition 532042128 R92.333 [id number] see note above [facility] for malignant neoplasm of breast 1969336978 31469 Z91.89 56861299 TC = 24.09Discu ssed and encouraged adjunct MRIpatient does not want to do MRI - states that she has to go to tattoo shop to have all piercings removed and replaced.D iscussed contrast mammogram - patient agreeable to plan of care Health Concerns Section Related Observation LastModified by Organization Detai ls LastModified Time None Recorded Concern Status LastModified by Organization Details LastModified Time None Recorded Payers Encounter Date Sequence Insurance Name Policy Number Policy Thompson Covered Member ID Thompson Member ID Guarantor Name 04/19/2025 1 [employer] [id number] Enid Sanchez'Acqu a [id number] Enid Goldmana Notes Date Note Type Note Provider Name and Address Organization Details Recorded Time 04/19/2025 text/html 50 year old female presents today for annual WWElast PAP: 04/11/23: vaginal smear: negative with negative HPV co testinghistory of LEEP 2014: Cryo times 4 before age 22: yearly PAP through 2024history of hysterectomy with BSO 2020 - Dr. Ricerepeat PAP todaylast mammogram: 07/18/23: BI-RADS category 1, Negative. : heterogeneously dense breast tissueMRI: 05/10/23: BI-RADS category 2, BenignTC score 24.09% colon screening: colonoscopy: 08/10/19: normal: repeat 10 yearsfamily history of breast cancer: maternal aunt: paternal aunt: paternal cousindenies family history of colon, uterine or ovarian cancer MICHAEL BOYLE, [facility]AS [address] [place], [address], [facility] 04/19/2025 15:33:21 OBGyn Episode No OBEpisode recorded.
--- OUTSIDE RECORDS SUMMARY | 2025-05-04 15:43 | XMS_ITS | Data Portability ---
Author Organization [facility] MILLY [facility] [facility] [place] CLOSED Address [address] [place] [address] Assessment No assessment recorded. Plan of Treatment Reminders Order Date Submit Date Provider Last Modified By Organization Details Last Modified Time Details Appointments MAMMOGR AM 2024 02:15P M MAMMOGRAM Not available Not available Not available ULTRASO UND 2024 02:40P M ULTRASOUND Not available Not available Not available ANNUAL SILO WORKER 2025 03:00P M MICHAEL BOYLE SUPERVISOR [employer]RIAL GARMENT Not available Not available Not available Lab pap, LB 2024 025 [facility], [address] [place] [address], [address], 04/23/2025 15:04:56 HPV DNA, high-ri sk 2024 025 [facility], [address] [place] [address], [address], 04/20/2025 18:10:25 pap, LB 2023 024 [facility], [address] [place] [address], [address], 04/21/2024 15:12:34 HPV DNA, high-ri sk 2023 024 [facility], [address] [place] [address], [address], 04/17/2024 13:18:13 pap, LB 2022 023 [facility], [address] [place] [address], [address], 04/17/2023 14:34:43 HPV DNA, high-ri sk 2022 023 [facility], [address] [place] [address], [address], 04/16/2023 11:42:50 cytolog y, vaginal /cervic al 2021 022 [facility], [address] [place] [address], [address], 04/09/2022 11:21:32 Referral None recorde d. Procedures None recorde d. Surgeries None recorde d. Imaging MAMMO, diagnos tic, tomosyn thesis, bilater al, w/ CAD 2024 025 [email or web address], [address] [place] [address], [address], 04/20/2025 09:54:21 US, breast, bilater al 2024 025 [email or web address] 3 [facility], [address] [place] [address], [address], 04/20/2025 09:54:36 MRI, breast, bilater al, w/wo contras t [address] [facility], [address] [place] [address], [address], 10/01/2024 10:50:08 MAMMO, screeni ng, tomosyn thesis, bilater al, w/ CAD [address] [facility], [address] [place] [address], [address], 12/09/2024 06:26:02 MAMMO, screeni ng, tomosyn thesis, bilater al, w/ CAD 2022 023 [facility], [address] [place], [address], 07/18/2023 15:32:15 MRI, breast, munira gil, w/wo contras t 2022 023 [facility], [address] [place], [address], 05/12/2023 11:06:38 Medication Orders None recorde d. Patient TargetsNo targets recorded. Patient Instructions Encounter Date Encounter Id Patient Instructions Last Modified By Organization Details Last Modified Time 04/03/2022 [id number] learning about cervical cancer screening Not available 04/03/2022 16:02:46 47 yo here today for annual exam Normal exam, pap with reflex HPV of the cuff - if normal, continue yearly paps through 2024 Mammo up to date Colonoscopy up to date RTC 1 year annual, PRN - may be in [place] by then. Not available 04/03/2022 16:06:25 04/11/2023 [id number] medical record request* [email or web address] Not available 04/12/2023 09:55:49 Reason for Referral None Reported. Results Created Date Observation Date Name Description Value Unit Range Abnormal Flag Note LastModifiedBy Organization Detail LastModifiedTime 04/03/2004/03/2022 PAP SMEAR Pap smear SEE BELOW Depar tment of Patho logy GYNEC OLOGI JEOVANY CYTOL OGY REPOR T NAME: ANNASunni ALCALASHANTI Talamantes PATHO LOGY NO.: [id number] Copy to: [facility] E OF SPECI MEN: CERVI JEOVANY/E NDOCE RVICA L-THI N PREP RELEV ANT HISTO RY: No LMP given . Comme nt: SEND FOR HPV IF ASCUS SPECI MEN ADEQU ACY SATIS FACTO RY FOR EVALU ATION ENDOC ERVIC AL/TR ANSFO RMATI ON ZONE COMPO NENT ABSEN T GENER AL CATEG ORIZA TION NEGAT VERONICA FOR INTRA EPITH ELIAL LESIO N OR MALIG LYDIA RODRIGUEZ RD, CT (ASCP ) Nimco d [...] s. Page 1 of 1 Not Available [facility] [place], [address], 04/09/2022 11:21:32 04/11/20 23 04/16/2023 HPV, HIGH [...] ar cervi jeovany cytol ogy. Not Available [facility] [address] [place], [address], 04/16/2023 11:42:50 04/11/20 23 04/11/2023 PAP SMEAR Pap smear SEE BELOW normal Depar tment of Patho logy GYNEC OLOGI JEOVANY CYTOL OGY REPOR T NAME: SHANTI ALLISON PATHO LOGY NO.: [id number] Copy to: [facility] E OF SPECI MEN: VAGIN AL-TH [...] s. Page 1 of 1 Not Available [facility] [place], [address], 04/17/2023 14:34:43 04/15/20 24 04/17/2024 HPV, HIGH [...] Ampli ficat ion (NAAT ) Not Available [facility] [address] [place] [address], [address], 04/17/2024 13:18:13 04/15/2004/15/2024 PAP SMEAR Pap smear SEE BELOW normal Depar tment of Patho logy GYNEC OLOGI JEOVANY CYTOL OGY REPOR T NAME: SHANTI ALLISON PATHO LOGY NO.: [id number] Copy [...] s. Page 1 of 1 Not Available [facility] [address] [place], [address], 04/21/2024 15:12:34 04/19/20 25 04/20/2025 HPV, REFLE X TO GENOT YPE 16,18 [...] Ampli ficat ion (NAAT ) Not Available [facility] [address] [place], [address], 04/20/2025 18:10:25 04/19/2004/19/2025 PAP SMEAR Pap smear SEE BELOW normal Depar tment of Patho logy GYNEC OLOGI JEOVANY CYTOL OGY REPOR T NAME: SHANTI ALLISON PATHO LOGY NO.: [id number] Copy to: [facility] E OF SPECI MEN: VAGIN AL-TH [...] Nimco d Out Date: 04/23 15:04 Cervi jeovany/v agina l cytol ogy is [...] s. Page 1 of 1 Not Available [facility] [address] [place], [address], 04/23/2025 15:04:56 04/12/2008/16/2022 MRI, thora cic spine , w/ contr ast No observ ation record ed. [email or web address] [facility] [address], [place], [address], 04/25/2023 11:07:56 04/25/2005/06/2022 MAMMO , scree elías, tomos ynthe sis, bilat eral, w/ CAD No observ ation record ed. [facility] [address], [place], [address], 05/02/2023 14:40:28 05/12/2005/10/2023 MRI, breronny t, bilat eral, w/wo contr ast [facility] [address] [facility] [place] [address] Patien t Name: ENID TURK Patien t [...] nium contra st accord ing to the manucyril cturer 's weight -based algori thm for contra st dosage . ([facility] [place] the 7[place] [address]- 325-11 ). Maximu m intens ity projec [...] Salomón Brown MD on 2022 11:01 AM [facility] [address] [place] [address], [address], 05/13/2023 18:37:31 07/18/19 24 07/18/2023 MAMMO , scree elías, tomos ynthe sis, bilat eral, w/ CAD [place] [address] [place] [facility] [place] [address] Patien t Name: ENID Carrillo t : 975 Age: 48 years Patien [...] s were mailed or given to the mac Rg reted By: Emil Moreno onical ly Signed By: Emil Augustin on 07/18/19 24 3:27 PM [facility] [address], [address], 07/19/2023 15:51:20 Result Notes Documentation Provider Name and Address Organization Details Recorded Time Mri, Breast, Bilateral, W/wo Contrast : [address] [address] Patient Name: ENID QUISPE Patient : 1975 [...] Gadavist intravenous gadolinium contrast according to the reel cart operator's weight-based algorithm for contrast dosage. ([facility] [place] 7[place] [address]-936-90). Maximum intensity projection images and 3-D reformatted images were created for further evaluation. Additionally dynamic contrast enhancement was evaluated with the help of Bia postprocessing software. FINDINGS: The breasts are heterogeneously [...] Interpreted By: Salomón Brown MD AEL BOYLE, SUPERVISOR IND[employer]RIAL GARMENT [address] [place], [address], [facility] 05/13/2023 12:34:29 Mammo, Screening, Tomosynthesis, Bilateral, W/ Cad : [facility] [address] [place] [address] Patient Name: ENID QUISPE Patient : 1975 Age: 48 years Patient Ordering Provider: MICHAEL DONNINGTON EXAM DATE: 07/18/2023 EXAM: MG SCREENING JA MAMMOGRAM INDICATION: Routine screening. PROCEDURE: Multislice imaging of both breasts was performed in standard projections using [employer] tomosynthesis equipment (3D mammography). 2D images [...] patient. Interpreted By: Emil Augustin AEL BOYLE, SUPERVISOR [employer]RI[employer]ARMENT [address] [place], [address], [facility] 07/19/2023 07:24:32 Problems Name Problem SNOMED Code Status Onset Date Resolution Date Notes Provider Name and Address Organization Details Recorded Time Urinary tract infectious disease 28571666 Active 2015 From Automated Load;Provi shobha: Beiting, Stefania;S tatus: Active Not Available [facility] 6 03:56:29 Cyst of ovary 55194946 Active 2015 From Automated Load;Provi shobha: Beiting, Stefania;S tatus: Active Not Available [facility] 6 03:56:29 Problem Notes None recorded. Procedures Surgical History Date Name Laterality Status Provider Name and Address Organization Details Recorded Time 025 Pap Smear collection completed MICHAEL BOYLE, SUPERVISOR [employer]RI[employer]ARMENT [address] [place], [address], [facility] 04/19/2025 15:32:51 025 Most Recent Bone Density completed Miriam Gordon [facility] 04/19/2025 14:45:01 024 Pap Smear collection completed MICHAEL BOYLE, SUPERVISOR [employer]RI[employer]ARMENT [address] [place], [address], [facility] 04/15/2024 15:55:40 024 Date of Last Mammogram completed Miriam Gordon [facility] 04/19/2025 14:40:29 023 Pap Smear collection completed MICHAEL BOYLE, SUPERVISOR [employer]RI[employer]ARMENT [address] [place], [address], [facility] 04/11/2023 15:43:20 023 Date of Last Pap Smear completed Katty Chao [facility] 04/15/2024 09:45:53 022 Airway Resistance completed [facility] 01/08/2022 14:35:00 022 Diffusion Capacity completed [facility] 01/08/2022 14:34:56 022 Lung Volumes, [facility]ysmography [facility] 01/08/2022 14:35:02 022 Demonstration Aerosol/Generator/ Nebulizer/Opticham jess completed Mattie Hannon [facility] 01/08/2022 14:41:59 022 [facility] 14:35:05 020 ROBOTIC ASSISTED HYSTERECTOMY WITH SALPINGECTOMY (SURG) completed Tere Sousa [facility] 06/01/2020 15:10:26 020 Colonoscopy completed Mackenzie Fowler [facility] 01/12/2020 10:28:29 020 Date of Last Colonoscopy completed Miriam Gordon [facility] 04/19/2025 14:34:21 019 Transvaginal Ultrasound; Non-OB completed STEFANIA RICE MD [address] [place], [address], [facility] 04/30/2019 12:42:57 018 Suture/Staple removal completed Jim[facility] 03/31/2018 10:02:58 018 Wound Repair; Intermediate completed DAMEON MULLINS DO [address] [place], [address], [facility] 03/21/2018 10:17:34 018 Excision BN Lesion; scalp, neck, hands, feet, genitalia completed DAMEON MULLINS, DO [address] [place], [address], [facility] 03/21/2018 10:17:29 014 Other completed [facility]rie [facility] 03/05/2018 11:03:13 Other [facility] 03/05/2018 10:57:08 delivery completed Hilariachrystal leon [facility] 03/05/2018 10:57:16 Removal of tonsils completed Gloria bateman [facility] 03/05/2018 10:57:24 [facility] 03/05/2018 10:57:45 Other completed [facility] 03/05/2018 10:57:52 Imaging Results None recorded. Procedure [...] completed Not Available Not Available Not Available Crawford 5 mg-325 mg tablet Take 1 tablet [...] Not Available No t Available Fish Oil [place] 3-6-9 2 daily active Not Available Not [...] and Address Organization Details Last Updated DateTime 162.56 cm 30.4 kg/m2 04989.8 5 g 95 % 95 % 88 /min 118/70 mm[Hg] Val Gar [facility] 2 14:18:05 Date Recorded Body height Body mass index (BMI) Body weight Systolic And Diastolic Provider Name and Address Organization Details Last Updated DateTime 04/03/2022 162.56 cm 30.4 kg/m2 86048.85 g 112/78 mm[Hg] Ariadne Guzman [facility] 04/03/2022 15:40:02 Date Recorded Body mass index (BMI) Body weight Provider Name and Address Organization Details Last Updated DateTime 04/11/2023 29.4 kg/m2 26389.3 g MICHAEL BOYLE, SUPERVISOR [employer]MENT [address] [place], [address], [facility] 04/11/2023 15:42:17 Date Recorded Body height Systolic And Diastolic Provider Name and Address Organization Details Last Updated DateTime 04/11/2023 162.56 cm 118/84 mm[Hg] Miriam Hughes [facility] 04/11/2023 14:57:45 Date Recorded Body height Body mass index (BMI) Body weight Systolic And Diastolic Provider Name and Address Organization Details Last Updated DateTime 04/15/2024 162.56 cm 26.6 kg/m2 59478.22 g 122/70 mm[Hg] Katty Chao [facility] 04/15/2024 15:18:47 Date Recorded Body height Body mass index (BMI) Body weight Systolic And Diastolic Provider Name and Address Organization Details Last Updated DateTime 04/19/2025 162.56 cm 24.6 kg/m2 15348.11 g 130/74 mm[Hg] Miriam Gordon [facility] 04/19/2025 14:40:14 Social History Question Answer Notes LastModified by [employer] Details LastModified Time Tobacco Smoking Status [facility] 13:09:31 What Is Your Level Of Caffeine Consumption? Occasional [email or web address] Information not available 04/19/2025 Marital Status Informatio n not available 03/05/2018 What Was The Date Of Your Most Recent Tobacco Screening? 04/11/2023 [email or web address] Information not available 04/11/2023 What Is Your Relationship Status? [email or web address] Information not available 04/19/2025 Sex: Female Functional Status Question Answer Note LastModified by [employer] Details LastModified Time Do you use any [...] Unspecified Relation Family history of malignant neoplasm woodn al cousin with breas cancer Not available 03/29/2021 15:37:10 Medical History Condition Response Diabetes Y Bleeding Disorder N Other Y Hyperlipidemia Y Cancer N Stroke N Thyroid Problems Y Depression Sleep Apnea N High Cholesterol Y Heart Attack ([place]) N Deep Vein Thrombosis N Hypertension N [...] Hep A-Hep B 8 completed Not Available [facility] 04/19/2025 14:23:28 Influenza, split virus, quadrivalent, PF 8 completed Not Available [facility] 04/19/2025 14:23:28 Hep A-Hep B 9 completed Not Available [facility] 04/19/2025 14:23:28 Influenza, split virus, quadrivalent, preservative 9 completed Not Available [facility] 04/19/2025 14:23:28 Hep A-Hep B 3 completed [facility] Available [facility] 04/19/2025 14:23:28 Past Encounters Encounter ID Performer Location Encounter Start Date Encounter Closed Date Diagnosis/Indication Diagnosis SNOMED-CT Code Diagnosis ICD10 Code Diagnosis IMO Codes Diagnosis Note [id number] SHAAN GOMEZ PA-C SILO WORKER [facility] [address] [place] [address] 03/05/2018 10:50:38 03/05/2018 11:56:53 Discharge from nipple [id number] N64.52 Routine gy necologic examination done 7823053379 9101 Z01.419 Screening for malignant neoplasm of cervix 081598845 Z12.4 Lesion of vulva 82290427 6 N90.9 [id number] GLYNN CROW PA-C [facility] [address] [place] [address] 03/13/2018 14:34:19 03/14/2018 08:04:51 Dermatofibroma 354663628 D23.9 BENIGN APPEARANCE , PT REASSURED Epidermoid cyst of skin 107397632 L72.0 LEFT MONS PUBIS PT HAS DECOMPRESS ED CYST - NOTHING TO I&D TODAY SHE WOULD LIKE EXCISED TO PREVENT RECURRENCE - DISCUSSED R/B/A WILL SET UP WITH DR. MULLINS Lipoma of thigh 14972086 4 D17.24 BENIGN REASSURANC E SMALL AND ASYMPTOMAT IC - OBSERVE, MAY WISH TO EXCISE IN FUTURE [id number] DAMEON MULLINS DO [facility] [address] [place] [address] 03/21/2018 08:43:12 03/21/2018 12:44:33 Epidermoid cyst of skin 042608314 L72.0 Left mons pubis/late ral labial area Discussed diagnosis of epidermoid cyst recommend treatment with excision r/a/b of procedure discussed with patient informed consent signed see procedure note f/u 10 days for wound check / suture removal due to location- keflex Rx for infection prevention Pain of skin 097648738 R 52 cyst [id number] DAMEON MULLINS DO [facility] [address] [place] [address] 03/31/2018 09:57:59 03/31/2018 10:10:35 Removal of suture 28254650 Z48.02 s/p excision of cyst sutures removed without incident no redness, drainage, streaking- healing well [id number] SHAAN GOMEZ PA-C SILO WORKER [facility] CL[facility] [address] [place] [address] 03/25/2019 11:04:00 03/25/2019 13:09:27 Routine gynecologic examination done 8693589508 9101 Z01.419 Screening for malignant neoplasm of cervix 083287572 Z12.4 History of dysplasia of cervix 201493055 Z87.410 Screening for malignant neoplasm of breast 993163030 Z12.31 On a Wed between - if they do screening then Acute urin kelly tract infection 062066813 N39.0 resolved [id number] STEFANIA RICE MD [facility] [address] [address] 04/30/2019 09:35:06 04/30/2019 10:57:11 Left lower quadrant pain 981116329 R10.32 Patient continues to have some vague [...] hormones are not such a good idea. [id number] BESSIE JIMENEZ MD SURGERY SCHEDULE [address] [place] [address] 08/10/2019 06:19:03 08/10/2019 06:24:34 [id number] SHAAN GOMEZ PA-C SILO WORKER 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 She does not want hysterecto my for now. Will just follow. Menorrhagia 127006316 N9 2.0 Currently is off her hormonal medication because of her intermitte nt pancreatit is. Pain in pelvis 45891752 R10.2 Patient has had intermitte nt recurring [...] hysterosco py which was done in 2013. [id number] SHAAN GOMEZ PA-C SILO WORKER [facility] [address] [place] [address] 04/06/2020 10:47:05 04/06/2020 11:45:09 Routine gynecologic examination done 6860470277 9101 Z01.419 Screening for malignant neoplasm of cervix 720946078 Z12.4 Screening for malignant neoplasm of breast 170162954 Z12.31 On a Wed between 10-12 Menorrhagia 621757587 N9 2.0 [id number] STEFANIA RICE MD [facility] [address] [address] 05/12/2020 10:32:09 05/12/2020 11:13:37 Postoperative care 120127618 Z48.89 risk of surgery given. pt agrees and consent. . npo after midnight. has ibs C. do a bowel cleansing. night before.ris k of surgery discussed. lpt does not want a midline abodminal incision. leave ovaries if normal. check the left ovary since doese have 'more problems from that one and okay to take it out if questionab le. [id number] STEFANIA RICE MD SILO WORKER [facility] [address] [place] [address] 06/20/2020 13:00:32 06/20/2020 13:34:11 Abdominal pain 02641073 R10.9 exam benign but think she is dong too much right now. 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 recheck. [id number] SHAAN GOMEZ PA-C SILO WORKER [facility] [address] [place] [address] 07/27/2020 10:44:35 07/27/2020 11:31:09 Postoperative visit 700319919 Z09 [id number] SHAAN GOMEZ PA-C SILO WORKER [facility] [address] [place] [address] 08/31/2020 10:42:24 08/31/2020 11:24:03 Postoperative care 210474545 Z48.89 cuff with very slow healing. recommend to still d/c sexual penetratio n. recheck one month. not sure what not healing quickly. non smoker. no steriods or other immune suppressan ts. pt understand s the need to recheck and cont light activity until healed or precaustio ns on rupture and fistula given so she can come in sooner if needed. [id number] SHAAN GOMEZ PA-C SILO WORKER [facility] [address] [place] [address] 09/28/2020 11:07:09 09/28/2020 11:37:30 Postoperative visit 733041632 Z09 [id number] SHAAN GOMEZ PA-C SILO WORKER [facility] [address] [place] [address] 03/29/2021 15:14:02 03/29/2021 16:07:24 Gynecologic examination 47809038 Z01.419 Screening for malignant neoplasm of vagina 586560655 Z12.72 Screening for malignant neoplasm of breast 239633854 Z12.31 Saturday or Venereal d isease screening 895072860 Z11.3 Family his tory of breast cancer 701833902 Z80.3 [id number] NICK CHOW MD PULMONARY [address] [facility], [address] [place] [address] 01/08/2022 13:50:25 01/08/2022 16:24:28 Asthma 022494735 J45.909 I will put her on a return to clinic as needed. She has perfectly normal PFTs. Her control is good currently. I do not think she needs both a pulmonolog ist and an brass wind instrument maker managing her asthma at this point in time. Given her significan t allergy history, I think she is better served by continuing her asthma therapies through her brass wind instrument maker as they can do desensitiz ation therapy. If this fails to be sufficient , then I would be happy to see her back for evaluation of of asthma Biologics. Allergic rhinitis 701249 04 J30.9 [id number] MARIUM PONCE [facility] [address] [place] [address] 04/03/2022 15:14:23 04/03/2022 16:37:23 Gynecologic examination 83563799 Z01.419 Screening for malignant neoplasm of vagina 608417578 Z12.72 [id number] MONICA FULLER [facility] [address] [place] [address] 04/11/2023 14:47:39 04/11/2023 15:35:19 Gynecologic examination 08371048 Z01.419 PAP of vaginal cuff todaywill contact patient with resultspat ient to follow up in one year Screening for malignant neoplasm of vagina 864937048 Z12.72 Heterogene ously dense breast composition 888402429 R92.2 Screening mammogram due nowadjunct MRI screening due at 6 months Family his tory of breast cancer 533751998 Z80.3 family history of breast cancer: maternal aunt: paternal aunt: paternal cousinsee above note Computed t omography result abnormal 125674042 R93.[address] [facility] at [facility] recently revealed right floating clip from previous tubal ligationwi ll obtain records for reviewadvi sed patient will then review with Dr. Magda smith contact patient if follow up needed Menopausal flushing 1984 38576 N95.1 Discussed risk and benefits of HRT with patientAls o discussed FDA approved Brisdellep atient reports that she is not interested in medication at this time [id number] MONICA FULLER [place] [address] [place] [address] 04/15/2024 15:09:46 04/15/2024 15:54:17 Gynecologic examination 57007623 Z01.419 PAP of vaginal cuff todaywill contact patient with resultspat ient to follow up in one year Screening for malignant neoplasm of vagina 113092314 Z12.72 [facility] [place] for malignant neoplasm of breast [id number] 29615 Z91.89 repeat MRI - adjunct screening Heterogene ously dense breast composition [id number] R92.2 patient doing adjunct MRI screening Screening for malignant neoplasm of breast [id number] Z12.39 repeat screening mammogram due after 07/18/24 Nausea and vomiting 1693 2000 R11.2 intermitte nt nausea and vomiting : usually occurs when exercising - advised patient to follow with PCP [id number] MONICA FULLER [place] [address] [place] [address] 04/19/2025 14:22:32 04/19/2025 15:25:59 Gynecologic examination [id number] Z01.088 [id number] PAP of vaginal cuff todaywill contact patient with resultspat ient to follow up in one year Screening for malignant neoplasm of vagina [id number] Z12.72 782540 Heterogene ously dense breast composition 907477370 R92.333 [id number] see note above [facility] [place] [facility] malignant neoplasm of breast [id number] 18059 Z91.89 [id number] TC = 24.09Discu ssed and encouraged adjunct [...] Thompson Member ID Guarantor Name 04/19/2025 1 [employer]) [id number] Pato Goldman a [id number] Enid Goldmana 04/26/2025 1 [employer] [id number] Enid Goldman a [id number] Enid Hook[employer]qua 06/08/2020 1 [facility] [id number] Robe HookAcqu a [id number] Enid Goldmana 04/26/2020 PAYMENT PLAN Enid [employer] 04/03/2022 1 [facility] [id number] Pato HookAcqu a [id number] Enid Goldmana 03/25/2019 1 [facility] [id number] Robe Goldman a [id number] Enid Goldmana 11/04/2023 PAYMENT PLAN Enid Goldmana Notes Date Note Type Note Provider Name and Address Organization Details Recorded Time 01/08/2022 text/html Enid comes in for evaluation [...] when she travels [facility] the [facility] that her symptoms all resolved. She also [...] TLC 113% DLCO 104% NICK CHOW MD [address] [place] [address], [address], [facility] 01/08/2022 16:12:01 04/03/2022 text/html 47 yo [...] no issues or concerns.Planning to move to [place] next summer after her son graduates from high school SHAAN GOMEZ PA-C [address] [place], [address], [facility] 04/03/2022 16:06:59 04/11/2023 text/html 48 year old female presents today for annual exampreviously seen by Shiva Wheeler PAP: 04/03/22: vaginal cuff: negative with no HPV co testinghistory of LEEP 2014: Cryo times 4 before age 22: yearly PAP through 2024 history of hysterectomy with BSO 2020 - Dr. Ricelasyovanny mammogram: 11/27/21: benign: heterogeneously dense breast tissueMRI: 11/27/21: benign: heterogeneously dense breast tissuefamily history of breast cancer: maternal aunt: paternal aunt: paternal cousin colon screening: colonoscopy: 08/10/19: normal: repeat 10 years MICHAEL BOYLE APRN [address] [place], [address], [facility] 04/11/2023 15:46:09 04/15/2024 text/html 49 year old female presents today for annual [...] 08/10/19: normal: repeat 10 years MICHAEL BOYLE, [employer] [address] [place], [address], [facility] 04/15/2024 15:56:38 04/19/2025 text/html 50 year old female presents [...] colon, uterine or ovarian cancer MICHAEL BOYLE, [employer] [address] [place], [address], [facility] 04/19/2025 15:33:21 OBGyn Episode No OBEpisode recorded.
--- OUTSIDE RECORDS SUMMARY | 2025-05-04 15:43 | XMS_ITS | Encounter Summary ---
Author Organization Healthcare Address [address] [place] [address] Care Team Providers Care Java Manager Name Role Phone Lexi Murrell NAUTICAL INSTRUMENT MECHANIC Primary Care Provider +1- [phone] Encounter Details Date Type Department Care Team (Late Contact Info) Description 07/14/2024 Orders Only External Location [address] [place] [address] Lexi Murrell, NAUTICAL INSTRUMENT MECHANIC [address] [place] [address] Social History Tobacco Use Types Packs/Day Years [...] Medical Office Building Surgical Specialties [address] [facility], [address] [place] [address] Mark Nolasco MD [address] [facility] [address] [place] [address] documented as of this encounter Procedures Procedure Name Priority Date/Time Associated Diagnosis Comments NM OUTSIDE IMAGES 07/14/2024 8:52 AM EST documented in this encounter Results * NM OUTSIDE IMAGES (07/14/2024 8:52 AM EST) Anatomical Region Laterality Modality Nuclear Medicine 07/14/2024 8:52 AM EST Lexi Murrell NAUTICAL INSTRUMENT MECHANIC IMG NM PROCEDURES Final Re sult documented in this encounter Visit Diagnoses Not on filedocumented in this encounter Care Teams Java Manager Relationship Specialty Start Date End Date Lexi Murrell APRN [address] [place] [address] PCP - General 08/26/24 documented as of this encounter
--- OUTSIDE RECORDS SUMMARY | 2025-05-04 15:44 | XMS_ITS | Clinical Summary ---
Author Organization [facility] Address [address] [place] [address] Care Team Providers Care Pit Crane Operator Name Role Phone Handy Lexi Julian ANDERSON Primary Care Provider +1- [phone] Allergies No known active allergies Medications Mounjaro [...] Sister Liya Maternal Grandfather Trent Maternal Grandmother Ettrick Mother Maylin Mother's Sister Paulino Paternal Grandmother [...] How often do you attend chur or confucianist services? More than 4 times per year 08/26/2024 Do you belong to any clubs o r organizations such as episcopalian groups, unions, fraternal or athletic groups, or [...] Recorded Patient Health Questionnaire-2 Score 0 08/26/2024 [facility] - Occupational [...] any time in the past 12 m [facility], were you homeless or living in a group home (including now)? No 08/26/2024 Utilities Answer Date [...] Office Building Surgical Specialties [address] [facility], [address] [place] [address] Mark Nolasco MD [address] [facility] [address] [place] [address] Health Maintenance Due Date Last [...] 01/24/2020 Sigmoidoscopy 01/24/2020 [facility]-Colorectal Cancer Screening 01/24/2020 [facility]-Breast Cancer Screening 2025 [facility]-Zoster Vaccines (1 of 2) 2025 [facility]- SDOH Screenings 02/23/2025 [facility]-Adult SDOH Screenings 02/23/2025 08/26/2024 [id number] Vaccine ( - season) 2025 [facility]-Influenza Vaccine (#1) 03/15/202504/29, 07/01/2018 [facility]-Depression Screening [...] patient's age to complete this topic Insurance [employer] Care Teams Pit Crane Operator Relationship Specialty Start Date End Date Lexi Murrell APRN [address] [place] [id number] PCP - General 08/26/24
[2025-05-04 16:35] LABS: Anion Gap 13.2 mEq/L (5-15); Blood Urea Nitrogen 15 mg/dl (7-17); Calcium 9.6 mg/dl (8.4-10.2); Carbon Dioxide 29 mmol/L (22.0-30.0); Chloride 100 mmol/L (98-107); Creatinine,Serum 0.80 mg/dl (0.52-1.04); Estimated Glomerular Filt Rate 76 ml/min (>60); GFR (African American) 92 ML/MIN (>60); Glucose 86 mg/dl (74-100); Potassium 4.2 mmoL/L (3.5-5.1); Sodium 138 mmol/L (136-145)
[2025-05-06 20:28] LABS: Calcium, Ionized 5.2 mg/dL (4.5-5.6)
== END 2025-05-04 23:59 | disposition home or self-care (01) ==
LOC: LAB 15:41
PROVIDERS: PCP Nurse Practitioner Family; Visit Provider Nurse Practitioner
DX: E21.0 Primary hyperparathyroidism (principal)
CPT/HCPCS: 36415; 80048; 82330; 83970